=== PATIENT | female | born 1945 | race Caucasian/White ===

== ENCOUNTER 2018-10-01 14:57 | Inpatient (IN) ==
[2018-10-01] MEDS ORDERED: MoRPHine SULFATE 4 MG/ML 1 ML CARP\\VIAL IV PRN (15:37)
[2018-10-01] MEDS ORDERED: SODIUM CHLORIDE 0.9% 1000ML 500 ML IV ONE (15:37)
[2018-10-01] MEDS ORDERED: ONDANSETRON INJ 2 MG/ML 2 ML VIAL IV STA (15:37)
[2018-10-01 16:11] LABS: Basophils # (auto) 0.01 K/uL (0-0.2); Basophils % (auto) 0.1 %; Eosinophils # (auto) 0.06 K/uL (0-0.5); Eosinophils % (auto) 0.6 %; Hematocrit (blood only) 38.5 % (37-47); Hemoglobin 12.8 g/dL (12.0-16.0); Immature Granulocytes # (auto) 0.05 K/uL (0.00-0.02); Immature Granulocytes % (auto) 0.5 %; Lymphocytes # (auto) 1.03 K/uL (1.2-3.4); Lymphocytes % (auto) 10.8 %; Mean Corpuscular Hgb Conc 33.2 g/dL (32-36); Mean Corpuscular Volume 86.9 fL (80-100); Mean Platelet Volume 10.9 fL (7.4-10.4); Monocytes # (auto) 0.59 K/uL (0.11-0.59); Monocytes % (auto) 6.2 %; Neutrophils # (auto) 7.81 K/uL (1.4-6.5); Neutrophils % (auto) 81.8 %; Platelet Count 172 K/uL (130-400); RDW Coefficient of Variation 13.2 % (11.5-14.5); RDW Standard Deviation 42.4 fL (36.4-46.3); Red Blood Count 4.43 M/uL (4.2-5.4); White Blood Count 9.55 K/uL (4.8-10.8)
[2018-10-01 16:25] LABS: Partial Thromboplastin Time 27.5 Seconds (21.0-31.0); Prothrombin Time 10.7 Seconds (9.0-12.0)
[2018-10-01 16:31] LABS: BUN Creatinine Ratio 42.5 (10-20); Calcium 9.5 mg/dl (8.5-10.1); Creatinine Clr Calc Pharmacy 61.4 ml/min; Est GFR (African American) 77.1; Est GFR (Non-African American) 66.6; Potassium 4.9 mmol/L (3.5-5.1)
--- NOTE | 2018-10-01 17:02 | XRay Report ---
XR femur RT 2V routine CLINICAL HISTORY: fall, pain trauma. Pain. COMPARISON: None. DISCUSSION: Comminuted oblique fracture proximal right femoral shaft. This extends to the intertrocha nteric region of the right hip. No evidence for acetabular protrusion. Slice appear migration of the right femoral shaft. There is no evidence for soft tissue swelling. IMPRESSION: Comminuted fracture proximal femoral shaft. Mild superior migration right femoral shaft. Focal extension to the lesser trochanter and intertrochanteric region. The above report was generated using voice recognition software. It may contain grammatical, syntax or spelling errors. Electronically signed by: Zain Carreno M.D. 10/01/2018 5:00 PM
--- NOTE | 2018-10-01 17:03 | XRay Report ---
XR hip RT 2-3V w pelvis CLINICAL HISTORY: fall, pain COMPARISON: None. DISCUSSION: Comminuted fracture proximal femoral shaft. This extends to the intertrochanteric region and to lesser trochanter. No evidence for dislocation. IMPRESSION: Comminuted fracture proximal right femoral shaft extending to the intertrochanteric regio n of the right hip. No evidence of dislocation. The above report was generated using voice recognition software. It may contain grammatical, syntax or spelling errors. Electronically signed by: Zain Carreno M.D. 10/01/2018 5:01 PM
--- NOTE | 2018-10-01 17:03 | XRay Report ---
XR chest 1V not portable CLINICAL HISTORY: hip fx, fall trauma. Pain. COMPARISON STUDY: No previous studies for comparison. FINDINGS: The bones soft tissues and hemidiaphragms are normal. The cardiomediastinal silhouette is n ormal. The lungs are clear. The pulmonary vasculature is normal. Minimal platelike atelectasis left b ase. IMPRESSION: No acute process. The above report was generated using voice recognition software. It may contain grammatical, syntax or spelling errors. Electronically signed by: Zain Carreno M.D. 10/01/2018 5:02 PM
--- NOTE | 2018-10-01 17:24 | Emergency Department Note ---
Entered by Nyla Duff acting as a scribe for History of Present Illness General Chief complaint: Hip Pain Stated complaint: FALL, THIGH & HIP PAIN Time Seen by Provider: 10/01/18 15:29 Source: patient History of Present Illness Provider complaint: right hip pain Onset (ago): minute(s) (shortly prior to arrival ) Location: lower extremity (hip) and right Maximum Pain Intensity: 10 Quality: + other (pain) Treatments prior to arrival: other (75 Fentanyl, 4 Zofran ) The patient is a 73 year old female who presents to the Emergency Department with complaints of right hip pain occurring shortly prior to arrival. She rates her pain at a 10/10. She states that she fell while standing in the kitchen. She stopped to turn and fell. She reports hitting her right back when she fell. She states that she was not able to stand up after she fell. The patient states that she is not on any blood thinners but does take medication for diabetes. Review of notes show that the patient was given 75 mcg of Fentanyl and 4 mg of Zofran en route. Home Medications Home Medications Medication Instructions Recorded Confirmed Type acetaminophen [Tylenol Extra 1,000 mg PO Q6H PRN 10/01/18 10/01/18 History Strength] ascorbic acid (vitamin C) [Vitamin 1,000 mg PO DAILY 10/01/18 10/01/18 History C] calcium carbonate-vitamin D3 1 cap PO DAILY 10/01/18 10/01/18 History [Calcium 600 + D(3)] omega 5-yop-wgr-fish oil [[place]-3] 1 cap PO BID 10/01/18 10/01/18 History pioglitazone-metformin [Actoplus 1 tab PO BID 10/01/18 10/01/18 History MET] Allergies Allergy/AdvReac Type Severity Reaction Status Date / Time aspirin Allergy Intermediate CHEST Unverified 10/01/18 16:02 TIGHTNESS, BLURRED VISION Past Med/Surg History Medical History Diabetes (Chronic) Social History Feels Safe at Home: Yes Smoking Status: Never smoker Review of Systems See HPI for pertinent positives & negatives. and A total of 10 systems reviewed and were otherwise negative Physical Exam Vital Signs Vital Signs - 24 hr 10/01/18 15:17 10/01/18 17:03 Temperature 37.0 C Temperature Source Oral Sepsis Recent Fever Within 48 Hours No Sepsis New/Unexplained Change in Mental Status No Sepsis Action Taken by Nursing No Action Required Pulse Rate 86 Pulse Rate [Left Finger] 87 Respiratory Rate 18 20 Respiratory Effort / Characteristics Non-Labored Non-Labored Respiratory Depth Normal Normal Respiratory Pattern Regular Regular Blood Pressure 180/89 H Blood Pressure [Left Arm] 181/89 H Blood Pressure Mean 119 Blood Pressure Mean [Left Arm] 119 Pulse Oximetry 95 94 Oxygen Delivery Method Room Air Room Air GENERAL: Patient is in no acute distress. HEENT: No acute trauma, normocephalic atraumatic, mucous membranes moist, no nasal congestion, no scleral icterus. No scalp hematoma. NECK: No stridor, no adenopathy, no meningismus, trachea is midline. Nontender posterior C spine. LUNGS: Clear to auscultation bilaterally, no wheeze, no rhonchi, breath sounds equal. HEART: Without murmurs gallops or rubs, regular rate and rhythm. ABDOMEN: Soft, nontender, bowel sounds positive, no hernias, no peritonitis. EXTREMITIES: No edema. Right leg seems slightly shortened compared to the left. There is pain with palpation over the proximal right femur. There is pain with movement in the same area. No contusion. The knee and ankle appear non-tender. NEUROLOGIC: Oriented x 3, no acute motor or sensory deficits, no focal weakness. SKIN: No rash, no jaundice, no diaphoresis. Course 1531: The patient was evaluated in room C10. A history and physical were performed. 1709: I updated the patient and her on her imaging results. 1716: I discussed the patient's case with Dr. Sunny Weiner who will evaluate the patient for further management. Consultations Consultation #1: Dr. Sunny Weiner Time: 17:16 Administered Medications Morphine Sulfate (Morphine Sulfate) 4 mg IV Q15M PRN PRN Reason: Severe Pain (Rating 7,8,9,10) Stop: 10/15/18 15:36 Last Admin: 10/01/18 16:20 Dose: 4 mg Documented by: [id number] Discontinued Medications Sodium Chloride (Nss 1000ml) 500 mls @ 999 mls/hr IV .Q31M ONE Stop: 10/01/18 16:07 Last Infusion: 10/01/18 16:52 Dose: 0 mls/hr Documented by: [id number] Admin: 10/01/18 16:20 Dose: 999 mls/hr Documented by: [id number] Ondansetron HCl (Zofran) 4 mg IV NOW STA Stop: 10/01/18 15:38 Last Admin: 10/01/18 16:20 Dose: 4 mg Documented by: [id number] Medical Decision Making Differential Diagnosis Differentials include hip fracture, pelvic fracture, femur fracture, knee fracture, contusion, head or neck injury, anemia, and UTI. Medical Records Attestation: I reviewed the patient's medical records. Home Medications Current Medication List: was personally reviewed by me Laboratory Data Attestation: I reviewed the patient's lab results. Result diagrams: 10/01/18 15:53 10/01/18 15:53 Lab Results 10/01/18 10/01/18 10/01/18 Range/Units 15:53 15:53 15:53 WBC 9.55 (4.8-10.8) K/uL RBC 4.43 (4.2-5.4) M/uL Hgb 12.8 (12.0-16.0) g/dL Hct 38.5 (37-47) % MCV 86.9 (80-100) fL MCH 28.9 (25-34) pg MCHC 33.2 (32-36) g/dL RDW Std Deviation 42.4 (36.4-46.3) fL RDW Coeff of Mary 13.2 (11.5-14.5) % Plt Count 172 (130-400) K/uL MPV 10.9 H (7.4-10.4) fL Immature Gran % (Auto) 0.5 % Neut % (Auto) 81.8 % Lymph % (Auto) 10.8 % [place] % (Auto) 6.2 % Eos % (Auto) 0.6 % Baso % (Auto) 0.1 % Immature Gran # (Auto) 0.05 H (0.00-0.02) K/uL Neut # (Auto) 7.81 H (1.4-6.5) K/uL Lymph # (Auto) 1.03 L (1.2-3.4) K/uL [place] # (Auto) 0.59 (0.11-0.59) K/uL Eos # (Auto) 0.06 (0-0.5) K/uL Baso # (Auto) 0.01 (0-0.2) K/uL PT 10.7 (9.0-12.0) Seconds INR 1.0 (0.9-1.1) APTT 27.5 (21.0-31.0) Seconds PTT Ratio 1.0 Sodium 133 L (136-145) mmol/L Potassium 4.9 (3.5-5.1) mmol/L Chloride 99 (98-107) mmol/L Carbon Dioxide 29 (21-32) mmol/L Anion Gap 5.0 (3-11) BUN 37 H (7-18) mg/dl Creatinine 0.86 (0.6-1.2) mg/dl Est Cr Clr Drug Dosing 61.4 ml/min Est GFR ( Amer) 77.1 Est GFR (Non-Af Amer) 66.6 BUN/Creatinine Ratio 42.5 H (10-20) Glucose 144 H (70-99) mg/dl Calcium 9.5 (8.5-10.1) mg/dl Urine Color Urine Appearance (Clear) Urine pH (4.5-7.5) Ur Specific [place] (1.000-1.030) Urine Protein (Negative) Urine Glucose (UA) (Negative) Urine Ketones (Negative) Urine Blood (Negative) Urine Nitrite (Negative) Urine Bilirubin (Negative) Urine Urobilinogen (Negative) Ur Leukocyte Esterase (Negative) 10/01/18 Range/Units 17:15 WBC (4.8-10.8) K/uL RBC (4.2-5.4) M/uL Hgb (12.0-16.0) g/dL Hct (37-47) % MCV (80-100) fL MCH (25-34) pg MCHC (32-36) g/dL RDW Std Deviation (36.4-46.3) fL RDW Coeff of Mary (11.5-14.5) % Plt Count (130-400) K/uL MPV (7.4-10.4) fL Immature Gran % (Auto) % Neut % (Auto) % Lymph % (Auto) % [place] % (Auto) % Eos % (Auto) % Baso % (Auto) % Immature Gran # (Auto) (0.00-0.02) K/uL Neut # (Auto) (1.4-6.5) K/uL Lymph # (Auto) (1.2-3.4) K/uL [place] # (Auto) (0.11-0.59) K/uL Eos # (Auto) (0-0.5) K/uL Baso # (Auto) (0-0.2) K/uL PT (9.0-12.0) Seconds INR (0.9-1.1) APTT (21.0-31.0) Seconds PTT Ratio Sodium (136-145) mmol/L Potassium (3.5-5.1) mmol/L Chloride (98-107) mmol/L Carbon Dioxide (21-32) mmol/L Anion Gap (3-11) BUN (7-18) mg/dl Creatinine (0.6-1.2) mg/dl Est Cr Clr Drug Dosing ml/min Est GFR ( Amer) Est GFR (Non-Af Amer) BUN/Creatinine Ratio (10-20) Glucose (70-99) mg/dl Calcium (8.5-10.1) mg/dl Urine Color Yellow Urine Appearance Clear (Clear) Urine pH 7.0 (4.5-7.5) Ur Specific [place] 1.014 (1.000-1.030) Urine Protein Negative (Negative) Urine Glucose (UA) Negative (Negative) Urine Ketones Trace H (Negative) Urine Blood Negative (Negative) Urine Nitrite Negative (Negative) Urine Bilirubin Negative (Negative) Urine Urobilinogen Negative (Negative) Ur Leukocyte Esterase Negative (Negative) Imaging Data Radiologist's Impression: Radiology results as stated below per my review and the radiologist's interpretation: XR chest 1V not portable CLINICAL HISTORY: hip fx, fall trauma. Pain. COMPARISON STUDY: No previous studies for comparison. FINDINGS: The bones soft tissues and hemidiaphragms are normal. The cardiomediastinal silhouette is normal. The lungs are clear. The pulmonary vasculature is normal. Minimal platelike atelectasis left base. IMPRESSION: No acute process. The above report was generated using voice recognition software. It may contain grammatical, syntax or spelling errors. Electronically signed by: Zain Carreno M.D. 10/01/2018 5:02 PM XR hip RT 2-3V w pelvis CLINICAL HISTORY: fall, pain COMPARISON: None. DISCUSSION: Comminuted fracture proximal femoral shaft. This extends to the intertrochanteric region and to lesser trochanter. No evidence for dislocation. IMPRESSION: Comminuted fracture proximal right femoral shaft extending to the i ntertrochanteric region of the right hip. No evidence of dislocation. The above report was generated using voice recognition software. It may contain grammatical, syntax or spelling errors. Electronically signed by: Zain Carreno M.D. 10/01/2018 5:01 PM XR femur RT 2V routine CLINICAL HISTORY: fall, pain trauma. Pain. COMPARISON: None. DISCUSSION: Comminuted oblique fracture proximal right femoral shaft. This extends to the intertrochanteric region of the right hip. No evidence for acetabular protrusion. Slice appear migration of the right femoral shaft. There is no evidence for soft tissue swelling. IMPRESSION: Comminuted fracture proximal femoral shaft. Mild superior migration right femoral shaft. Focal extension to the lesser trochanter and intertrochanteric region. The above report was generated using voice recognition software. It may contain grammatical, syntax or spelling errors. Electronically signed by: Zain Carreno M.D. 10/01/2018 5:00 PM ECG Data Attestation: I personally reviewed and interpreted this ECG as follows: Indication: other (hip fracture ) Rate (beats per minute): 78 Rhythm: normal sinus Findings: + other (LVH); no PVC and no ST elevation Blood Pressure Blood Pressure Findings: Elevated blood pressure Blood Pressure Disposition: further management by hospitalist [facility] Narrative No leukocytosis or concerning anemia. No coagulopathy. No significant electrolyte abnormality. Chest film does not show pneumonia or CHF. EKG shows a sinus rhythm, no acute ischemia. Pelvis and right femur films demonstrate a proximal femur fracture with extension into the right hip. On exam, the patient did seem neurovascularly intact distally in the right lower extremity. The patient did not strike her head with this fall, there were no scalp hematomas, there was no neck pain. Patient received IV saline, IV Zofran. She was given IV morphine for pain control. The patient is in need of a hospital stay. She is going to require orthopedic intervention. I did consult the on-call hospitalist. The disability case manager has been involved. The patient and her are aware of the findings from today. Impression & Plan Closed fracture of right hip, Fall Discharge Plan Visit Data Chief Complaint: Hip Pain Stated Complaint: FALL, THIGH & HIP PAIN ED Provider: Contreras Holly Discharge Problem: Closed fracture of right hip, Fall Patient Disposition: Being Evaluated by Hospitalist Forms Stand Alone Forms: My [facility] [address] Prescriptions Prescriptions: No Action acetaminophen [Tylenol Extra Strength] 500 mg Tablet 1,000 mg PO Q6H PRN (Reason: Pain) RF: 0 ascorbic acid (vitamin C) [Vitamin C] 500 mg Tablet,Chewable 1,000 mg PO DAILY RF: 0 Calcium 600 + D(3) 600 mg calcium- 200 unit Capsule 1 cap PO DAILY RF: 0 pioglitazone-metformin [Actoplus MET] 15-500 mg tablet 1 tab PO BID RF: 0 [place]-3 350 mg-235 mg- 90 mg-597 mg Capsule,Delayed Release(Dr/Ec) 1 cap PO BID RF: 0 Referrals Referrals: PCP,NO [Primary Care Provider] - Discharge Problem: Closed fracture of right hip Qualifiers: Encounter type: initial encounter Qualified Code(s): S72.001A - Fracture of unspecified part of neck of right femur, initial encounter for closed fracture Fall Qualifiers: Encounter type: initial encounter Qualified Code(s): W19.XXXA - Unspecified fall, initial encounter The scribe's documentation has been prepared under my direction and personally reviewed by me in its entirety. I confirm that the note above accurately re flects all work, treatment, procedures, and medical decision making performed by me.
[2018-10-01 17:34] LABS: Appearance Urine Clear (Clear); Bilirubin Urine Negative (Negative); Blood Urine Negative (Negative); Color Urine Yellow; Glucose Urine UA Negative (Negative); Ketones Urine Trace (Negative); Leukocyte Esterase Urine Negative (Negative); Nitrite Urine Negative (Negative); Protein Urine Negative (Negative); Specific Gravity Urine 1.014 (1.000-1.030); Urobilinogen Urine Negative (Negative)
--- NOTE | 2018-10-01 18:34 | History & Physical Report ---
Date of Service October 01, 2018 Assessment & Plan (1) Closed fracture of right hip: Adult hip fracture order set was used. Cefazolin was chosen for preoperative antibiotic. Dr. lOivia was consulted for surgical evaluation should be kept n.p.o. after midnight Patient will have SCDs and teds for DVT prevention and postop DVT prevention will be based on surgeon's preference Pain control with parenteral opiates, hydration with fluids given her n.p.o. status after midnight Her RCRI is very low given she is no cerebrovascular cardiovascular disease and does not use insulin to treat her diabetes. (2) Diabetes: Regarding her diabetes she typically uses a combination pill of p.o. glitazone and metformin. This will be held in lieu of insulin sliding scale. She will be given a diabetic meal this evening and kept n.p.o. after midnight History of Present Illness Primary Care Provider: NO PCP Patient is living with her family when they are building a home in the area they are new to the area. Patient fell in the kitchen landing on her right side sustaining a comminuted hip fracture. Patient has very little medical problems for her age of 73 only taking an oral medication to control her diabetes. Patient previously has had surgery having hysterectomy in the past with no problems with anesthesia Prior to today the patient had no chest pain or pressure or dyspnea she is bothered by arthritic complaints of back pain where she does usually sleep in a recliner but is not because of shortness of breath is because of focal back pa in. She has no unusual bruising or bleeding she had no melena. In the emergency department her pain is controlled after being given morphine. She has no shortening or rotation although the x-ray is quite impressive Allergies Allergy/AdvReac Type Severity Reaction Status Date / Time aspirin Allergy Intermediate CHEST Unverified 10/01/18 16:02 TIGHTNESS, BLURRED VISION Home Medications Home Medications Medication Instructions Recorded Confirmed Type acetaminophen [Tylenol Extra 1,000 mg PO Q6H PRN 10/01/18 10/01/18 History Strength] ascorbic acid (vitamin C) [Vitamin 1,000 mg PO DAILY 10/01/18 10/01/18 History C] calcium carbonate-vitamin D3 1 cap PO DAILY 10/01/18 10/01/18 History [Calcium 600 + D(3)] omega 4-sza-ifv-fish oil [[place]-3] 1 cap PO BID 10/01/18 10/01/18 History pioglitazone-metformin [Actoplus 1 tab PO BID 10/01/18 10/01/18 History MET] Past Med/Surg History Medical History Diabetes (Chronic) Social History Feels Safe at Home: Yes Smoking Status: Never smoker Review of Systems Review of Systems: ROS: well nourished well developed. No double vision blurry vision No problems with speech or swallowing No palpitations, chest pain or pressure No Wheezing or breathing issues No abdominal pain nausea vomiting diarrhea changes in appetite or weight No burning urine urine frequency or changes in color Right hip pain tenderness to movement No skin rashes or oral lesions No unusual bruising or bleeding Chronic daily low back pain without radicular symptoms No changes in memory or confusion Physical Exam Physical Exam: The patient appeared well nourished and normally developed. Vital signs as documented. Head exam is unremarkable. normocephalic, atraumatic Neck is without jugular venous distension, thyromegaly, or lymphadenopathy Lungs are clear to auscultation and percussion. Cardiac exam reveals Rhythm is regular. First and second heart sounds normal. Abdominal exam reveals normal bowel sounds, no masses, no organomegaly Extremities are nonedematous and both pedal pulses are present he has marked varicosities of lower extremities Neurologic exam is A&Ox3, no focal deficits, lower extremity strength cannot be tested due to fracture Psychologically seems neither anxious or depressed Skin is warm Dry without bruises marked varicosities are noted Results & Data Vital Signs (Past 12 Hours) Vital Signs Temp Pulse Pulse Resp BP BP Pulse Ox 10/01/18 17:03 87 20 181/89 H 94 10/01/18 15:17 37.0 C 86 18 180/89 H 95 Diagnostic Findings Right femur x-ray: Comminuted fracture proximal femoral shaft. Mild superior migration right femoral shaft. Focal extension to the lesser trochanter and intertrochanteric region. ECG Additional Comments: Normal sinus rhythm Possible Left atrial enlargement (1) Closed fracture of right hip Encounter type: initial encounter Qualified Code(s): S72.001A - Fracture of unspecified part of neck of right femur, initial encounter for closed fracture
[2018-10-01] MEDS ORDERED: BISACODYL 10 MG SUPP PR PRN (19:34)
[2018-10-01] MEDS ORDERED: CARBOHYDRATES FOR HYPOGLYCEMIA PO PRN (19:34)
[2018-10-01] MEDS ORDERED: OXYCODONE HCL IR 5 MG TAB (IMMEDIATE RELEASE) PO PRN (19:34)
[2018-10-01] MEDS ORDERED: MAGNESIUM HYDROXIDE SUSP 30 ML UDC PO PRN (19:34)
[2018-10-01] MEDS ORDERED: GLUCAGON FOR INJ 1 MG VIAL SQ PRN (19:34)
[2018-10-01] MEDS ORDERED: ONDANSETRON INJ 2 MG/ML 2 ML VIAL IV PRN (19:34)
[2018-10-01] MEDS ORDERED: DEXTROSE 50% 50 ML SYRINGE IV PRN (19:34)
[2018-10-01] MEDS ORDERED: GLUCOSE 40% GEL 15 GM TUBE PO PRN (19:34)
[2018-10-01] MEDS ORDERED: GLUCOSE 10 TABS/TUBE PO PRN (19:34)
[2018-10-01] MEDS ORDERED: NALOXONE HCL 0.4 MG/1 ML VIAL/CARP IV PRN (19:34)
[2018-10-01] MEDS ORDERED: ACETAMINOPHEN 500 MG TAB PO PRN (19:34)
[2018-10-01] MEDS: MoRPHine SULFATE 2 MG/ML CARP IV PRN ×2 (20:12→22:22)
[2018-10-01] MEDS: SODIUM CHLORIDE 0.9% 1000ML 1,000 ML IV SCH (20:12)
[2018-10-01] MEDS ORDERED: INSULIN ASPART 100 UNITS/ML 3 ML PEN SC SCH (21:00)
--- NOTE | 2018-10-01 21:05 | Anesthesiology Consultation ---
Date of Service October 01, 2018 Assessment & Plan (1) Encounter for pre-operative examination: Chart Review Chart Review: Acceptable Risk for Surgery and Patient NOT seen in Pre Admission Testing Consults Requested none History Height/Weight Height: 5 ft 2 in Weight: 94.3 kg Allergies Allergy/AdvReac Type Severity Reaction Status Date / Time aspirin Allergy Intermediate CHEST Unverified 10/01/18 16:02 TIGHTNESS, BLURRED VISION Medications Home Medications Medication Instructions Recorded Confirmed Last Taken acetaminophen [Tylenol Extra 1,000 mg PO Q6H PRN 10/01/18 10/01/18 Unknown Strength] ascorbic acid (vitamin C) [Vitamin 1,000 mg PO DAILY 10/01/18 10/01/18 Unknown C] calcium carbonate-vitamin D3 1 cap PO DAILY 10/01/18 10/01/18 Unknown [Calcium 600 + D(3)] omega 1-kkx-tke-fish oil [[place]-3] 1 cap PO BID 10/01/18 10/01/18 Unknown pioglitazone-metformin [Actoplus 1 tab PO BID 10/01/18 10/01/18 10/01/18 09:00 MET] Active Medications Generic Name Dose Route Start Last Admin Trade Name Freq PRN Reason Stop Dose Admin Sodium Chloride 1,000 mls @ 85 mls/hr 10/01/18 19:34 10/01/18 20:12 Nss 1000ml IV 10/31/18 19:33 85 mls/hr .[id number] LIANA Administration Morphine Sulfate 2 mg 10/01/18 19:34 10/01/18 20:12 Morphine Sulfate IV 10/15/18 19:33 2 mg Q2H PRN Administration MODERATE Pain (Scale 4,5,6) Past Medical History Medical History Diabetes (Chronic) Social History Smoking Status: Never smoker Hx Alcohol Use: No Hx Substance Use: No substance use type: does not use Physical Exam Vital Signs Last Vital Signs Temp 36.9 C 10/01/18 19:35 Pulse 91 H 10/01/18 19:35 Resp 20 10/01/18 19:35 BP 164/80 H 10/01/18 19:35 Pulse Ox 96 10/01/18 19:35 Testing Laboratory Results 10/01/18 15:53 10/01/18 15:53 PT 10.7 Seconds (9.0-12.0) 10/01/18 15:53 INR 1.0 (0.9-1.1) 10/01/18 15:53 APTT 27.5 Seconds (21.0-31.0) 10/01/18 15:53 Urine Color Yellow 10/01/18 17:15 Urine Appearance Clear (Clear) 10/01/18 17:15 Urine pH 7.0 (4.5-7.5) 10/01/18 17:15 Ur Specific [place] 1.014 (1.000-1.030) 10/01/18 17:15 Urine Protein Negative (Negative) 10/01/18 17:15 Urine Glucose (UA) Negative (Negative) 10/01/18 17:15 Urine Ketones Trace (Negative) H 10/01/18 17:15 Urine Nitrite Negative (Negative) 10/01/18 17:15 Ur Leukocyte Esterase Negative (Negative) 10/01/18 17:15 10/01/18 20:06 POC Glucose 155 H
[2018-10-01] MEDS: DOCUSATE SODIUM/SENNA 50/8.6MG TAB PO SCH (21:28)
[2018-10-01] MEDS: OMEGA-3 (PURIFIED FISH OIL) 1 GM CAP PO SCH (21:28)
--- NOTE | 2018-10-01 21:47 | CT Scan Report ---
CT femur RT wo con CT DOSE: 1168.02 mGy.cm HISTORY: Fracture. Trauma. trauma/fracture TECHNIQUE: Multiaxial CT images of the right hip and femur were performed and reformatted in the sagi ttal and coronal plane without the use of contrast. A dose lowering technique was utilized adhering to the principles of ALARA. COMPARISON: None. FINDINGS: Comminuted fracture of the right femoral shaft and intertrochanteric region of the right hi p. There is a 10 cm oblique fracture of the proximal femoral shaft. This extends to the intertrochanteri c region where there is a comminuted fracture combined with a impaction type component. The impaction distance is estimated at 3 cm. There is mild external rotation of the right femoral hea d. Several comminuted fracture fragments are identified at intermediately inferior to the intertrochante hyun region. No evidence for dislocation or acetabular protrusion. Moderate surrounding soft tissue edematous change. IMPRESSION: 1. Comminuted fracture of the intertrochanteric region of the right hip with additional involvement o f a 10 cm length of the proximal femoral shaft. 2. Moderate impaction component estimated at approximately 3 cm. 4. No evidence for dislocation. 5. Moderate degenerative change of the femoral head and acetabulum. The above report was generated using voice recognition software. It may contain grammatical, syntax or spelling errors. Electronically signed by: Zain Carreno M.D. 10/01/2018 9:46 PM
[2018-10-01] MEDS ORDERED: Nursing to Pharmacy Communication ONE (22:41)
[2018-10-02] MEDS: INSULIN ASPART 100 UNITS/ML 3 ML PEN SC SCH ×4 (00:07→22:42)
[2018-10-02] MEDS ORDERED: CEFAZOLIN 3000MG 65 ML IV SCH (06:00)
[2018-10-02] MEDS: SODIUM CHLORIDE 0.9% 1000ML 1,000 ML IV SCH ×2 (06:35→22:40)
[2018-10-02 06:55] LABS: Hematocrit (blood only) 34.5 % (37-47); Hemoglobin 11.7 g/dL (12.0-16.0); Mean Corpuscular Hgb Conc 33.9 g/dL (32-36); Mean Corpuscular Volume 85.4 fL (80-100); Mean Platelet Volume 10.8 fL (7.4-10.4); Platelet Count 184 K/uL (130-400); RDW Coefficient of Variation 13.2 % (11.5-14.5); RDW Standard Deviation 41.7 fL (36.4-46.3); Red Blood Count 4.04 M/uL (4.2-5.4); White Blood Count 8.61 K/uL (4.8-10.8)
[2018-10-02 07:16] LABS: Estimated Average Glucose 154 mg/dl
[2018-10-02 07:31] LABS: BUN Creatinine Ratio 32.4 (10-20); Calcium 8.8 mg/dl (8.5-10.1); Creatinine Clr Calc Pharmacy 52.3 ml/min; Est GFR (African American) 63.5; Est GFR (Non-African American) 54.8; Potassium 4.3 mmol/L (3.5-5.1)
[2018-10-02] MEDS: ASCORBIC ACID 500 MG TAB PO SCH (09:47)
[2018-10-02] MEDS: OMEGA-3 (PURIFIED FISH OIL) 1 GM CAP PO SCH ×2 (09:47→22:41)
[2018-10-02] MEDS: CALCIUM 600MG + VIT D 400 IU TAB PO SCH (09:47)
[2018-10-02] MEDS: ACETAMINOPHEN 1,000 MG/100 ML VIAL IV PRN ×2 (09:52→23:14)
--- NOTE | 2018-10-02 11:07 | Anesthesiology Consultation ---
Date of Service October 02, 2018 I spoke with Joan Ulloa from medicine. The patient is medically stable for surgery. Assessment & Plan (1) Encounter for pre-operative examination: Chart Review Chart Review: Acceptable Risk for Surgery and Patient NOT seen in Pre Admission Testing Consults Requested none History Height/Weight Height: 5 ft 2 in Weight: 94.3 kg Allergies Allergy/AdvReac Type Severity Reaction Status Date / Time aspirin Allergy Intermediate CHEST Unverified 10/01/18 16:02 TIGHTNESS, BLURRED VISION Medications Home Medications Medication Instructions Recorded Confirmed Last Taken acetaminophen [Tylenol Extra 1,000 mg PO Q6H PRN 10/01/18 10/01/18 Unknown Strength] ascorbic acid (vitamin C) [Vitamin 1,000 mg PO DAILY 10/01/18 10/01/18 Unknown C] calcium carbonate-vitamin D3 1 cap PO DAILY 10/01/18 10/01/18 Unknown [Calcium 600 + D(3)] omega 2-wvh-wry-fish oil [[place]-3] 1 cap PO BID 10/01/18 10/01/18 Unknown pioglitazone-metformin [Actoplus 1 tab PO BID 10/01/18 10/01/18 10/01/18 09:00 MET] Active Medications Generic Name Dose Route Start Last Admin Trade Name Freq PRN Reason Stop Dose Admin Acetaminophen 1,000 mg 10/01/18 19:34 10/02/18 00:08 Tylenol PO 10/31/18 19:33 1,000 mg Q6H PRN Administration Pain Ascorbic Acid 1,000 mg 10/02/18 09:00 10/02/18 09:47 Vitamin C PO 11/01/18 08:59 Not Given DAILY LIANA Fish Oil 1 gm 10/01/18 21:00 10/02/18 09:47 [place]pin-3 (Purified Fish Oil) PO 10/31/18 20:59 Not Given BID LIANA Sodium Chloride 1,000 mls @ 85 mls/hr 10/01/18 19:34 10/02/18 07:16 Nss 1000ml IV 10/31/18 19:33 85 mls/hr .[id number] LIANA Infusion Acetaminophen 1,000 mg in 100 mls @ 400 mls/hr 10/02/18 09:46 10/02/18 09:52 Ofirmev IV 11/01/18 09:45 400 mls/hr Q8H PRN Administration Pain Insulin Aspart 0 units 10/02/18 00:00 10/02/18 06:41 Novolog Flexpen SC 10/31/18 20:59 Not Given Q6 LIANA Morphine Sulfate 2 mg 10/01/18 19:34 10/01/18 22:22 Morphine Sulfate IV 10/15/18 19:33 2 mg Q2H PRN Administration MODERATE Pain (Scale 4,5,6) Multivitamins/Minerals 1 tab 10/02/18 09:00 10/02/18 09:47 Caltrate Plus PO 11/01/18 08:59 Not Given DAILY LIANA Oxycodone HCl 10 mg 10/01/18 19:34 10/01/18 21:29 Roxicodone Immediate Rel PO 10/15/18 19:33 10 mg Q4H PRN Administration SEVERE Pain (Scale 7,8,9,10) Senna/Docusate Sodium 2 tab 10/01/18 21:00 10/01/18 21:28 Senokot S PO 10/31/18 20:59 Not Given HS LIANA NPO Date Last Intake of Fluids: 10/01/18 Time Last Intake of Fluids: 23:59 Date Last Intake of Solids: 10/01/18 Time Last Intake of Solids: 23:59 Past Medical History Medical History Diabetes (Chronic) Social History Smoking Status: Never smoker Hx Alcohol Use: No Hx Substance Use: No substance use type: does not use Physical Exam Vital Signs Last Vital Signs Temp 37.0 C 10/02/18 08:00 Pulse 74 10/02/18 08:00 Resp 12 10/02/18 08:00 BP 154/77 H 10/02/18 08:00 Pulse Ox 97 10/02/18 08:00 Testing Electrocardiogram Date: 10/01/18 Findings: + NSR @ (78) and + LVH pulmonary disease pattern Chest X-Ray Date: 10/01/18 [facility], [place] [phone] XRay Report Patient: Davin RUSH Date: 10/01/18 MR#: [id number]: [address] Acct ID:[id number]: Date: 1945[facility] Zip: [place] [address] Age: 73Location: ED Sex: F Room/Bed: Att Phy: Diagnosis: FALL, THIGH & HIP PAIN Maria Isabel Phy: PCP,NO Service Date: 10/01/18 [facility] Phy: Interpreting Phy: Zain Carreno MD Admit Phy: Ordering Phy: Contreras Holly M.D. cc: ~ XR chest 1V not portable CLINICAL HISTORY: hip fx, fall trauma. Pain. COMPARISON STUDY: No previous studies for comparison. FINDINGS: The bones soft tissues and hemidiaphragms are normal. The cardiomediastinal silhouette is normal. The lungs are clear. The pulmonary vasculature is normal. Minimal platelike atelectasis left base. IMPRESSION: No acute process. The above report was generated using voice recognition software. It may contain grammatical, syntax or spelling errors. Electronically signed by: Zain Carreno M.D. 10/01/2018 5:02 PM Laboratory Results 10/02/18 06:39 10/02/18 06:39 Blood Type O Positive 10/01/18 19:52 Antibody Screen NEGATIVE 10/01/18 19:52 PT 10.7 Seconds (9.0-12.0) 10/01/18 15:53 INR 1.0 (0.9-1.1) 10/01/18 15:53 APTT 27.5 Seconds (21.0-31.0) 10/01/18 15:53 Hemoglobin A1c 7.0 % (4.5-5.6) H 10/02/18 06:39 Urine Color Yellow 10/01/18 17:15 Urine Appearance Clear (Clear) 10/01/18 17:15 Urine pH 7.0 (4.5-7.5) 10/01/18 17:15 Ur Specific [place] 1.014 (1.000-1.030) 10/01/18 17:15 Urine Protein Negative (Negative) 10/01/18 17:15 Urine Glucose (UA) Negative (Negative) 10/01/18 17:15 Urine Ketones Trace (Negative) H 10/01/18 17:15 Urine Nitrite Negative (Negative) 10/01/18 17:15 Ur Leukocyte Esterase Negative (Negative) 10/01/18 17:15 10/02/18 10/01/18 05:57 23:47 POC Glucose 150 H 181 H
--- NOTE | 2018-10-02 14:56 | Orthopedic Consultation ---
Date of Consultation October 02, 2018 Assessment & Plan (1) Closed comminuted intertrochanteric fracture of right femur: Dr Jolly has reviewed the films. Patient has a right intertrochanteric with subtrochanteric extension fracture which will require trochanteric femoral nailing along with likely cabling of the sub-troch extension. Surgery is currently planned for later this evening versus tomorrow morning. I personally saw and examined the patient. I have indicated her for open versus closed reduction internal fixation with long cephalo-medullary nail for unstable inotrope fracture and subdural extension into proximal femur. The risk benefits complications and alternatives of the procedure were explained to the patient in detail and include however not limited to infections, blood clots, acute blood loss, injury to surrounding nerves, bone, vessels, soft tissue, arthrofibrosis, chronic pain, malunion, nonunion, failure of the implants, cardiac and pulmonary events and . The patient and who was present at bedside wish to proceed with surgical obtained. History of Present Illness Reason for Consultation: Right comminuted proximal femur fracture Attending Physician: Jigar Leon DO History of Present Illness Patient is a 73-year-old female who recently has moved to the area and is living with family until her new house is built. She states that she was in the kitchen getting ready to prepare for some lunch. She ended up planting her foot and turning and she states that she has some low back discomfort at times of which upon turning did cause her some discomfort. She also at that time lost her balance and fell onto her right side. She had immediate pain in her right thigh and was unable to get up and ambulate. Her was close by and witnessed the fall. She denies loss of consciousness. She denies shortness of breath, chest pain, lightheadedness prior to or after the fall. She states that she did not hit her head in the fall. She was brought to [facility] ED where she was seen by the staff. X-rays were taken and was found that she had a right comminuted proximal femur fracture. She was admitted for further care we have been asked to see her for her fracture. Allergies Allergy/AdvReac Type Severity Reaction Status Date / Time aspirin Allergy Intermediate CHEST Unverified 10/01/18 16:02 TIGHTNESS, BLURRED VISION Home Medications Home Medications Medication Instructions Recorded Confirmed Type acetaminophen [Tylenol Extra 1,000 mg PO Q6H PRN 10/01/18 10/01/18 History Strength] ascorbic acid (vitamin C) [Vitamin 1,000 mg PO DAILY 10/01/18 10/01/18 History C] calcium carbonate-vitamin D3 1 cap PO DAILY 10/01/18 10/01/18 History [Calcium 600 + D(3)] omega 1-zkn-rfs-fish oil [[place]-3] 1 cap PO BID 10/01/18 10/01/18 History pioglitazone-metformin [Actoplus 1 tab PO BID 10/01/18 10/01/18 History MET] Patient History Medical History Diabetes (Chronic) Social History Preferred Language: Monegasque Communication Ability: Effective 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 She states that she is more comfortable now that traction has been applied to her right lower extremity. Initially focusing on the right lower extremity, she is currently in 5 pounds of Mcgarry's traction which is left on during exam. Her right proximal thigh has swelling and is tender on palpation. Palpation of the right knee proves it to be nontender. No range of motion is done at this time due to patient being in traction. She has good range of motion of her right ankle and toes and has good sensation. Left lower extremity is benign and is nontender at the left hip knee and ankle and range of motion is within normal limits. Distal pulses are 2/4 bilaterally. Upper extremities are nontender at the shoulders elbows and wrists and she has good range of motion. Distal pulses are equal bilaterally. She denies any neck pain at this time on palpation and denies thoracic and low back pain currently. All of her pain is currently coming from her right proximal femur of which she states the pain is a 5/10 at this time. There is no gross motor or sensory loss at this time. Results & Data Vital Signs (Past 12 Hours) Vital Signs Temp Pulse Resp BP Pulse Ox 10/02/18 12:00 37.2 C 71 12 132/56 L 96 10/02/18 08:00 37.0 C 74 12 154/77 H 97
--- NOTE | 2018-10-02 16:19 | Hospitalist Progress Note ---
Date of Service October 02, 2018 Assessment & Plan (1) Closed fracture of right hip: - Mechanical fall resulting in a comminuted and moderately impacted intertrochanteric fx with imvolvement of the proximal femoral shaft - Geriatric hip protocol; SCDs/TEDs and further DVT prophylaxis per surgical team - Discussed benefits of traction therapy which was ordered by orthopedics; Pain control with Tylenol/Morphine PRN and further recommendations per ortho - Revised cardiac risk assessment low - no cardiovascular/cerebrovascular history/controlled DM/no respiratory or ACS complaints - some limitations of mobility due to muscular issues and sleeps in a recliner but denies respiratory compromise - medically suitable for surgical intervention - Orthopedics following - discussed with team and anesthesiology - anticipating nailing/repair either today vs tomorrow Present on Admission?: Yes (2) Diabetes: - Well controlled given age with A1c of 7 - Hold Pioglitazone/Metformin and cover with SSI - can resume home meds on D/C Subjective Pt reports her pain was getting a little more progressive this morning. Only required Tylenol overnight but having more spasmodic pain. Discussed possibility of traction. Possible surgery today or tomorrow. Verbalizes no other complaints at this time other than dry mouth. No ACS symptoms or known cardiac issue. Diabetes well controlled on oral anti- diabetics. Discussed with orthopedics and anesthesia and is optimal for surgical intervention Review of Systems Constitutional: no fever and no chills Eyes: no worsening vision Ear, Nose, Mouth, Throat: + dry mouth; no sore throat and no dysphagia Respiratory: no cough, no dyspnea and no dyspnea on exertion Cardiovascular: no chest pain, no palpitations, no lightheadedness and no edema Gastrointestinal: no abdominal pain, no nausea, no vomiting, no constipation and no diarrhea/loose stools Genitourinary: no dysuria Musculoskeletal: + joint pain (Right Hip/Femur) Integumentary: no rash Neurologic: + falls (x 1 resulting in fx); no syncope Physical Exam Constitutional: well developed and well nourished; no acute distress and not ill appearing Eyes: + anicteric sclerae ENMT: Ears: no hearing impairment Neck: normal visual inspection and trachea midline Respiratory: normal respiratory effort, lungs clear to auscultation Cardiovascular: RRR, no murmur, no edema Gastrointestinal (Abdomen): Inspection/Auscultation: normal bowel sounds; abdomen not distended Percussion/Palpation: abdomen soft; abdomen nontender Musculoskeletal: Head/Neck/Chest: normocephalic, head atraumatic and neck supple Extremities: no cyanosis and no clubbing RLE slightly shortened and externally rotated; movement to toes intact and reported intact sensation; evidence of chronic venous changes of b/l shins/lower legs; no open areas around R hip or ecchymosis evident in her current placement Skin: no rashes, warm and dry Neurologic: moves all extremities (did not test RLE but does have toe movement) Psychiatric: A+Ox3, euthymic affect Results & Data Vital Signs (Past 12 Hours) Vital Signs Temp Pulse Pulse Resp BP Pulse Ox 10/02/18 15:49 37.3 C 79 19 152/82 H 96 10/02/18 12:00 37.2 C 71 12 132/56 L 96 10/02/18 08:00 37.0 C 74 12 154/77 H 97 (1) Closed fracture of right hip Encounter type: initial encounter Qualified Code(s): S72.001A - Fracture of unspecified part of neck of right femur, initial encounter for closed fracture
[2018-10-02] MEDS ORDERED: BUPIVACAINE/EPINEPHRINE 0.5% MPF 1:200,000 30 ML VIAL ONE (16:33)
[2018-10-02] MEDS: MoRPHine SULFATE 2 MG/ML CARP IV PRN (16:47)
[2018-10-02] MEDS ORDERED: HYDROmorphone INJ 2 MG/ML SYR/VIAL IV PRN (17:21)
[2018-10-02] MEDS ORDERED: ePHEDrine sulfate 50 MG/ML AMP IV PRN (17:21)
[2018-10-02] MEDS ORDERED: ONDANSETRON INJ 2 MG/ML 2 ML VIAL IV PRN (17:21)
[2018-10-02] MEDS ORDERED: ATROPINE SULFATE 0.1 MG/ML 10ML SYR IV PRN (17:21)
[2018-10-02] MEDS ORDERED: DEXAMETHASONE SOD INJ 4 MG/ML VIAL IV PRN (17:21)
[2018-10-02] MEDS ORDERED: fentaNYL citrate 100 MCG/2 ML VIAL ONE ×5 (17:22→21:48)
[2018-10-02] MEDS ORDERED: MIDAZOLAM HCL 1 MG/ML 2ML VIAL ONE ×2 (17:22)
[2018-10-02] MEDS ORDERED: PROPOFOL IV EMULSION 10 MG/ML 20 ML VIAL IV ONE ×2 (17:22→18:06)
--- NOTE | 2018-10-02 17:49 | History & Physical Bridge Note ---
Date of Service October 02, 2018 History & Physical Bridge Note I have examined the patient, reviewed the History & Physical and in the interval since the performance of the History & Physical I have noted the following changes of clinical significance: no changes noted
[2018-10-02] MEDS ORDERED: ROCURONIUM BROMIDE 10 MG/ML 5 ML VIAL ONE (18:06)
[2018-10-02] MEDS ORDERED: DEXAMETHASONE SOD INJ 4 MG/ML VIAL ONE (18:06)
[2018-10-02] MEDS ORDERED: ONDANSETRON INJ 2 MG/ML 2 ML VIAL ONE (18:06)
[2018-10-02] MEDS ORDERED: NEOSTIGMINE METHYLSULFATE 5 MG/5 ML SYR ONE (18:06)
[2018-10-02] MEDS ORDERED: BACITRACIN INJ 50,000 UNIT VIAL ONE (18:11)
[2018-10-02] MEDS ORDERED: PHENYLEPHRINE HCL 10 MG/ML VIAL ONE (20:53)
--- NOTE | 2018-10-02 21:02 | Fluoroscopy Report ---
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 COMPARISON: Right hip radiographs 10/01/2018 TECHNIQUE: 7 spot fluoroscopic images of the right hip were obtained utilizing 194.9 seconds fluorosc opy time FINDINGS: Status post placement of an intratrochanteric nail with elongated medullary britney fixating the previous ly described comminuted proximal right femoral fracture. There is improved alignment with persistent several millimeters lateral displacement about the greater trochanteric fracture with a few millimete rs medial displacement about the lesser trochanteric fracture. Proximal cerclage wires of the humeral shaft with 2 distal cannulated screws. Degenerative changes of the knee and hip. IMPRESSION: Fluoroscopic assistance as above. Please see operative report for further details. The above report was generated using voice recognition software. It may contain grammatical, syntax o r spelling errors. Electronically signed by: Matty Mccarthy M.D. 10/02/2018 9:01 PM
--- NOTE | 2018-10-02 21:11 | Post Operative Brief Note ---
Immediate Post Op Note v1 Date of Surgery October 02, 2018 Pre & Post Diagnosis Operation Date: 10/02/18 09:10 Pre-Op Diagnosis: RIGHT FEMUR FRACTURE Post-Op Diagnosis: RIGHT FEMUR FRACTURE Procedure Operation Date: 10/02/18 09:10 Actual Procedures p Right Long Trochanteric Nail(Right) - Christopher Jolly DO Surgeon Christopher Jolly DO Dining Room Helper none Estimated Blood Loss 475 Findings Consistent with Post-Op Diagnosis Fluids 1300 cc LR Specimens none Anesthesia Type General Complications none Disposition Disposition: Recovery Room Overlapping Procedure I was present for: the critical portions of procedure. I was immediately available: during the entire case. Back up surgeon: was not required during procedure.
[2018-10-02] MEDS: fentaNYL citrate 100 MCG/2 ML VIAL IV PRN ×2 (21:48→21:55)
--- NOTE | 2018-10-02 21:53 | Orthopedic Progress Note ---
Date of Service October 02, 2018 Assessment & Plan (1) Closed comminuted intertrochanteric fracture of right femur: s/p open reduction internal fixation, right hip, cephalomedullary nail and cables -ancef x 24 -DVT ppx - lovenox 40 q daily -TTWB RLE -PT/OT when medically stable -am labs -PO XR demonstrates a well aligned well fixed orthopedic implant, near anatomic alignment of the fracture. Subjective Post Operative Progress Note Patient seen in pacu, comfortable, c/o pain, no acute issues. Review of Systems Review of Systems: All systems reviewed & are unremarkable except as noted in HPI & below Constitutional: as per Subjective / HPI Physical Exam Physical Exam: RLE NVSI +EHL/FHL/TA/GS SILT grossly, +2 DP pulse, compartments soft NT, dressing cdi. Constitutional: WD/WN, vitals as above Results & Data Vital Signs (Past 12 Hours) Vital Signs Temp Pulse Pulse Resp BP Pulse Ox 10/02/18 21:35 67 21 174/67 H 100 10/02/18 21:25 72 18 179/75 H 100 10/02/18 21:17 37 C 69 21 183/84 H 100 10/02/18 17:20 37.4 C 79 12 187/68 H 94 10/02/18 15:49 37.3 C 79 19 152/82 H 96 10/02/18 12:00 37.2 C 71 12 132/56 L 96
--- NOTE | 2018-10-02 21:56 | Anesthesiology Progress Note ---
Date of Service October 02, 2018 Anesthesia Post Procedure Vital Signs Vital Signs: Temp Pulse Pulse Resp BP Pulse Ox Pulse Ox 10/02/18 21:35 67 21 174/67 H 100 10/02/18 21:25 72 18 179/75 H 100 10/02/18 21:17 37 C 69 21 183/84 H 100 10/02/18 17:20 37.4 C 79 12 187/68 H 94 10/02/18 15:49 37.3 C 79 19 152/82 H 96 10/02/18 12:00 37.2 C 71 12 132/56 L 96 10/02/18 08:00 37.0 C 74 12 154/77 H 97 10/02/18 00:15 95 10/01/18 23:25 36.9 C 91 H 18 165/81 H 95 Pain Intensity Right Leg: Pain Intensity: 5 Transfer of Care Handoff Completed per policy Notes Mental Status: alert / awake / arousable and participated in evaluation Patient Amnestic to Procedure: Yes Nausea / Vomiting: adequately controlled Pain: adequately controlled Airway Patency, RR, SpO2: stable & adequate BP & HR: stable & adequate Hydration State: stable & adequate Anesthetic Complications: no major complications apparent
--- NOTE | 2018-10-02 22:03 | XRay Report ---
XR femur RT 2V routine HISTORY: 73 years-old Female post op, in pacu acute right hip fracture COMPARISON: Pelvis right hip radiographs 10/01/2018 TECHNIQUE: 2 views of the right femur FINDINGS: Status post placement of intertrochanteric male with elongated medullary britney fixating the previously described acute comminuted fracture of the proximal right femur. 11 mm lateral displacement about the greater trochanter with several millimeters superior displacement about the lesser trochanter. Align ment is otherwise near-anatomic. There are 2 proximal cerclage wires with 2 distal cannulated screws. No new acute fracture identified. Lateral skin iris with expected postsurgical soft tissue swelli ng and deep tissue air. No retained foreign body identified. Changes about the knee and hip. IMPRESSION: Improved alignment status post placement of an intratrochanteric nail with medullary britney as above. The above report was generated using voice recognition software. It may contain grammatical, syntax o r spelling errors. Electronically signed by: Matty Mccarthy M.D. 10/02/2018 10:01 PM
[2018-10-02] MEDS ORDERED: COUGH DROP (SUGAR FREE) LOZ 24 LOZ/1 BOX BUCCAL PRN (22:34)
[2018-10-02] MEDS ORDERED: OXYCODONE HCL IR 5 MG TAB (IMMEDIATE RELEASE) PO PRN (22:34)
[2018-10-02] MEDS ORDERED: NALOXONE HCL 0.4 MG/1 ML VIAL/CARP IV PRN (22:34)
[2018-10-02] MEDS: DOCUSATE SODIUM/SENNA 50/8.6MG TAB PO SCH (22:36)
[2018-10-03] MEDS ORDERED: Nursing to Pharmacy Communication ONE (00:08)
[2018-10-03] MEDS: CEFAZOLIN 2000MG 2,000 MG/15 ML SYR IV SCH ×2 (00:23→05:31)
[2018-10-03] MEDS: SODIUM CHLORIDE 0.9% 1000ML 1,000 ML IV SCH (07:41)
[2018-10-03 08:30] LABS: Basophils # (auto) 0.01 K/uL (0-0.2); Basophils % (auto) 0.1 %; Hematocrit (blood only) 26.3 % (37-47); Hemoglobin 8.9 g/dL (12.0-16.0); Immature Granulocytes # (auto) 0.02 K/uL (0.00-0.02); Immature Granulocytes % (auto) 0.2 %; Lymphocytes # (auto) 0.95 K/uL (1.2-3.4); Lymphocytes % (auto) 9.9 %; Mean Corpuscular Hgb Conc 33.8 g/dL (32-36); Mean Corpuscular Volume 85.7 fL (80-100); Mean Platelet Volume 11.2 fL (7.4-10.4); Monocytes # (auto) 0.98 K/uL (0.11-0.59); Monocytes % (auto) 10.2 %; Neutrophils # (auto) 7.68 K/uL (1.4-6.5); Neutrophils % (auto) 79.6 %; Platelet Count 175 K/uL (130-400); RDW Coefficient of Variation 13.4 % (11.5-14.5); RDW Standard Deviation 41.5 fL (36.4-46.3); Red Blood Count 3.07 M/uL (4.2-5.4); White Blood Count 9.64 K/uL (4.8-10.8)
[2018-10-03 08:37] LABS: BUN Creatinine Ratio 29.5 (10-20); Calcium 8.2 mg/dl (8.5-10.1); Creatinine Clr Calc Pharmacy 50.8 ml/min; Est GFR (African American) 61.3; Est GFR (Non-African American) 52.9; Potassium 4.3 mmol/L (3.5-5.1)
[2018-10-03] MEDS: ENOXAPARIN INJ 40 MG/0.4 ML SYR SQ SCH (09:24)
[2018-10-03] MEDS: OMEGA-3 (PURIFIED FISH OIL) 1 GM CAP PO SCH ×2 (09:24→20:04)
[2018-10-03] MEDS: CALCIUM 600MG + VIT D 400 IU TAB PO SCH (09:24)
[2018-10-03] MEDS: INSULIN ASPART 100 UNITS/ML 3 ML PEN SC SCH ×4 (09:25→21:13)
[2018-10-03] MEDS: ASCORBIC ACID 500 MG TAB PO SCH (09:25)
--- NOTE | 2018-10-03 11:56 | Hospitalist Progress Note ---
Date of Service October 03, 2018 Assessment & Plan (1) Closed fracture of right hip: - Mechanical fall resulting in a comminuted and moderately impacted intertrochanteric fx with involvement of the proximal femoral shaft - Geriatric hip protocol; SCDs/TEDs; Enoxaparin 40 mg SC daily - Pain control with Tylenol/Oxycodone/Morphine PRN - Orthopedics following - appreciate surgical management - PT/OT - anticipating [facility] for rehab (2) Diabetes: - Well controlled given age with A1c of 7 - Hold Pioglitazone/Metformin and cover with SSI - can resume home meds on D/C Subjective Reports her pain is feeling much better today. Still with some mild discomfort but is tolerable per her report. Tolerating her diet without issue. States she tried to get in the chair with therapy but got lightheaded and pale. States she is feeling much better now that she is in the bed. Anticipating [facility] on discharge. Review of Systems Constitutional: no fever and no chills Ear, Nose, Mouth, Throat: no dry mouth, no sore throat and no dysphagia Respiratory: no cough and no dyspnea Cardiovascular: + lightheadedness; no chest pain, no palpitations and no edema Gastrointestinal: no abdominal pain, no nausea, no vomiting, no constipation and no diarrhea/loose stools Genitourinary: no dysuria Musculoskeletal: + joint pain (mild in R hip - controlled) Integumentary: no rash Neurologic: no syncope Physical Exam Constitutional: well developed and well nourished; no acute distress and not ill appearing Eyes: + anicteric sclerae ENMT: Ears: no hearing impairment Neck: normal visual inspection and trachea midline Respiratory: normal respiratory effort, lungs clear to auscultation Cardiovascular: RRR, no murmur, no edema Gastrointestinal (Abdomen): Inspection/Auscultation: normal bowel sounds; abdomen not distended Percussion/Palpation: abdomen soft; abdomen nontender Musculoskeletal: Head/Neck/Chest: normocephalic, head atraumatic and neck supple Extremities: no cyanosis and no clubbing Skin: no rashes, warm and dry Neurologic: moves all extremities (did not test RLE but does have toe/ankle movement) Psychiatric: A+Ox3, euthymic affect Results & Data Vital Signs (Past 12 Hours) Vital Signs Temp Pulse Resp BP Pulse Ox Pulse Ox 10/03/18 11:09 37.2 C 79 18 120/69 90 10/03/18 06:51 37.0 C 78 18 117/72 97 10/03/18 04:15 37.3 C 75 16 112/72 99 10/03/18 04:00 98 10/03/18 00:30 36.4 C L 70 18 104/64 99 (1) Closed fracture of right hip Encounter type: initial encounter Qualified Code(s): S72.001A - Fracture of unspecified part of neck of right femur, initial encounter for closed fracture
[2018-10-03] MEDS ORDERED: OXYCODONE HCL IR 5 MG TAB (IMMEDIATE RELEASE) PO PRN (11:57)
--- NOTE | 2018-10-03 15:21 | Orthopedic Progress Note ---
Date of Service October 03, 2018 Assessment & Plan (1) Closed comminuted intertrochanteric fracture of right femur: s/p open reduction internal fixation, right hip, cephalomedullary nail and cables POD#1 -ancef x 24 -DVT ppx - lovenox 40 q daily -TTWB RLE -PT/OT when medically stable -am labs - hgb 8.9 -PO XR demonstrates a well aligned well fixed orthopedic implant, near anatomic alignment of the fracture. Subjective Post Operative Progress Note Patient seen sitting up in bed, comfortable, denies complaints, pain well controlled, no acute issues. Review of Systems Review of Systems: All systems reviewed & are unremarkable except as noted in HPI & below Constitutional: as per Subjective / HPI Physical Exam Physical Exam: RLE NVSI +EHL/FHL/TA/GS SILT grossly, +2 DP pulse, compartments soft NT, dressing cdi. Constitutional: WD/WN, vitals as above Results & Data Vital Signs (Past 12 Hours) Vital Signs Temp Pulse Resp BP Pulse Ox Pulse Ox Pulse Ox 10/03/18 11:09 37.2 C 79 18 120/69 90 10/03/18 10:57 98 10/03/18 06:51 37.0 C 78 18 117/72 97 10/03/18 04:15 37.3 C 75 16 112/72 99 10/03/18 04:00 98
[2018-10-03] MEDS: SENNA 8.6 MG TAB PO SCH (20:04)
[2018-10-03] MEDS: DOCUSATE SODIUM/SENNA 50/8.6MG TAB PO SCH (20:04)
[2018-10-03] MEDS: ACETAMINOPHEN 1,000 MG/100 ML VIAL IV PRN (22:50)
[2018-10-04] MEDS: INSULIN ASPART 100 UNITS/ML 3 ML PEN SC SCH ×5 (01:09→20:57)
[2018-10-04 05:59] LABS: Basophils # (auto) 0.03 K/uL (0-0.2); Basophils % (auto) 0.3 %; Eosinophils # (auto) 0.19 K/uL (0-0.5); Eosinophils % (auto) 2.2 %; Hematocrit (blood only) 24.1 % (37-47); Hemoglobin 8.2 g/dL (12.0-16.0); Immature Granulocytes # (auto) 0.04 K/uL (0.00-0.02); Immature Granulocytes % (auto) 0.5 %; Lymphocytes # (auto) 2.02 K/uL (1.2-3.4); Lymphocytes % (auto) 23.2 %; Mean Corpuscular Volume 84.9 fL (80-100); Mean Platelet Volume 10.2 fL (7.4-10.4); Monocytes # (auto) 1.41 K/uL (0.11-0.59); Monocytes % (auto) 16.2 %; Neutrophils % (auto) 57.6 %; Platelet Count 142 K/uL (130-400); RDW Coefficient of Variation 13.3 % (11.5-14.5); RDW Standard Deviation 41.3 fL (36.4-46.3); Red Blood Count 2.84 M/uL (4.2-5.4); White Blood Count 8.69 K/uL (4.8-10.8)
[2018-10-04 06:52] LABS: BUN Creatinine Ratio 29.5 (10-20); Calcium 8.6 mg/dl (8.5-10.1); Creatinine Clr Calc Pharmacy 54.4 ml/min; Est GFR (African American) 66.7; Est GFR (Non-African American) 57.5; Potassium 4.3 mmol/L (3.5-5.1)
[2018-10-04] MEDS: ACETAMINOPHEN 1,000 MG/100 ML VIAL IV PRN ×2 (08:26→20:17)
[2018-10-04] MEDS: CALCIUM 600MG + VIT D 400 IU TAB PO SCH (08:33)
[2018-10-04] MEDS: ENOXAPARIN INJ 40 MG/0.4 ML SYR SQ SCH (08:33)
[2018-10-04] MEDS: ASCORBIC ACID 500 MG TAB PO SCH (08:33)
[2018-10-04] MEDS: OMEGA-3 (PURIFIED FISH OIL) 1 GM CAP PO SCH ×2 (08:34→20:16)
--- NOTE | 2018-10-04 09:09 | Orthopedic Progress Note ---
Date of Service October 04, 2018 Assessment & Plan (1) Closed comminuted intertrochanteric fracture of right femur: s/p open reduction internal fixation, right hip, cephalomedullary nail and cables POD#2 -ancef x 24 -DVT ppx - lovenox 40 q daily -TTWB RLE -PT/OT when medically stable -am labs - hgb 8.2 Plan for SNF/Rehab Subjective POD 2 s/p Left TFN/cabling of femur fx. Pt currently sitting up in bed awake and alert. No complaints currently. Nursing present to bathe her. States pain is controlled presently. Denies SOB, CP, LH. Physical Exam Physical Exam: Dressings C/D/I. Thigh with swelling but soft. Calves are soft, NT. NV intact. Toes mobile. Results & Data Vital Signs (Past 12 Hours) Vital Signs Temp Pulse Resp BP Pulse Ox Pulse Ox 10/04/18 07:14 37.6 C H 86 18 150/76 H 91 10/04/18 04:00 95 10/04/18 03:08 37.6 C H 95 H 14 132/75 92 10/04/18 00:00 94 10/03/18 23:27 38.0 C H 92 H 14 126/65 93
[2018-10-04 10:03] LABS: Hematocrit (blood only) 23.2 % (37-47); Hemoglobin 7.7 g/dL (12.0-16.0)
[2018-10-04 14:19] LABS: Hemoglobin 7.7 g/dL (12.0-16.0)
--- NOTE | 2018-10-04 14:41 | Hospitalist Progress Note ---
Date of Service October 04, 2018 Assessment & Plan (1) Closed fracture of right hip: - Mechanical fall resulting in a comminuted and moderately impacted intertrochanteric fx with involvement of the proximal femoral shaft - now S/P nailing - Geriatric hip protocol; SCDs/TEDs; Enoxaparin 40 mg SC daily - Pain control with Tylenol/Oxycodone/Morphine PRN - Orthopedics following - appreciate surgical management - PT/OT - anticipating [facility] for rehab - possibly over the weekend/Sunday pending Hgb trending Present on Admission?: Yes (2) Acute blood loss anemia: - Baseline likely around 11-12 with limited labs here to compare progressively reducing since admission - EBL almost 500 cc - likely surgical losses and dilutional - Hgb currently 7.7 and asymptomatic however with some lightheadedness yesterday when trying to ambulate. Discussed possibility of transfusion however patient is nervous about this and would like to trend Hgb - she does not carry a cardiac history and is asymptomatic (minus lightheadedness yesterday which could be multifactorial). Hgb still at 7.7 on redraw and will monitor - given no cardiac history and stability there is room for monitoring - will re-discuss transfusion if <7 or symptomatic Present on Admission?: Yes (3) Diabetes: - Well controlled given age with A1c of 7 - Hold Pioglitazone/Metformin and cover with SSI - can resume home meds on D/C Present on Admission?: Yes Subjective Reports feeling well today and pain largely controlled with Tylenol. She is eager to ambulate today as she had lightheadedness yesterday. Hemoglobin still reduced and repeat x 2 at 7.7. Discussed blood transfusion in setting of lightheadedness yesterday with ambulation. She is nervous about an infusion and would like to trend her counts first. She does not carry a cardiac history and is currently asymptomatic. This is likely losses due to EBL 500 cc and dilution. Her baseline appears to likely be 11-12 but does not appear acute decompensated from this change in counts. Therapy was held to prevent lightheadedness. Could ambulate if she feels well. BP controlled and no CP/SOB. Review of Systems Constitutional: no fever and no chills Respiratory: no cough and no dyspnea Cardiovascular: no chest pain, no palpitations, no lightheadedness and no syncope Gastrointestinal: no abdominal pain, no nausea, no vomiting, no constipation and no diarrhea/loose stools Genitourinary: no dysuria Musculoskeletal: + joint pain (mild in R hip) Physical Exam Constitutional: well developed and well nourished; no acute distress and not ill appearing Eyes: + anicteric sclerae ENMT: Ears: no hearing impairment Neck: normal visual inspection and trachea midline Respiratory: normal respiratory effort, lungs clear to auscultation Cardiovascular: RRR, no murmur, no edema Gastrointestinal (Abdomen): Inspection/Auscultation: normal bowel sounds; abdomen not distended Percussion/Palpation: abdomen soft; abdomen nontender Musculoskeletal: Head/Neck/Chest: normocephalic, head atraumatic and neck supple Extremities: no cyanosis and no clubbing surgical dressings in place C/D/I (did not remove) no surrounding erythema/drainage/warmth Skin: no rashes, warm and dry Neurologic: moves all extremities Psychiatric: A+Ox3, euthymic affect Results & Data Vital Signs (Past 12 Hours) Vital Signs Temp Pulse Resp BP Pulse Ox Pulse Ox 10/04/18 11:39 37.1 C 82 20 122/75 93 10/04/18 07:14 37.6 C H 86 18 150/76 H 91 10/04/18 04:00 95 10/04/18 03:08 37.6 C H 95 H 14 132/75 92 (1) Closed fracture of right hip Encounter type: initial encounter Qualified Code(s): S72.001A - Fracture of unspecified part of neck of right femur, initial encounter for closed fracture
[2018-10-04 18:27] LABS: Hematocrit (blood only) 24.7 % (37-47); Hemoglobin 8.3 g/dL (12.0-16.0)
[2018-10-04] MEDS: DOCUSATE SODIUM/SENNA 50/8.6MG TAB PO SCH (20:16)
[2018-10-04] MEDS: SENNA 8.6 MG TAB PO SCH (20:16)
--- NOTE | 2018-10-05 07:19 | Orthopedic Progress Note ---
Date of Service October 05, 2018 Assessment & Plan (1) Closed comminuted intertrochanteric fracture of right femur: POD #3 s/p open reduction internal fixation, right hip, cephalomedullary nail and cables -DVT ppx - lovenox 40 q daily -TTWB RLE -PT/OT when medically stable Plan for SNF/Rehab- awaiting for patient to do PT was on hold yesterday due to low H/H, will reattempt today, transfer to [facility] pending. orthopedically stable for transfer when stable medically. Subjective POD 3 s/p Left TFN/cabling of femur fx. Pt currently sitting up in bed awake and alert. No complaints currently. with her in the room, no major concerns. States pain is controlled presently, she states currently only using Tylenol. Denies SOB, CP, LH. Review of Systems Constitutional: no fever and no chills Respiratory: no cough and no dyspnea Cardiovascular: no chest pain and no dyspnea Physical Exam Physical Exam: Vital Signs Temp Pulse Resp BP Pulse Ox 10/05/18 00:00 37.2 C 10/04/18 23:07 37.8 C H 87 14 135/72 94 10/04/18 15:03 37.1 C 82 17 136/71 94 10/04/18 11:39 37.1 C 82 20 122/75 93 Intake and Output 10/04/18 10/05/18 10/05/18 22:59 06:59 14:59 Intake Total 340 / 1150 Output Total 1700 / 4575 1525 / 4575 Balance -1360 / -3425 -1525 / -3425 Intake: IV 100 / 200 OFIRMEV 1,000 mg In 100 ml @ 100 / 200 400 mls/hr IV Q8H PRN Rx#: [id number] Oral 240 / 950 Output: Urine Amount (Ca theter) 1700 / 4575 1525 / 4575 Bernardo/Indwelli ng 1700 / 4575 1525 / 4575 Constitutional: WD/WN, vitals as above no acute distress Musculoskeletal: Right Leg: Dressings C/D/I. thigh soft, some tenderness noted. Calves are soft, NT. NV intact. Toes mobile. Results & Data Vital Signs (Past 12 Hours) Vital Signs Temp Pulse Resp BP Pulse Ox 10/05/18 00:00 37.2 C 10/04/18 23:07 37.8 C H 87 14 135/72 94 Laboratory Results Laboratory Results WBC 8.69 K/uL (4.8-10.8) 10/04/18 05:48 RBC 2.84 M/uL (4.2-5.4) L 10/04/18 05:48 Hgb 8.3 g/dL (12.0-16.0) L 10/04/18 18:18 Hct 24.7 % (37-47) L 10/04/18 18:18 MCV 84.9 fL (80-100) 10/04/18 05:48 MCH 28.9 pg (25-34) 10/04/18 05:48 MCHC 34.0 g/dL (32-36) 10/04/18 05:48 RDW Std Deviation 41.3 fL (36.4-46.3) 10/04/18 05:48 RDW Coeff of Mary 13.3 % (11.5-14.5) 10/04/18 05:48 Plt Count 142 K/uL (130-400) 10/04/18 05:48 MPV 10.2 fL (7.4-10.4) 10/04/18 05:48 Immature Gran % (Auto) 0.5 % 10/04/18 05:48 Neut % (Auto) 57.6 % 10/04/18 05:48 Lymph % (Auto) 23.2 % 10/04/18 05:48 [place] % (Auto) 16.2 % 10/04/18 05:48 Eos % (Auto) 2.2 % 10/04/18 05:48 Baso % (Auto) 0.3 % 10/04/18 05:48 Immature Gran # (Auto) 0.04 K/uL (0.00-0.02) H 10/04/18 05:48 Neut # (Auto) 5.00 K/uL (1.4-6.5) 10/04/18 05:48 Lymph # (Auto) 2.02 K/uL (1.2-3.4) 10/04/18 05:48 [place] # (Auto) 1.41 K/uL (0.11-0.59) H 10/04/18 05:48 Eos # (Auto) 0.19 K/uL (0-0.5) 10/04/18 05:48 Baso # (Auto) 0.03 K/uL (0-0.2) 10/04/18 05:48 PT 10.7 Seconds (9.0-12.0) 10/01/18 15:53 INR 1.0 (0.9-1.1) 10/01/18 15:53 APTT 27.5 Seconds (21.0-31.0) 10/01/18 15:53 PTT Ratio 1.0 10/01/18 15:53 Sodium 134 mmol/L (136-145) L 10/04/18 05:48 Potassium 4.3 mmol/L (3.5-5.1) 10/04/18 05:48 Chloride 103 mmol/L (98-107) 10/04/18 05:48 Carbon Dioxide 27 mmol/L (21-32) 10/04/18 05:48 Anion Gap 4.0 (3-11) 10/04/18 05:48 BUN 29 mg/dl (7-18) H 10/04/18 05:48 Creatinine 0.97 mg/dl (0.6-1.2) 10/04/18 05:48 Est Cr Clr Drug Dosing 54.4 ml/min 10/04/18 05:48 Est GFR ( Amer) 66.7 10/04/18 05:48 Est GFR (Non-Af Amer) 57.5 10/04/18 05:48 BUN/Creatinine Ratio 29.5 (10-20) H 10/04/18 05:48 Glucose 156 mg/dl (70-99) H 10/04/18 05:48 POC Glucose 200 (70-99) H 10/04/18 20:52 Estimat Average Glucose 154 mg/dl 10/02/18 06:39 Hemoglobin A1c 7.0 % (4.5-5.6) H 10/02/18 06:39 Calcium 8.6 mg/dl (8.5-10.1) 10/04/18 05:48 Urine Color Yellow 10/01/18 17:15 Urine Appearance Clear (Clear) 10/01/18 17:15 Urine pH 7.0 (4.5-7.5) 10/01/18 17:15 Ur Specific Van 1.014 (1.000-1.030) 10/01/18 17:15 Urine Protein Negative (Negative) 10/01/18 17:15 Urine Glucose (UA) Negative (Negative) 10/01/18 17:15 Urine Ketones Trace (Negative) H 10/01/18 17:15 Urine Blood Negative (Negative) 10/01/18 17:15 Urine Nitrite Negative (Negative) 10/01/18 17:15 Urine Bilirubin Negative (Negative) 10/01/18 17:15 Urine Urobilinogen Negative (Negative) 10/01/18 17:15 Ur Leukocyte Esterase Negative (Negative) 10/01/18 17:15 Hepatitis C Ab Screen Neg (Neg) 10/02/18 06:39 Blood Type O Positive 10/01/18 19:52 Antibody Screen NEGATIVE 10/01/18 19:52 Diagnostic Findings XR femur RT 2V routine HISTORY: 73 years-old Female post op, in pacu acute right hip fracture COMPARISON: Pelvis right hip radiographs 10/01/2018 TECHNIQUE: 2 views of the right femur FINDINGS: Status post placement of intertrochanteric male with elongated medullary britney fixating the previously described acute comminuted fracture of the proximal right femur. 11 mm lateral displacement about the greater trochanter with several millimeters superior displacement about the lesser trochanter. Alignment is otherwise near-anatomic. There are 2 proximal cerclage wires with 2 distal cannulated screws. No new acute fracture identified. Lateral skin iris with expected postsurgical soft tissue swelling and deep tissue air. No retained foreign body identified. Changes about the knee and hip. IMPRESSION: Improved alignment status post placement of an intratrochanteric nail with medullary britney as above.
[2018-10-05] MEDS: ACETAMINOPHEN 1,000 MG/100 ML VIAL IV PRN (08:17)
[2018-10-05] MEDS: OMEGA-3 (PURIFIED FISH OIL) 1 GM CAP PO SCH ×2 (08:34→21:38)
[2018-10-05] MEDS: ASCORBIC ACID 500 MG TAB PO SCH (08:34)
[2018-10-05] MEDS: CALCIUM 600MG + VIT D 400 IU TAB PO SCH (08:34)
[2018-10-05] MEDS: ENOXAPARIN INJ 40 MG/0.4 ML SYR SQ SCH (08:34)
[2018-10-05 08:50] LABS: Basophils # (auto) 0.01 K/uL (0-0.2); Basophils % (auto) 0.1 %; Eosinophils % (auto) 2.3 %; Hematocrit (blood only) 23.6 % (37-47); Hemoglobin 7.9 g/dL (12.0-16.0); Immature Granulocytes # (auto) 0.09 K/uL (0.00-0.02); Lymphocytes # (auto) 1.43 K/uL (1.2-3.4); Lymphocytes % (auto) 16.6 %; Mean Corpuscular Hgb Conc 33.5 g/dL (32-36); Mean Corpuscular Volume 85.8 fL (80-100); Mean Platelet Volume 10.6 fL (7.4-10.4); Monocytes # (auto) 1.05 K/uL (0.11-0.59); Monocytes % (auto) 12.2 %; Neutrophils # (auto) 5.85 K/uL (1.4-6.5); Neutrophils % (auto) 67.8 %; Platelet Count 167 K/uL (130-400); RDW Coefficient of Variation 13.3 % (11.5-14.5); RDW Standard Deviation 41.8 fL (36.4-46.3); Red Blood Count 2.75 M/uL (4.2-5.4); White Blood Count 8.63 K/uL (4.8-10.8)
[2018-10-05 09:17] LABS: RBC Morphology Unremarkable
[2018-10-05 09:18] LABS: Calcium 8.8 mg/dl (8.5-10.1); Creatinine Clr Calc Pharmacy 66.8 ml/min; Est GFR (African American) 85.5; Est GFR (Non-African American) 73.7; Potassium 4.3 mmol/L (3.5-5.1)
[2018-10-05] MEDS: INSULIN ASPART 100 UNITS/ML 3 ML PEN SC SCH ×4 (09:40→21:44)
--- NOTE | 2018-10-05 10:06 | Operative Report ---
Post Operative Report Pre & Post Diagnosis Operation Date: 10/02/18 09:10 Pre-Op Diagnosis: RIGHT FEMUR FRACTURE Post-Op Diagnosis: RIGHT FEMUR FRACTURE Procedure Operation Date: 10/02/18 09:10 Actual Procedures p Right Long Trochanteric Nail(Right) - Christopher Jolly DO Surgeon Christopher Jolly DO Diagnostics Tech none Estimated Blood Loss 475 Findings Consistent with Post-Op Diagnosis Specimens none Drains none Anesthesia Type General Complications none Disposition Disposition: Recovery Room Indications The patient is a 73 yo female with displaced comminuted unstable right intertrochanteric hip fracture with extension into subtrochanteric/proximal femur region sustained after a fall from standing height. The patient was medically stabilized on 10/02/18. I indicated the patient for closed vs open re duction internal fixation right hip with cephalomedullary nail and cables. The patient and family was informed of the risks and benefits of surgery, which include but not limited to infection, bleeding, blood clots, damage to nerves, vessels, bone and soft tissue, dislocation, leg length discrepancy, malunion, nonunion, failure of the implants, need for additional surgery and . The patient and family collectively chose to proceed with surgical intervention and informed consent was obtained. Description of Procedure Following induction of adequate general anesthesia, the patient was placed on the fracture table. The left leg was placed in the well leg suarez and the right leg in the traction leg suarez. All bony prominences were protected. Utilizing c-arm fluoroscopy closed reduction of the fracture was attempted utilizing tension and internal/external rotation. There was residual displacement of the subtrochanteric component. We decided to proceed with open reduction at this time. The hip and thigh was prepped and draped in the usual sterile manner. A time out was performed, the patient identified and site ashleigh confirmed. Utilizing c-arm fluoroscopy, a lateral incision was made sharply at the level of the subtrochanteric fracture and carried down through superficial soft tissue. Electrocautery was used for hemostasis. Dissection was carried down through deep fascial and the deep muscles were mobilized anteriorly until direct visualization was obtained of the fracture site. The fracture site was cleared of blood clot and soft tissue and utilizing gentle traction, internal/external rotation of the leg suarez, anatomic reduction was achieved. The fracture was held with Lohmann clamp. Next, two synthesis cerclage wires were placed around the fracture site and Lohmann clamp released. Reduction of the fracture was once more confirmed with c-arm fluoroscopy. Next, we turned our attention to the unstable IT fracture. Utilizing a combination of traction, adduction, internal/external rotation, the fracture was closed reduced. A incision was made from the tip of the greater trochanter proximally. Subcutaneous tissue was sharply dissected to the tip of the greater trochanter, electrocautery used for hemostasis. Under fluoroscopic guidance the drill tipped guidewire was inserted at the tip of the greater trochanter and advanced into the intramedullary canal. Utilizing the intramedullary drill the guidewire was overdrilled with tissue protector attached. All instruments were removed. Next a long ball-tipped guidewire was passed through the proximal opening intramedullary beyond the fracture site to the proximal pole of the patella. Guidewire position was confirmed utilizing C-arm fluoroscopy. Guidewire was measured at this time to determine length of the nail at 360 mm. An x-ray approximately was performed to verify ruler was found to bone. Next utilizing flexible reamers sequential reaming was performed in .5mm increments, a final 12.5 mm reamer was passed the length of the canal. Care was taken to protect soft tissue proximally. A 11 by 360 mm long Synthes TFN was inserted and impacted into position and confirmed by c-arm fluoroscopy. Next the aiming arm was attached to the insertion handle. A incision was made and carried down through subcutaneous tissues to bone. The blade guide sleeve was inserted and secured down to bone. The guide wire was passed across the fracture site to the tip of the femoral head, position was confirmed in the AP and lateral planes utilizing c-arm fluoroscopy. The guide pin was measured and the 11.0mm drill bit passed over the guide pin to open lateral cortex followed by a 6.0mm/10.0mm cannulated reamer to a depth of 90 mm. Next the helical blade was inserted and locked proximally. Next position the C arm in anticipation for perfect [place] technique, care was taken to insure sterilility was maintained. Distally a stab incision was made in the skin and carried down to bone. Utilizing the radiolucent drill with a 4.0mm drill bit, both cortices were drilled through the proximal static hole. The nail was locked distally using a single 4.9mm x 48 mm locking bolt. Next utilizing perfect [place] technique a distal stab incision was made overlying the dynamic hole. Blunt dissection was carried down to bone. Utilizing the radiolucent drill with a 4.0 mm drill bit both cortices were drilled through the distal aspect of the dynamic hole. A single 4.9 mm x 52 mm locking bolt was placed through the dynamic hole. The aiming guide was removed at this time and final radiographs were obtained utilizing c-arm fluoroscopy to confirm overall position and fracture reduction. Incisions were irrigated with copious amounts of sterile saline solution. Subcutaneous tissue were injected utilizing .5% marcaine solution. Deep closure was performed using #1 Vicryl followed by 2-0 Vicryl for subcutaneous tissues and iris in the skin. Sterile dressing, Xeroform gauze, 4x4s and tegaderm were applied. The patient tolerated the procedure well and was transported to the PACU in stable condition. I attest to the content of the Intraoperative Record and any orders documented therein. Any exceptions are noted below.
--- NOTE | 2018-10-05 14:12 | Hospitalist Progress Note ---
Date of Service October 05, 2018 Assessment & Plan (1) Closed fracture of right hip: - Mechanical fall resulting in a comminuted and moderately impacted intertrochanteric fx with involvement of the proximal femoral shaft - now S/P nailing - Geriatric hip protocol; SCDs/TEDs; Enoxaparin 40 mg SC daily - Pain control with Tylenol/Oxycodone/Morphine PRN - Orthopedics followed - cleared from their perspective for rehab - PT/OT - anticipating [facility] for rehab - possibly Sunday (2) Acute blood loss anemia: - Baseline likely around 11-12 and remaining stable but reduced - EBL almost 500 cc - likely surgical losses and dilutional - Hgb currently 7.9 and asymptomatic. Discussed possibility of transfusion however patient is nervous about this and would like to trend Hgb - she does not carry a cardiac history and is asymptomatic (minus lightheadedness 5/2 which could be multifactorial and some component of fear/anxiety) - CBC in AM (3) Diabetes: - Well controlled given age with A1c of 7 - Hold Pioglitazone/Metformin and cover with SSI - can resume home meds on D/C Subjective Reports feeling well today and pain improving. Discussed trying oral pain medication so we can better see what will work for her. Will order low dose Tramadol as well as an option because she doesn't want to feel sedated. Hgb at 7.9 but reports feeling well. Can mobilize and see how she is feeling. Is hesitant with blood transfusions but agrees if still symptomatic she may need a unit. Moving her bowels and tolerating diet without issue. Anticipating discharge to [facility] Review of Systems Constitutional: no fever and no chills Respiratory: no cough and no dyspnea Cardiovascular: no chest pain, no palpitations and no lightheadedness Gastrointestinal: no abdominal pain, no nausea, no vomiting, no constipation and no diarrhea/loose stools Genitourinary: no dysuria Musculoskeletal: + joint pain (hip - adequately controlled) Integumentary: + new lesions (blister from SCDs R knee fold) Physical Exam Constitutional: well developed and well nourished; no acute distress and not ill appearing Eyes: + anicteric sclerae ENMT: Ears: no hearing impairment Neck: normal visual inspection and trachea midline Respiratory: normal respiratory effort, lungs clear to auscultation Cardiovascular: RRR, no murmur, no edema Gastrointestinal (Abdomen): Inspection/Auscultation: normal bowel sounds; abdomen not distended Percussion/Palpation: abdomen soft; abdomen nontender Musculoskeletal: Head/Neck/Chest: normocephalic, head atraumatic and neck s upple Extremities: no cyanosis and no clubbing R hip dressing C/D/I; small dressing placed to R knee fold at area of blister from SCDs Skin: no rashes, warm and dry Neurologic: moves all extremities Psychiatric: A+Ox3, euthymic affect Results & Data Vital Signs (Past 12 Hours) Vital Signs Temp Pulse Resp BP Pulse Ox 10/05/18 12:26 37.3 C 84 17 144/63 H 95 10/05/18 07:50 37.3 C 86 17 154/78 H 90 (1) Closed fracture of right hip Encounter type: initial encounter Qualified Code(s): S72.001A - Fracture of unspecified part of neck of right femur, initial encounter for closed fracture
[2018-10-05] MEDS: TRAMADOL HCL 50 MG TABLET PO PRN (16:18)
[2018-10-05] MEDS: SENNA 8.6 MG TAB PO SCH (21:38)
[2018-10-05] MEDS: DOCUSATE SODIUM/SENNA 50/8.6MG TAB PO SCH (21:38)
[2018-10-06 07:04] LABS: Hematocrit (blood only) 22.2 % (37-47); Hemoglobin 7.6 g/dL (12.0-16.0); Mean Corpuscular Hgb Conc 34.2 g/dL (32-36); Mean Corpuscular Volume 85.4 fL (80-100); Mean Platelet Volume 10.6 fL (7.4-10.4); Platelet Count 205 K/uL (130-400); RDW Coefficient of Variation 13.2 % (11.5-14.5); RDW Standard Deviation 41.1 fL (36.4-46.3); White Blood Count 8.45 K/uL (4.8-10.8)
[2018-10-06] MEDS ORDERED: SODIUM CHLORIDE 0.9% 250 ML IV PRN (08:56)
[2018-10-06] MEDS: ASCORBIC ACID 500 MG TAB PO SCH (09:03)
[2018-10-06] MEDS: CALCIUM 600MG + VIT D 400 IU TAB PO SCH (09:03)
[2018-10-06] MEDS: ENOXAPARIN INJ 40 MG/0.4 ML SYR SQ SCH (09:03)
[2018-10-06] MEDS: OMEGA-3 (PURIFIED FISH OIL) 1 GM CAP PO SCH ×2 (09:03→20:45)
--- NOTE | 2018-10-06 09:03 | Hospitalist Progress Note ---
Date of Service October 06, 2018 Assessment & Plan (1) Closed fracture of right hip: - Mechanical fall resulting in a comminuted and moderately impacted intertrochanteric fx with involvement of the proximal femoral shaft - now S/P nailing on 10/02 - Geriatric hip protocol; SCDs/TEDs; Enoxaparin 40 mg SC daily - Pain control with Tylenol/Oxycodone/Morphine PRN - Orthopedics followed - cleared from their perspective for rehab - PT/OT - anticipating [facility] for rehab - possibly Sunday (2) Acute blood loss anemia: - Baseline likely around 11-12 and remaining stable but reduced and still sitting at 7.6 -- She was a code purple on 10/06 for syncope while sitting on the bedside commode - blood pressure acceptable and patient can recall events and did not sustain a fall - Transfuse 2 units PRBC and recheck Hgb this afternoon (3) Diabetes: - Well controlled given age with A1c of 7 - Hold Pioglitazone/Metformin and cover with SSI - can resume home meds on D/C Supervising Physician Co-Signing Physician Notes PA Supervision Note: I personally saw and examined the patient. I verified all mcgowan points and agree with DORA Ulloa with the following exceptions and/or additions: I went to the bedside for the Code Purple. Pt had syncope while sitting on the toilet to urinate. She reports feeling lightheaded prior to the event, no chest pain, no abd pain, no headache. She woke up immediately after being laid flat on the bed. Needs transfusion today Vitals reviewed NAD, AAOx3 RRR no mgr CTAB nowcr Ext: right hip with dressings in place, no erythema -Transfuse for acute blood loss anemia continue care for hip Subjective Around 0845 patient was a code purple. Patient was noted to be pale and diaphoretic while on bedside commode. She had a moment of slurred speech and not following commands. She slumped over and fainted. She was assisted back to bed. Upon arrival at bedside patient is laying in bed and conversant. Mentation is good and recalls the events leading up to the code. Discussed her hgb being at 7.6 today and discussed that a blood transfusion is needed. We have had multiple discussion about this over the past couple days but she has been nervous about a transfusion. She did consent to a transfusion and given her symptoms will transfuse 2 units. EKG reveals NSR without ischemic findings and similar to initial EKG She reports she is feeling better while laying in the bed. She is pale and denies SOB, CP, lightheadedness. Only complaint is skin irritation as it appears she may be dealing with some allergy to the tape adhesive. She reports her pain in the hip is controlled at this time. Review of Systems Constitutional: no fever and no chills Eyes: no worsening vision Respiratory: no cough and no dyspnea Cardiovascular: + lightheadedness and + syncope; no chest pain and no palpitations Gastrointestinal: no abdominal pain, no nausea, no vomiting, no constipation and no diarrhea/loose stools Genitourinary: no dysuria Musculoskeletal: no joint pain Integumentary: + rash (and irritation at locations of tape) Neurologic: + syncope; no headache(s) and no confusion Physical Exam Constitutional: well developed and well nourished; no acute distress and not ill appearing Eyes: PERRL and normal accommodation; sclerae not anicteric ENMT: Ears: no hearing impairment Neck: normal visual inspection and trachea midline Respiratory: normal respiratory effort, lungs clear to auscultation Cardiovascular: RRR, no murmur, no edema Gastrointestinal (Abdomen): Inspection/Auscultation: normal bowel sounds Percussion/Palpation: abdomen soft; abdomen nontender Musculoskeletal: Head/Neck/Chest: normocephalic, head atraumatic and neck supple multiple dressings applied to skin C/D/I; blistering near incision site likely correlating to adhesive tape areas Skin: no rashes, warm and dry (other than mentioned in MS system) Neurologic: moves all extremities and awake; no focal motor deficits Speech / Cognition: normal speech Psychiatric: A+Ox3, euthymic affect Cognition: recent memory grossly intact Results & Data Vital Signs (Past 12 Hours) Vital Signs Temp Pulse Resp BP Pulse Ox 10/06/18 08:51 100 10/06/18 08:50 81 170/85 H 88 L 10/06/18 08:40 78 157/79 H 100 10/06/18 06:53 37.4 C 88 18 150/73 H 92 10/05/18 23:10 37.6 C H 99 H 14 149/72 H 96 (1) Closed fracture of right hip Encounter type: initial encounter Qualified Code(s): S72.001A - Fracture of unspecified part of neck of right femur, initial encounter for closed fracture
[2018-10-06] MEDS: INSULIN ASPART 100 UNITS/ML 3 ML PEN SC SCH ×4 (10:07→21:47)
[2018-10-06 17:13] LABS: Hemoglobin 10.3 g/dL (12.0-16.0)
[2018-10-06] MEDS: DOCUSATE SODIUM/SENNA 50/8.6MG TAB PO SCH (20:45)
[2018-10-06] MEDS: SENNA 8.6 MG TAB PO SCH (20:45)
[2018-10-06] MEDS: TRAMADOL HCL 50 MG TABLET PO PRN (21:34)
[2018-10-07 06:41] LABS: Hematocrit (blood only) 29.1 % (37-47); Hemoglobin 9.9 g/dL (12.0-16.0); Mean Corpuscular Volume 85.8 fL (80-100); Mean Platelet Volume 10.2 fL (7.4-10.4); Nucleated RBC # (auto) 0.02 K/uL (0-0); Nucleated RBC % (auto) 0.2 %; Platelet Count 226 K/uL (130-400); RDW Coefficient of Variation 13.6 % (11.5-14.5); RDW Standard Deviation 42.6 fL (36.4-46.3); Red Blood Count 3.39 M/uL (4.2-5.4); White Blood Count 8.49 K/uL (4.8-10.8)
[2018-10-07] MEDS: INSULIN ASPART 100 UNITS/ML 3 ML PEN SC SCH ×4 (09:31→21:24)
[2018-10-07] MEDS: ENOXAPARIN INJ 40 MG/0.4 ML SYR SQ SCH (09:33)
[2018-10-07] MEDS: OMEGA-3 (PURIFIED FISH OIL) 1 GM CAP PO SCH ×2 (09:33→21:21)
[2018-10-07] MEDS: ASCORBIC ACID 500 MG TAB PO SCH (09:33)
[2018-10-07] MEDS: CALCIUM 600MG + VIT D 400 IU TAB PO SCH (09:33)
[2018-10-07] MEDS: TRAMADOL HCL 50 MG TABLET PO PRN (14:23)
--- NOTE | 2018-10-07 18:44 | Hospitalist Progress Note ---
Date of Service October 07, 2018 Assessment & Plan (1) Closed fracture of right hip: - Mechanical fall resulting in a comminuted and moderately impacted intertrochanteric fx with involvement of the proximal femoral shaft - now S/P nailing on 10/02 - Geriatric hip protocol; SCDs/TEDs; Enoxaparin 40 mg SC daily x 4 weeks - Pain control with Tylenol/Oxycodone/Morphine PRN - Orthopedics followed - cleared from their perspective for rehab - PT/OT - appreciate assessment - awaiting rehab approval (2) Acute blood loss anemia: - Baseline likely around 11-12 and currently at 9.9 after transfusion -- She was a code purple on 10/06 for syncope while sitting on the bedside commode - blood pressure acceptable and patient can recall events and did not sustain a fall - Transfused 2 units PRBC on 10/06 and will continue to trend Hgb (3) Diabetes: - Well controlled given age with A1c of 7 - Hold Pioglitazone/Metformin and cover with SSI - can resume home meds on D/C (4) DVT prophylaxis: - Lovenox Disposition: Await approval for rehab; discharge instructions completed pending approval Supervising Physician Co-Signing Physician Notes PA Supervision Note: I did not personally see or examine the patient today, but I verified all mcgowan points of DORA Ulloa's assessment and plan with the following exceptions/additions: None Subjective Reports feeling well today. No further lightheadedness/syncope. Reports pain is at tolerable level. Was sitting in bedside chair during my visit today. Verbalizes no complaints and eating well. Awaiting approval for rehab. Review of Systems Constitutional: no fever and no chills Respiratory: no cough and no dyspnea Cardiovascular: no chest pain, no palpitations and no lightheadedness Gastrointestinal: no abdominal pain, no nausea, no constipation and no diarrhea/loose stools Genitourinary: no dysuria Integumentary: + rash (irritation at locations of tape) Physical Exam Constitutional: well developed and well nourished; no acute distress and not ill appearing Eyes: PERRL and normal accommodation; sclerae not anicteric ENMT: Ears: no hearing impairment Neck: normal visual inspection and trachea midline Respiratory: normal respiratory effort, lungs clear to auscultation Cardiovascular: RRR, no murmur, no edema Gastrointestinal (Abdomen): Inspection/Auscultation: normal bowel sounds; abdomen not distended Percussion/Palpation: abdomen soft; abdomen nontender Musculoskeletal: Head/Neck/Chest: normocephalic, head atraumatic and neck supple Extremities: no cyanosis and no clubbing dressings applied over incision and blistering C/D/I - did not remove Skin: no rashes, warm and dry (other than mentioned in MS system) Neurologic: moves all extremities and awake; no focal motor deficits Speech / Cognition: normal speech Psychiatric: A+Ox3, euthymic affect Cognition: recent memory grossly intact Results & Data Vital Signs (Past 12 Hours) Vital Signs Temp Pulse Pulse Resp BP Pulse Ox 10/07/18 15:11 36.8 C 79 20 156/88 H 97 10/07/18 12:09 37.0 C 75 19 142/82 H 97 10/07/18 07:45 36.9 C 80 20 156/80 H 96 (1) Closed fracture of right hip Encounter type: initial encounter Qualified Code(s): S72.001A - Fracture of unspecified part of neck of right femur, initial encounter for closed fracture
[2018-10-07] MEDS: SENNA 8.6 MG TAB PO SCH (21:33)
[2018-10-07] MEDS: DOCUSATE SODIUM/SENNA 50/8.6MG TAB PO SCH (21:33)
[2018-10-08] MEDS: TRAMADOL HCL 50 MG TABLET PO PRN ×2 (08:04→20:51)
[2018-10-08 08:06] LABS: Hematocrit (blood only) 29.8 % (37-47); Hemoglobin 10.1 g/dL (12.0-16.0); Mean Corpuscular Hgb Conc 33.9 g/dL (32-36); Mean Corpuscular Volume 87.1 fL (80-100); Platelet Count 237 K/uL (130-400); RDW Coefficient of Variation 13.8 % (11.5-14.5); RDW Standard Deviation 43.8 fL (36.4-46.3); Red Blood Count 3.42 M/uL (4.2-5.4); White Blood Count 8.13 K/uL (4.8-10.8)
[2018-10-08 08:31] LABS: BUN Creatinine Ratio 32.3 (10-20); Calcium 8.9 mg/dl (8.5-10.1); Creatinine Clr Calc Pharmacy 62.9 ml/min; Est GFR (African American) 79.4; Est GFR (Non-African American) 68.5; Potassium 3.9 mmol/L (3.5-5.1)
[2018-10-08] MEDS: INSULIN ASPART 100 UNITS/ML 3 ML PEN SC SCH ×4 (08:54→21:04)
[2018-10-08] MEDS: CALCIUM 600MG + VIT D 400 IU TAB PO SCH (08:56)
[2018-10-08] MEDS: OMEGA-3 (PURIFIED FISH OIL) 1 GM CAP PO SCH ×2 (08:56→20:57)
[2018-10-08] MEDS: ASCORBIC ACID 500 MG TAB PO SCH (08:57)
[2018-10-08] MEDS: ENOXAPARIN INJ 40 MG/0.4 ML SYR SQ SCH (08:58)
--- NOTE | 2018-10-08 17:38 | Hospitalist Progress Note ---
Date of Service October 08, 2018 Assessment & Plan (1) Closed fracture of right hip: - Mechanical fall resulting in a comminuted and moderately impacted intertrochanteric fx with involvement of the proximal femoral shaft, s/p nailing on 10/02/18. - DVT ppx: Enoxaparin 40 mg subQ daily for 4 week course. - Pain control: Tylenol/Oxycodone/Morphine PRN - Orthopedics following, appreciate input. TTWB RLE as tolerated. - PT/OT - discharge to SNF pending placement. (2) Acute blood loss anemia: - Received 2 units pRBCs for hgb 7.6 on 10/06/18; H/H is now stable. - Monitor H/H daily. (3) Diabetes: - Hemoglobin A1C of 7. - Hold Pioglitazone/Metformin; SSI while inpatient. (4) CKD (chronic kidney disease) stage 2, GFR 60-89 ml/min: - Renally dose all meds. (5) DVT prophylaxis: - Lovenox subQ daily. Dispo: Discharge pending bed placement at SNF. Supervising Physician Co-Signing Physician Notes PA Supervision Note: I did not personally see or examine the patient today, but I verified all mcgowan points of DORA Choi's assessment and plan with the following exceptions/additions: None Subjective Pt. is doing well today. Denies pain, chest pain, SOB, N/V, constipation. Review of Systems Review of Systems: All systems reviewed & are unremarkable except as noted in HPI & below Constitutional: no fever, no chills, no fatigue, no weakness and no anorexia Respiratory: no cough, no dyspnea, no dyspnea on exertion and no wheezing Cardiovascular: no chest pain, no palpitations, no lightheadedness, no syncope and no edema Gastrointestinal: no abdominal pain, no nausea, no vomiting and no constipation Genitourinary: no difficulty urinating Musculoskeletal: no back pain and no joint pain Integumentary: no non-healing lesions Allergy / Immunological: no rash Physical Exam Physical Exam: General: Resting comfortably in no apparent distress; A&OX3 HEENT: NC/AT; PERRLA with EOMI; [place] conjunctiva, MMM. No erythema of posterior pharynx Neck: Supple and nontender Cardiac: RRR w/o murmurs, gallops or rubs Lungs: CTA bilaterally; No rhonchi, wheezing, or rales Abdomen: Bowel normoactive X 4; Nontender to palpation Extremities: Warm. No edema present Neuro: No focal weakness Skin: No rash Results & Data Vital Signs (Past 12 Hours) Vital Signs Temp Pulse Resp BP Pulse Ox 10/08/18 15:39 37.1 C 85 18 131/64 97 10/08/18 07:00 36.9 C 78 18 144/69 H 92 Laboratory Results 10/08/18 10/08/18 10/08/18 Range/Units 17:22 12:10 08:24 WBC (4.8-10.8) K/uL RBC (4.2-5.4) M/uL Hgb (12.0-16.0) g/dL Hct (37-47) % MCV (80-100) fL MCH (25-34) pg MCHC (32-36) g/dL RDW Std Deviation (36.4-46.3) fL RDW Coeff of Mary (11.5-14.5) % Plt Count (130-400) K/uL MPV (7.4-10.4) fL Sodium (136-145) mmol/L Potassium (3.5-5.1) mmol/L Chloride (98-107) mmol/L Carbon Dioxide (21-32) mmol/L Anion Gap (3-11) BUN (7-18) mg/dl Creatinine (0.6-1.2) mg/dl Est Cr Clr Drug Dosing ml/min Est GFR ( Amer) Est GFR (Non-Af Amer) BUN/Creatinine Ratio (10-20) Glucose (70-99) mg/dl POC Glucose 75 175 H 165 H (70-99) Calcium (8.5-10.1) mg/dl 10/08/18 10/08/18 10/07/18 Range/Units 07:42 07:42 20:59 WBC 8.13 (4.8-10.8) K/uL RBC 3.42 L (4.2-5.4) M/uL Hgb 10.1 L (12.0-16.0) g/dL Hct 29.8 L (37-47) % MCV 87.1 (80-100) fL MCH 29.5 (25-34) pg MCHC 33.9 (32-36) g/dL RDW Std Deviation 43.8 (36.4-46.3) fL RDW Coeff of Mary 13.8 (11.5-14.5) % Plt Count 237 (130-400) K/uL MPV 10.0 (7.4-10.4) fL Sodium 135 L (136-145) mmol/L Potassium 3.9 (3.5-5.1) mmol/L Chloride 99 (98-107) mmol/L Carbon Dioxide 29 (21-32) mmol/L Anion Gap 8.0 (3-11) BUN 27 H (7-18) mg/dl Creatinine 0.84 (0.6-1.2) mg/dl Est Cr Clr Drug Dosing 62.9 ml/min Est GFR ( Amer) 79.4 Est GFR (Non-Af Amer) 68.5 BUN/Creatinine Ratio 32.3 H (10-20) Glucose 161 H (70-99) mg/dl POC Glucose 152 H (70-99) Calcium 8.9 (8.5-10.1) mg/dl 10/07/18 Range/Units 17:55 WBC (4.8-10.8) K/uL RBC (4.2-5.4) M/uL Hgb (12.0-16.0) g/dL Hct (37-47) % MCV (80-100) fL MCH (25-34) pg MCHC (32-36) g/dL RDW Std Deviation (36.4-46.3) fL RDW Coeff of Mary (11.5-14.5) % Plt Count (130-400) K/uL MPV (7.4-10.4) fL Sodium (136-145) mmol/L Potassium (3.5-5.1) mmol/L Chloride (98-107) mmol/L Carbon Dioxide (21-32) mmol/L Anion Gap (3-11) BUN (7-18) mg/dl Creatinine (0.6-1.2) mg/dl Est Cr Clr Drug Dosing ml/min Est GFR ( Amer) Est GFR (Non-Af Amer) BUN/Creatinine Ratio (10-20) Glucose (70-99) mg/dl POC Glucose 103 H (70-99) Calcium (8.5-10.1) mg/dl (1) Closed fracture of right hip Encounter type: initial encounter Qualified Code(s): S72.001A - Fracture of unspecified part of neck of right femur, initial encounter for closed fracture
[2018-10-08] MEDS: SENNA 8.6 MG TAB PO SCH (20:57)
[2018-10-08] MEDS: DOCUSATE SODIUM/SENNA 50/8.6MG TAB PO SCH (20:57)
[2018-10-09] MEDS: TRAMADOL HCL 50 MG TABLET PO PRN ×2 (02:50→13:32)
[2018-10-09 08:35] LABS: BUN Creatinine Ratio 31.6 (10-20); Calcium 9.1 mg/dl (8.5-10.1); Est GFR (Non-African American) 62.2; Magnesium 1.7 mg/dl (1.8-2.4); Potassium 4.2 mmol/L (3.5-5.1)
[2018-10-09] MEDS ORDERED: MAGNESIUM OXIDE 400 MG TAB PO ONE (08:52)
[2018-10-09] MEDS: OMEGA-3 (PURIFIED FISH OIL) 1 GM CAP PO SCH (09:13)
[2018-10-09] MEDS: CALCIUM 600MG + VIT D 400 IU TAB PO SCH (09:13)
[2018-10-09] MEDS: ENOXAPARIN INJ 40 MG/0.4 ML SYR SQ SCH (09:14)
[2018-10-09] MEDS: ASCORBIC ACID 500 MG TAB PO SCH (09:14)
[2018-10-09] MEDS: INSULIN ASPART 100 UNITS/ML 3 ML PEN SC SCH ×2 (09:16→13:18)
--- NOTE | 2018-10-09 17:42 | Discharge Summary ---
Date of Service October 09, 2018 Admission HPI Per Admitting Provider Patient is living with her family when they are building a home in the area they are new to the area. Patient fell in the kitchen landing on her right side sustaining a comminuted hip fracture. Patient has very little medical problems for her age of 73 only taking an oral medication to control her diabetes. Patient previously has had surgery having hysterectomy in the past with no problems with anesthesia Prior to today the patient had no chest pain or pressure or dyspnea she is bothered by arthritic complaints of back pain where she does usually sleep in a recliner but is not because of shortness of breath is because of focal back pain. She has no unusual bruising or bleeding she had no melena. In the emergency department her pain is controlled after being given morphine. She has no shortening or rotation although the x-ray is quite impressive Admission Exam Per Admitting Provider The patient appeared well nourished and normally developed. Vital signs as documented. Head exam is unremarkable. normocephalic, atraumatic Neck is without jugular venous distension, thyromegaly, or lymphadenopathy Lungs are clear to auscultation and percussion. Cardiac exam reveals Rhythm is regular. First and second heart sounds normal. Abdominal exam reveals normal bowel sounds, no masses, no organomegaly Extremities are nonedematous and both pedal pulses are present he has marked varicosities of lower extremities Neurologic exam is A&Ox3, no focal deficits, lower extremity strength cannot be tested due to fracture Psychologically seems neither anxious or depressed Skin is warm Dry without bruises marked varicosities are noted Principal Diagnosis Closed Right Hip Fracture Discharge Exam General: Resting comfortably in no apparent distress; A&OX3 HEENT: NC/AT; PERRLA with EOMI; [place] conjunctiva, MMM. No erythema of posterior pharynx Neck: Supple and nontender Cardiac: RRR w/o murmurs, gallops or rubs Lungs: CTA bilaterally; No rhonchi, wheezing, or rales Abdomen: Bowel normoactive X 4; Nontender to palpation Extremities: Warm. No edema present Neuro: No focal weakness Skin: No rash Discharge Data Allergies Allergy/AdvReac Type Severity Reaction Status Date / Time aspirin Allergy Intermediate CHEST Unverified 10/01/18 16:02 TIGHTNESS, BLURRED VISION adhesive tape Allergy Blister Verified 10/06/18 15:29 Latex, Natural Rubber Allergy Unknown Unverified 10/06/18 15:29 lemon Allergy Verified 10/07/18 10:54 Consultations 10/01/18 19:34 Consult Anesthesiology Routine Consult Case Management - Discharge Planning Routine Consult Case Management - Discharge Planning Routine Consult Orthopedic Surgery Routine 10/02/18 22:34 Consult Case Management - Discharge Planning Routine Procedures Performed Operation Date: 10/02/18 09:10 Actual Procedures p Right Long Trochanteric Nail(Right) - Christopher Jolly DO Ordered Studies 10/01/18 20:28 CT femur RT wo con Urgent Hip/Pelvis/Femur/CXR XR 10/02/18 17:00 FL fluoroscopy <1hr Routine FL hip RT 2-3V Routine Hospital Course (1) Closed fracture of right hip: Mechanical fall resulting in a comminuted and moderately impacted intertrochanteric fx with involvement of the proximal femoral shaft, s/p nailing on 10/02/18. Pain control: Tylenol/Oxycodone/Morphine PRN. Lovenox for DVT ppx. Will be TTWB RLE as tolerated. PT/OT -- discharged to [facility]. (2) Chest pain: Developed chest pain on 10/09/18. EKG was negative. Pain lasted for ~3 minutes then resolved. Was re-producible to palpation, likely musculoskeletal. No indication for cardiac work up. (3) Acute blood loss anemia: Received 2 units pRBCs for hgb 7.6 on 10/06/18; H/H is now stable. (4) Diabetes: Hemoglobin A1C of 7. Held Pioglitazone/Metformin; SSI while inpatient. (5) CKD (chronic kidney disease) stage 2, GFR 60-89 ml/min: Renally dosed all meds. (6) DVT prophylaxis: Lovenox subQ daily. Discharged to [facility] on 10/09/18. Total Time Total Time Spent Total Time Spent (In Minutes): >30 minutes Total Time Includes: Examination of the Patient, Discharge Planning, Medication Reconciliation, Communication With Other Providers and Other Discharge Plan Discharge Items Patient Disposition: Transfer Inpatient Rehab Fac Reason For Visit: RIGHT FEMUR FRACTURE Discharge Diagnosis: Right Femur Fracture s/p Nailing Condition: Good Discharge Goals: Decrease discomfort, Improve disease control and Increase independence Activity: As commented below Bathing: No limitations Weightbearing: Left weightbearing and Right toe touch Non-emergency contact: Primary Care Provider Call non-emergency contact if: you have any medication questions, your symptoms worsen, your pain is not controlled, your pain is worsening, your pain is unusual for you, your pain is concerning for you, you have a fever, your wound has increased redness, your wound has increased drainage and your wound pain has increased Follow-up/Referrals: PCP,NO [Primary Care Provider] - Diet: Carb Consistent or DM2 Addtl Provider Instructions: 1. Closed fracture of right hip: - Mechanical fall resulting in a comminuted and moderately impacted intertrochanteric fx with involvement of the proximal femoral shaft - s/p nailing on 10/02/18. - Toe touch weight bearing as tolerated on the right lower extremity. - Enoxaparin 40 mg SC daily x 4 week (End date: 10/30/18) - Continue Tylenol and Tramadol for pain control. - Please schedule a follow up with orthopedics in 2 weeks post operatively. 2. Acute blood loss anemia: - Did have an estimated blood loss of approx. 500 mL during surgery - Transfused 2 units pRBCS on 10/06/18 for hgb 7.6. Hemoglobin is now stable. - Recommend repeating CBC in 3-4 days to monitor H/H. 3. Diabetes: - Hemoglobin A1C was 7.7 - Continue Pioglitazone/Metformin as prescribed. [facility] DISCHARGE INSTRUCTIONS: HIP/FEMUR FRACTURE SELF CARE INSTRUCTIONS: A. You are to ambulate with a walker or crutches for approximately 6 weeks. B. You are TOE TOUCH WEIGHT BEARING on your operative lower extremity for at least 6 weeks. C. Wear low heeled shoes with non-slip soles D. Be sure that your floors are free of things that could trip you throw rugs, electrical cords, and small objects. Avoid wet and waxed floors, especially with crutches/walker/cane. E. Try to walk several times a day with rest periods between. F. You may shower 48 hours after surgery and get the incision area wet, but DO NOT soak or submerge incision area in water. (No baths, swimming pools, hot tubs) G. CHANGE DRESSING DAILY. KEEP WOUND COVERED WITH A DRESSING UNTIL SEEN BACK IN THE OFFICE BY YOUR SURGEON. H. Do NOT apply soap or any ointment/lotions directly over incision. I. You may use ice as needed to operative site. SPECIAL CARE INSTRUCTIONS: VERY IMPORTANT TO READ AND REVIEW A. You may be at risk for phlebitis or blood clots. a. Wear surgical stockings (ABBEY hose) for 2 weeks after surgery to improve circulation and reduce swelling. b. Take LOVENOX 40mg SQ daily for 4 weeks or as directed. This is your blood thinner. B. There are a few signs you need to watch for after you are home. Call [facility] at [phone] if you experience any of the following: a. If you have a temperature of 101 degrees or higher. b. Sudden increase in pain in your hip not relieved by rest or pain medication. c. Any fluid or drainage from the incision; redness of the incision. d. Shortness of breath or chest pain. C. Call your physician if: a. Temperature is greater than 101 degrees (F). b. Pain is not relieved by prescribed pain medications. c. Increase drainage or redness from incision. d. Unanswered questions or concerns. D. Pain Medication: a. You will be prescribed pain medication upon discharge that should last till your first post-operative appointment. b. If you experience nausea and/or skin rash, discontinue this medication and contact our office for an alternative medication. c. Caution- narcotic pain medication can cause constipation. FOLLOW UP VISIT: Please call [facility] at [phone] to schedule a follow up appointment 10-14 days from the date of your surgery date. Prescriptions: New enoxaparin 40 mg/0.4 mL Syringe 40 mg subcut Q24H 28 Days Qty: 11.2 RF: 0 tramadol 50 mg Tablet 25 - 50 mg PO Q4H PRN (Reason: pain) 3 Days Qty: 18 RF: 0 Continued acetaminophen [Tylenol Extra Strength] 500 mg Tablet 1,000 mg PO Q6H PRN (Reason: Pain) RF: 0 ascorbic acid (vitamin C) [Vitamin C] 500 mg Tablet,Chewable 1,000 mg PO DAILY RF: 0 Calcium 600 + D(3) 600 mg calcium- 200 unit Capsule 1 cap PO DAILY RF: 0 pioglitazone-metformin [Actoplus MET] 15-500 mg tablet 1 tab PO BID RF: 0 [place]-3 350 mg-235 mg- 90 mg-597 mg Capsule,Delayed Release(Dr/Ec) 1 cap PO BID RF: 0 Stand-Alone Forms: My [facility] Discharge Orders: Discharge Order (Routine); Ordered 10/09/18 Ordered By: Manda Choi Skilled Items Patient informed of condition?: Yes DNR: No Discharge Level of Care: Acute rehab Communicable Disease: No Discharge Prognosis: Stable Admission Data Admit Date/Time: 10/01/18 18:41 Attending Provider: Danya Hooks Admit Provider: Edward Navarrete Primary Care Provider: PCP,NO Other Providers: Tyler Stewart ; Tyler Olivia Service: Surgical Services Other Interventions: Discharge Summary Assessment (RN) Last Done: 10/09/18 17:19 Pending Studies at Discharge: No DC Date/Time DO NOT enter until pt leaves facility: 10/09/18 17:46 Supervising Physician Co-Signing Physician Notes PA Supervision Note: I personally saw and examined the patient. I verified all mcgowan points and agree with DORA Choi with the following exceptions and/or additions: Pt doing very well, no complaints, no further chest pain , no SOB, no nausea or lightheadedness Vitals reviewed obese, NAD, pleasant RRR no mgr CTAB no wcr Ext with mild edema right leg Stable for dc to rehab facility, continue Lovenox for DVT proph
== END 2018-10-09 17:46 | DRG 481 ==
LOC: ED 14:57 → 3N 18:41 → SUATTDRO 18:41 → 3N 18:56

== ENCOUNTER 2021-02-08 14:23 | Inpatient (IN) ==
--- NOTE | 2021-02-08 18:06 | Emergency Department Note ---
Impression & Plan Peptic ulcer disease, Right lateral abdominal pain, Acute duodenitis ED Provider Note INFORMANT: Patient and ED PROVIDER(S): Prosper Kinsey MD CHIEF COMPLAINT: Right-sided abdominal pain PLAN: Disposition: Admitted Condition: Good Outpatient prescription management: none Referral: None MEDICAL DECISION MAKING: Patient presented with acute right-sided abdominal pain. She was treated with Dilaudid and Zofran for symptom control and this helped. She had blood work and urinalysis performed. The patient's CBC, chemistry panel, LFTs and lipase were unremarkable. ECG was unremarkable. Urinalysis showed no clear signs of infection. CT imaging was performed and was very concerning for findings that appear to be consistent with peptic ulcer disease. Acute duodenitis noted. Radiology questioned pancreatitis although the patient's lipase is normal. Given the area of inflammation and tenderness on examination further management in the hospital was felt to be appropriate as the patient could be at risk for perforation. She was started on Pepcid and Protonix. She was given a second dose of Dilaudid and Zofran for symptom control. I discussed the findings with the patient and the and they were pleased with the treatment. They felt comfortable with the plan. Consultation was made with Dr. Martinez of the hospitalist service and patient was admitted for further management. Triage Nursing notes reviewed and agree them. Vital Signs: reviewed and remarkable for hypertension Differential diagnosis: Renal colic, UTI, appendicitis, diverticulitis, mesenteric ischemia, aortic pathology, infections, inflammatory bowel disease, PUD, biliary pathology, as well as other pathologies. Diagnostics interpreted by me: ECG: Twelve-lead ECG reveals normal sinus rhythm at 72 bpm. Left axis deviation. No ST elevation or depression. No PACs or PVCs. Cardiac Monitoring: Cardiac monitoring ordered by me: The patient was placed on continuous cardiac monitoring and observed. It revealed a normal sinus rhythm at 70 beats per minute without ectopy or evidence of dysrhythmia. Imaging studies: CT scan as noted above. Duodenitis/peptic ulcer disease. I refer you to the EMR for further details. HPI: The patient is a 75 year old female who presents to the Emergency Room with complaints of right abdominal pain. This started two weeks ago and is worsening. The patient also notes the following associated symptoms, back pain. The patient has took a tramadol relieving factors. Current pain is rated as 9/10. Pt denies LOC, headache, fevers, chills, diaphoresis, visual changes, neck pain, chest pain, breathing difficulties, nausea, vomiting, melena, hematochezia, urinary symptoms, numbness, weakness, lymphadenopathy, rash, or other complaints. ROS: See above HPI for pertinent positives & negatives. A total of 10 systems reviewed and were otherwise negative. PAST MEDICAL HISTORY:See Below , DM, lumbar fracture, kidney stones, arthritis PAST SURGICAL HISTORY:See Below, FAMILY HISTORY:See Below SOCIAL HISTORY:See Below, HOME MEDICATIONS:See Below ALLERGIES:See Below VITALS:See Below PHYSICAL EXAMINATION: GENERAL: Awake, alert, well-appearing, in no distress HENT: Normocephalic, atraumatic. Oropharynx unremarkable. EYES: Normal conjunctiva. Sclera non-icteric. NECK: Inspection normal. Non-tender. Supple. No nuchal rigidity. FROM. No masses. RESPIRATORY: Clear to auscultation. No wheezes. No rales. Normal respiratory effort. CARDIAC: Normal rate. Normal rhythm. No murmurs. No rubs. Extremities warm and well perfused. Pulses equal. No JVD. GI: Soft, non-distended. No tenderness to palpation. No rebound or guarding. No masses. RECTAL: Deferred. MUSCULOSKELETAL: Atraumatic. Chest examination reveals no tenderness. The back is symmetrical on inspection without obvious abnormality. There is right CVA tenderness to palpation. No joint edema. LOWER EXTREMITIES: Calves are equal size bilaterally and non-tender. No edema. No discoloration. NEURO: Normal sensorium. No sensory or motor deficits noted. SKIN: No rash or jaundice noted. Prosper Kinsey MD Past Med/Surg History Medical History Acute blood loss anemia Closed comminuted intertrochanteric fracture of right femur Diabetes Renal calculi Type II diabetes mellitus Surgical History Right femoral shaft fracture Family History Mother Cardiac disorder Stroke Diabetes Father Cardiac disorder Stroke Other Family history non-contributory Prostate cancer Denies family history of Ovarian cancer Myocardial infarction Breast cancer Colorectal cancer Social History (Updated 12/23/20 @ 14:37 by Zoraida Bush MA) Smoking Status: Never smoker Second Hand Exposure: No; Hx Alcohol Use: No Hx Substance Use: No Preferred Language: Tristanian Communication Ability: Effective Visual Impairment: No Limitations Hearing Ability: Normal Machine Hoop Maker Required: No Beliefs That Will Affect Care: None marital status: Current Living Situation: Spouse 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 Feels Safe at Home: Yes Childhood Exposure to Second-Hand Smoke: No Dental Care, Regularly: No Physical Activity Frequency: Daily Seatbelt Use: always Sunscreen Use: No Assistive Devices: Walker Allergies Allergies Allergy/AdvReac Type Severity Reaction Status Date / Time aspirin Allergy Intermediate CHEST Verified 02/08/21 18:39 TIGHTNESS, BLURRED VISION adhesive tape Allergy Blister Verified 02/08/21 18:39 Latex, Natural Rubber Allergy Unknown Verified 02/08/21 18:39 lemon Allergy Unknown Verified 02/08/21 18:39 cephalexin AdvReac Intermediate GI upset Verified 02/08/21 18:39 Opioids - Morphine Analogues AdvReac Unknown Gastrointestinal Verified 02/08/21 18:39 Upset ciprofloxacin AdvReac Gastrointestinal Verified 02/08/21 18:39 Upset Home Meds Home Medications Medication Instructions Recorded Confirmed ascorbic acid 125 mg-collagen, 1 cap PO DAILY 03/11/20 02/08/21 hydrolyzed 740 mg capsule (Collagen Plus Vitamin C) cholecalciferol (vitamin D3) 25 1,000 mcg PO DAILY 03/11/20 02/08/21 mcg (1,000 unit) tablet (Vitamin D3) simethicone 125 mg chewable tablet 125 mg PO TID PRN 02/08/21 02/08/21 (Gas-X Extra Strength) tramadol 50 mg tablet 50 mg PO Q8H PRN 02/08/21 02/08/21 Previous Rx's Medication Instructions Recorded wheelchair #1 ea 12/26/18 pioglitazone 15 mg-metformin 500 1 tab PO BIDM #60 tab 10/12/20 mg tablet (Actoplus MET) Results & Data (ED) Vital Signs Vital Signs - 24 hr 02/08/21 14:59 02/08/21 17:51 02/08/21 18:30 Temperature 36.9 C Temperature Source Temporal Artery Scan Pulse Rate 74 73 72 Pulse Rate from SpO2 Sensor 73 Pulse Rhythm Regular Respiratory Rate 19 13 Respiratory Effort / Characteristics Non-Labored Respiratory Depth Normal Respiratory Pattern Regular Blood Pressure 167/90 H 172/83 H Blood Pressure Mean 115 112 Pulse Oximetry 98 98 100 Oxygen Delivery Method Room Air Room Air Sepsis Recent Fever Within 48 Hours No Sepsis New/Unexplained Change in Mental Status N/A Sepsis Action Taken by Nursing No Action Required 02/08/21 19:01 02/08/21 19:30 02/08/21 20:00 Temperature Temperature Source Pulse Rate 66 66 68 Pulse Rate from SpO2 Sensor 66 66 69 Pulse Rhythm Respiratory Rate 13 14 16 Respiratory Effort / Characteristics Respiratory Depth Respiratory Pattern Blood Pressure 166/89 H 159/68 H 161/73 H Blood Pressure Mean 114 98 102 Pulse Oximetry 100 94 94 Oxygen Delivery Method Sepsis Recent Fever Within 48 Hours Sepsis New/Unexplained Change in Mental Status Sepsis Action Taken by Nursing 02/08/21 20:30 Temperature Temperature Source Pulse Rate 72 Pulse Rate from SpO2 Sensor 72 Pulse Rhythm Respiratory Rate 14 Respiratory Effort / Characteristics Respiratory Depth Respiratory Pattern Blood Pressure 199/82 H Blood Pressure Mean 121 Pulse Oximetry 99 Oxygen Delivery Method Sepsis Recent Fever Within 48 Hours Sepsis New/Unexplained Change in Mental Status Sepsis Action Taken by Nursing Laboratory Data Result diagrams: 02/08/21 17:56 02/08/21 17:56 Lab Results 02/08/21 02/08/21 02/08/21 Range/Units 17:56 17:56 17:56 WBC 7.78 (4.8-10.8) K/uL RBC 4.41 (4.2-5.4) M/uL Hgb 13.1 (12.0-16.0) g/dL Hct 38.7 (37-47) % MCV 87.8 (80-100) fL MCH 29.7 (25-34) pg MCHC 33.9 (32-36) g/dL RDW Std Deviation 42.5 (36.4-46.3) fL RDW Coeff of Mary 13.2 (11.5-14.5) % Plt Count 206 (130-400) K/uL MPV 11.7 H (7.4-10.4) fL Immature Gran % (Auto) 0.4 % Neut % (Auto) 58.5 % Lymph % (Auto) 27.4 % [place] % (Auto) 11.1 % Eos % (Auto) 2.3 % Baso % (Auto) 0.3 % Neut # (Auto) 4.56 (1.4-6.5) K/uL Lymph # (Auto) 2.13 (1.2-3.4) K/uL [place] # (Auto) 0.86 H (0.11-0.59) K/uL Eos # (Auto) 0.18 (0-0.5) K/uL Baso # (Auto) 0.02 (0-0.2) K/uL Immature Gran # (Auto) 0.03 H (0.00-0.02) K/uL Sodium 133 L (136-145) mmol/L Potassium 4.5 (3.5-5.1) mmol/L Chloride 100 (98-107) mmol/L Carbon Dioxide 30 (21-32) mmol/L Anion Gap 3.0 (3-11) BUN 24 H (7-18) mg/dl Creatinine 0.98 (0.6-1.2) mg/dl Est Cr Clr Drug Dosing 49.3 ml/min Est GFR ( Amer) 64.9 ml/min Est GFR (Non-Af Amer) 56.0 ml/min BUN/Creatinine Ratio 24.3 H (10-20) Glucose 125 H (70-99) mg/dl Lactate 0.7 (0.4-2.0) mmol/L Calcium 9.5 (8.5-10.1) mg/dl Total Bilirubin 0.5 (0.2-1) mg/dl AST 19 (15-37) U/L ALT 18 (12-78) U/L Alkaline Phosphatase 87 (45-117) U/L Total Protein 8.0 (6.4-8.2) gm/dl Albumin 3.5 (3.4-5.0) gm/dl Globulin 4.5 H (2.5-4.0) gm/dl Albumin/Globulin Ratio 0.8 L (0.9-2) Lipase 219 (73-393) U/L Specimen Hemolysis Urine Color Urine Appearance (Clear) Urine pH (4.5-7.5) Ur Specific [place] (1.000-1.030) Urine Protein (Negative) Urine Glucose (UA) (Negative) Urine Ketones (Negative) Urine Blood (Negative) Urine Nitrite (Negative) Urine Bilirubin (Negative) Urine Urobilinogen (Negative) Ur Leukocyte Esterase (Negative) Urine WBC (Auto) (0-5) /hpf Urine RBC (Auto) (0-4) /hpf U Hyaline Cast (Auto) (0-5) /lpf U Epithel Cells (Auto) (0-5) /lpf Urine Bacteria (Auto) (Negative) COVID-19 Eval Order 02/08/21 02/08/21 Range/Units 18:30 20:54 WBC (4.8-10.8) K/uL RBC (4.2-5.4) M/uL Hgb (12.0-16.0) g/dL Hct (37-47) % MCV (80-100) fL MCH (25-34) pg MCHC (32-36) g/dL RDW Std Deviation (36.4-46.3) fL RDW Coeff of Mary (11.5-14.5) % Plt Count (130-400) K/uL MPV (7.4-10.4) fL Immature Gran % (Auto) % Neut % (Auto) % Lymph % (Auto) % [place] % (Auto) % Eos % (Auto) % Baso % (Auto) % Neut # (Auto) (1.4-6.5) K/uL Lymph # (Auto) (1.2-3.4) K/uL [place] # (Auto) (0.11-0.59) K/uL Eos # (Auto) (0-0.5) K/uL Baso # (Auto) (0-0.2) K/uL Immature Gran # (Auto) (0.00-0.02) K/uL Sodium (136-145) mmol/L Potassium (3.5-5.1) mmol/L Chloride (98-107) mmol/L Carbon Dioxide (21-32) mmol/L Anion Gap (3-11) BUN (7-18) mg/dl Creatinine (0.6-1.2) mg/dl Est Cr Clr Drug Dosing ml/min Est GFR ( Amer) ml/min Est GFR (Non-Af Amer) ml/min BUN/Creatinine Ratio (10-20) Glucose (70-99) mg/dl Lactate (0.4-2.0) mmol/L Calcium (8.5-10.1) mg/dl Total Bilirubin (0.2-1) mg/dl AST (15-37) U/L ALT (12-78) U/L Alkaline Phosphatase (45-117) U/L Total Protein (6.4-8.2) gm/dl Albumin (3.4-5.0) gm/dl Globulin (2.5-4.0) gm/dl Albumin/Globulin Ratio (0.9-2) Lipase (73-393) U/L Specimen Hemolysis Urine Color Yellow Urine Appearance Clear (Clear) Urine pH 7.0 (4.5-7.5) Ur Specific [place] 1.004 (1.000-1.030) Urine Protein Negative (Negative) Urine Glucose (UA) Negative (Negative) Urine Ketones Negative (Negative) Urine Blood Trace H (Negative) Urine Nitrite Negative (Negative) Urine Bilirubin Negative (Negative) Urine Urobilinogen Negative (Negative) Ur Leukocyte Esterase 1+ H (Negative) Urine WBC (Auto) 10-30 H (0-5) /hpf Urine RBC (Auto) 0-4 (0-4) /hpf U Hyaline Cast (Auto) 0 (0-5) /lpf U Epithel Cells (Auto) 5-10 H (0-5) /lpf Urine Bacteria (Auto) Negative (Negative) COVID-19 Eval Order Covid19 at [facility] Administered Medications Hydromorphone HCl (Hydromorphone Inj 0.5 Mg/0.5 Ml Syr) 0.5 mg IV Q15M PRN PRN Reason: Pain Stop: 02/22/21 20:19 Last Admin: 02/08/21 20:47 Dose: 0.5 mg Documented by: [id number] Pantoprazole Sodium 40 mg/ (Dextrose) 100 mls @ 20 mls/hr IV Q5H LIANA Stop: 03/10/21 20:44 Last Admin: 02/08/21 21:13 Dose: 8 mg/hr, 20 mls/hr Documented by: [id number] Discontinued Medications Famotidine (Famotidine 20mg/5ml Iv Push) 20 mg IV ONE STA Stop: 02/08/21 20:20 Last Admin: 02/08/21 20:32 Dose: 20 mg Documented by: [id number] Hydromorphone HCl (Hydromorphone Inj 0.5 Mg/0.5 Ml Syr) 0.25 mg IV NOW STA Stop: 02/08/21 18:10 Last Admin: 02/08/21 18:49 Dose: 0.25 mg Documented by: [id number] Pantoprazole Sodium 80 mg/ (Dextrose) 120 mls @ 400 mls/hr IV NOW ONE Stop: 02/08/21 20:36 Last Infusion: 02/08/21 20:56 Dose: 400 mls/hr Documented by: [id number] Admin: 02/08/21 20:36 Dose: 400 mls/hr Documented by: [id number] Ondansetron HCl (Ondansetron Inj 2 Mg/Ml 2 Ml Vial) 4 mg IV NOW STA Stop: 02/08/21 18:10 Last Admin: 02/08/21 18:49 Dose: 4 mg Documented by: [id number] Ondansetron HCl (Ondansetron Inj 2 Mg/Ml 2 Ml Vial) 4 mg IV NOW STA Stop: 02/08/21 20:44 Last Admin: 02/08/21 20:48 Dose: 4 mg Documented by: [id number] Imaging Data Radiologist's Impression: Abdomen/Pelvis CT 02/08/21 17:36 CT OF THE ABDOMEN AND PELVIS WITHOUT CONTRAST CLINICAL HISTORY: Right-sided abdominal pain. COMPARISON STUDY: CT of the abdomen and pelvis March 11, 2020. TECHNIQUE: Axial images of the abdomen and pelvis were obtained without IV contrast. Images were reviewed in the axial, sagittal, and coronal planes. Automated exposure control was utilized for the study. A dose lowering technique was utilized adhering to the principles of ALARA. FINDINGS: Lung bases are unremarkable. No pneumatosis, free air or portal venous gas is present. Multiple bilateral renal calculi measure up to 7 mm. There is no hydronephrosis. There are no ureteral calculi. A gallstone within the gallbladder without evidence for cholecystitis. Note is made of wall thickening of the first portion of the duodenum with a probable 9 mm outpouching along the medial wall of the proximal duodenum. There is moderate adjacent infiltration. N o biliary or pancreatic ductal dilatation is present. There is no fluid collection. There is no evidence for a bowel obstruction. The appendix is normal. Right femoral internal fixation is incidentally noted. IMPRESSION: 1. Wall thickening of the proximal duodenum with adjacent infiltration. Apparent 9 mm outpouching along the medial wall of the first portion of the duodenum which may reflect an ulcer. The findings suggest peptic ulcer diseas e/duodenitis. Acute pancreatitis could appear similar although is considered less likely. No free air. 2. Cholelithiasis. No evidence for acute cholecystitis. 3. Bilateral nephrolithiasis. ACT 112: Negative or not required by law. Electronically signed by: Miky Go M.D. 02/08/2021 7:22 PM Discharge Plan Visit Data Chief Complaint: Pain (Generalized) Stated Complaint: ABDOMINAL PAIN, BACK PAIN, SIDE PAIN ED Provider: Prosper Kinsey Discharge Problem: Peptic ulcer disease, Right lateral abdominal pain, Acute duodenitis Forms Stand Alone Forms: [facility] Prescriptions Prescriptions: No Action (DME) wheelchair device See Dose Instructions .ROUTE .MEDSUPPLY Qty: 1 RF: 0 pioglitazone-metformin [Actoplus MET] 15-500 mg tablet 1 tab PO BIDM Qty: 60 RF: 5 Collagen Plus Vitamin C 125-740 mg Capsule 1 cap PO DAILY RF: 0 cholecalciferol (vitamin D3) [Vitamin D3] 25 mcg (1,000 unit) Tablet 1,000 mcg PO DAILY RF: 0 tramadol 50 mg Tablet 50 mg PO Q8H PRN (Reason: Pain) RF: 0 simethicone [Gas-X Extra Strength] 125 mg Tablet,Chewable 125 mg PO TID PRN (Reason: gas) RF: 0 Referrals Referrals: Jovanna Gonzalez CRNP [Primary Care Provider] -
[2021-02-08 18:08] LABS: Basophils # (auto) 0.02 K/uL (0-0.2); Basophils % (auto) 0.3 %; Eosinophils # (auto) 0.18 K/uL (0-0.5); Eosinophils % (auto) 2.3 %; Hematocrit (blood only) 38.7 % (37-47); Hemoglobin 13.1 g/dL (12.0-16.0); Immature Granulocytes # (auto) 0.03 K/uL (0.00-0.02); Immature Granulocytes % (auto) 0.4 %; Lymphocytes # (auto) 2.13 K/uL (1.2-3.4); Lymphocytes % (auto) 27.4 %; Mean Corpuscular Hemoglobin 29.7 pg (25-34); Mean Corpuscular Hgb Conc 33.9 g/dL (32-36); Mean Corpuscular Volume 87.8 fL (80-100); Mean Platelet Volume 11.7 fL (7.4-10.4); Monocytes # (auto) 0.86 K/uL (0.11-0.59); Monocytes % (auto) 11.1 %; Neutrophils # (auto) 4.56 K/uL (1.4-6.5); Neutrophils % (auto) 58.5 %; Platelet Count 206 K/uL (130-400); RDW Coefficient of Variation 13.2 % (11.5-14.5); RDW Standard Deviation 42.5 fL (36.4-46.3); Red Blood Count 4.41 M/uL (4.2-5.4); White Blood Count 7.78 K/uL (4.8-10.8)
[2021-02-08] MEDS ORDERED: HYDROmorphone INJ 0.5 MG/0.5 ML SYR IV STA (18:09)
[2021-02-08] MEDS ORDERED: ONDANSETRON INJ 2 MG/ML 2 ML VIAL IV STA ×2 (18:09→20:43)
[2021-02-08 18:35] LABS: Albumin Globulin Ratio 0.8 (0.9-2); Albumin Level 3.5 gm/dl (3.4-5.0); BUN Creatinine Ratio 24.3 (10-20); Bilirubin,Total 0.5 mg/dl (0.2-1); Calcium 9.5 mg/dl (8.5-10.1); Creatinine Clr Calc Pharmacy 49.3 ml/min; Est GFR (African American) 64.9 ml/min; Globulin 4.5 gm/dl (2.5-4.0); Potassium 4.5 mmol/L (3.5-5.1)
[2021-02-08 18:59] LABS: Appearance Urine Clear (Clear); Bacteria Urine Automated Negative (Negative); Bilirubin Urine Negative (Negative); Blood Urine Trace (Negative); Cast Urine Automated 0 /lpf (0-5); Color Urine Yellow; Glucose Urine UA Negative (Negative); Ketones Urine Negative (Negative); Leukocyte Esterase Urine 1+ (Negative); Nitrite Urine Negative (Negative); Protein Urine Negative (Negative); RBC Urine Automated 0-4 /hpf (0-4); Specific Gravity Urine 1.004 (1.000-1.030); Urobilinogen Urine Negative (Negative)
--- NOTE | 2021-02-08 19:23 | CT Scan Report ---
CT OF THE ABDOMEN AND PELVIS WITHOUT CONTRAST CLINICAL HISTORY: Right-sided abdominal pain. COMPARISON STUDY: CT of the abdomen and pelvis March 11, 2020. TECHNIQUE: Axial images of the abdomen and pelvis were obtained without IV contrast. Images were revi ewed in the axial, sagittal, and coronal planes. Automated exposure control was utilized for the paola dy. A dose lowering technique was utilized adhering to the principles of ALARA. FINDINGS: Lung bases are unremarkable. No pneumatosis, free air or portal venous gas is present. Mult iple bilateral renal calculi measure up to 7 mm. There is no hydronephrosis. There are no ureteral ca lculi. A gallstone within the gallbladder without evidence for cholecystitis. Note is made of wall th ickening of the first portion of the duodenum with a probable 9 mm outpouching along the medial wall of the proximal duodenum. There is moderate adjacent infiltration. No biliary or pancreatic ductal di latation is present. There is no fluid collection. There is no evidence for a bowel obstruction. The appendix is normal. Right femoral internal fixation is incidentally noted. IMPRESSION: 1. Wall thickening of the proximal duodenum with adjacent infiltration. Apparent 9 mm outpouching elliot ng the medial wall of the first portion of the duodenum which may reflect an ulcer. The findings sugg est peptic ulcer disease/duodenitis. Acute pancreatitis could appear similar although is considered l ess likely. No free air. 2. Cholelithiasis. No evidence for acute cholecystitis. 3. Bilateral nephrolithiasis. ACT 112: Negative or not required by law. Electronically signed by: Miky Go M.D. 02/08/2021 7:22 PM
[2021-02-08] MEDS ORDERED: PANTOprazole 80 MG in DEXTROSE 5% 100 ML IV ONE (20:19)
[2021-02-08] MEDS ORDERED: FAMOTIDINE 20MG/5ML IV PUSH IV STA (20:19)
[2021-02-08] MEDS ORDERED: PANTOPRAZOLE BOLUS/DRIP 1 EA IV STA (20:19)
[2021-02-08] MEDS ORDERED: HYDROmorphone INJ 0.5 MG/0.5 ML SYR IV PRN ×2 (20:20→23:48)
--- NOTE | 2021-02-08 20:42 | History & Physical Report ---
Date of Service February 08, 2021 Assessment & Plan (1) Right lateral abdominal pain: Plan: 75yo female with PMH of DM2, CKD2, renal calculi, chronic low back pain, and right femur fracture repair presents with a two-week history of right-sided abdominal pain. Patient is stable at this time and is comfortable. Abdominal pain Patient with two-week history of epigastric/RUQ pain that radiates around right side and back with a 1-2 day acute worsening, exacerbated by certain movements as well as acidic foods Afebrile, no leukocytosis, no anemia, EKG with 1st degree AV block but otherwise unremarkable Lipase, transaminases, total bilirubin wnl CT abdomen/pelvis shows: * Wall thickening of proximal duodenum with adjacent infiltration, 9mm outpouching along medial wall of duodenum, no free air; findings suggestive of PUD vs duodenitis vs pancreatitis (though lipase wnl) * Cholelithiasis without evidence of acute cholecystitis * Multiple bilateral renal calculi measuring up to 7mm without evidence of hydronephrosis, no ureteral calculi * No biliary or pancreatic ductal dilatation In ED, patient placed on protonix drip and famotidine d/t concern for perforation; pain controlled with hydromorphone Gastroenterology consulted, patient made NPO for possible endoscopy Protonix gtt changed to 40mg IV bid, continue famotidine 20mg IV bid Pain control with APAP, dilauded, nausea control with zofran prn DM2 HbA1c 6.9% (10/07/2020), repeat A1c ordered Patient's home regimen held on admission Continue BSG checks q6h while patient is NPO, continue sliding-scale insulin, hypoglycemic protocol D5NSS @ 75mL/hr while NPO Elevated blood pressure BP elevated to 170s in ED, likely secondary to pain BP of 199/82 recorded while patient was moving, repeat check 145/80 Continue to monitor, no antihypertensives started at this time CKD2 Creatinine at baseline (1.0) on admission Avoid nephrotoxins, trend daily BMP Bilateral renal calculi Multiple bilateral renal calculi up to 7mm noted on CT without evidence of hydronephrosis Unlikely related to current clinical picture Chronic back pain Holding home tramadol, pain control as above FEN: NPO, D5NSS at 75mL/hr while NPO Code status: full code DVT ppx: SCDs Held home meds: tramadol, pioglitazone-metformin Consults: GI Dispo: med/surg (2) Type II diabetes mellitus: (3) CKD (chronic kidney disease) stage 2, GFR 60-89 ml/min: (4) Arthritis: (5) Varicose veins of both lower extremities: History of Present Illness Chief Complaint: Abdominal pain Primary Care Provider: BONNIE Gant 75yo female with PMH of DM2, CKD2, renal calculi, chronic low back pain, and right femur fracture repair presents with a two-week history of right-sided abdominal pain. The pain has been gradually worsening over the course of the past two weeks but acutely worsened over the past 1-2 days. It is a sharp, stabbing RUQ pain that radiates around her right side to her back. The pain is exacerbated by movement and patient was unable to find a comfortable position before receiving pain control in the ED. Pain is also exacerbated by coffee or acidic foods. Eating or drinking anything cold improves the pain. Over the past few days, patient's pain was alleviated by tramadol (which she uses for chronic back pain), but today tramadol didn't help the pain at all. Patient endorses two days of associated intermittent nausea without vomiting. Patient denies CP, SOB, fever, chills, constipation, diarrhea, bloody stools, dark tarry stools, pain with bowel movements, dysuria, or other symptoms. Patient endorses a long history of acid reflux, which has been acting up recently. Patient reports she has been told in the past that her gallbladder is "slow" but has not had a cholecystectomy. Patient has a history of renal calculi but has not had one in a while, and this pain feels distinctly different. Allergies Allergy/AdvReac Type Severity Reaction Status Date / Time aspirin Allergy Intermediate CHEST Verified 02/08/21 18:39 TIGHTNESS, BLURRED VISION adhesive tape Allergy Blister Verified 02/08/21 18:39 Latex, Natural Rubber Allergy Unknown Verified 02/08/21 18:39 lemon Allergy Unknown Verified 02/08/21 18:39 cephalexin AdvReac Intermediate GI upset Verified 02/08/21 18:39 Opioids - Morphine Analogues AdvReac Unknown Gastrointestinal Verified 02/08/21 18:39 Upset ciprofloxacin AdvReac Gastrointestinal Verified 02/08/21 18:39 Upset Home Medications Medication Instructions Recorded Confirmed Type wheelchair #1 ea 07/25/19 09/07/21 Rx ascorbic acid 125 mg-collagen, 1 cap PO DAILY 03/11/20 02/08/21 History hydrolyzed 740 mg capsule (Collagen Plus Vitamin C) cholecalciferol (vitamin D3) 25 1,000 mcg PO DAILY 03/11/20 02/08/21 History mcg (1,000 unit) tablet (Vitamin D3) pioglitazone 15 mg-metformin 500 1 tab PO BIDM #60 tab 10/12/20 02/08/21 Rx mg tablet (Actoplus MET) simethicone 125 mg chewable tablet 125 mg PO TID PRN 02/08/21 02/08/21 History (Gas-X Extra Strength) tramadol 50 mg tablet 50 mg PO Q8H PRN 02/08/21 02/08/21 History Past Med/Surg History Medical History Acute blood loss anemia Closed comminuted intertrochanteric fracture of right femur Diabetes Renal calculi Type II diabetes mellitus Surgical History Right femoral shaft fracture Family History Mother Cardiac disorder Stroke Diabetes Father Cardiac disorder Stroke Other Family history non-contributory Prostate cancer Denies family history of Ovarian cancer Myocardial infarction Breast cancer Colorectal cancer Social History (Updated 12/23/20 @ 14:37 by Zoraida Bush MA) Smoking Status: Never smoker Second Hand Exposure: No; Do You Dip or Chew Tobacco: No; Hx Alcohol Use: No Hx Substance Use: No Preferred Language: [place] Communication Ability: Effective Visual Impairment: No Limitations Hearing Ability: Normal Manager Performance Improvement Required: No Beliefs That Will Affect Care: None marital status: Current Living Situation: Spouse 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 Feels Safe at Home: Yes Safety Concerns: Feels Safe At This Time Childhood Exposure to Second-Hand Smoke: No Dental Care, Regularly: No Physical Activity Frequency: Daily Seatbelt Use: always Sunscreen Use: No Assistive Devices: Walker Review of Systems Review of Systems: See HPI Physical Exam Physical Exam: Constitutional: well-appearing, no acute distress HEENT: NCAT, no conjunctival injection, MMM CV: regular rhythm, no murmur appreciated, extremities well-perfused, no LE edema, lower extremities with compression stockings in place Resp: CTABL, no wheezes/rales/rhonchi appreciated, no increased work of breathing GI: soft, nondistended, mild epigastric tenderness, no tenderness of RUQ, no tenderness elsewhere, BS normoactive MSK: no gross deformities appreciated, no flank tenderness Skin: left arm with subcentimeter red papular lesion Neuro: AOx4, no focal neurological deficits appreciated Psych: cooperative, pleasant, appropriate rate/volume/quantity of speech Results & Data Results & Data ([facility]) Vital Signs (Past 12 Hours) Vital Signs Temp Pulse Resp BP Pulse Ox 02/08/21 17:51 73 98 02/08/21 14:59 36.9 C 74 19 167/90 H 98 Supervising Physician Co-Signing Physician Notes Patient seen and examined, chart reviewed, case discussed with Dr. Stout and I agree with his assessment and plan as above. In brief, patient is a 75yo female with history of DM, CKD presenting with right sided abdominal discomfort x [address] of the abdomen revealed wall thickening of the proximal duodenum with adjacent infiltration, 9mm outpouching along the medial wall of duodenum - ?PUD vs duodenitis vs pancreatitis On exam patient is afebrile, HD stable, non-toxic in appearance. \\ Skin - intact, no rashes/lesions HEENT - NC/AT, PERRL, MMM Heart - +S1/S2, regular Lungs - CTA Abd - +BS, soft, tenderness in epigastric region without rebound/guarding/peritoneal signs Ext - warm, well perfused Assessment/Plan -Concern for PUD, large ulceration noted on imaging. Lipase is WNL -Admit to medical. Continue Protonix 40mg IV BID -NPO -Pain control and anti-emetics as needed -GI consultation appreciated - ?EGD in AM -Remainder of plan as above Resident Activity Tracking Resident Involvement: Resident Care Provided Care Provided: Adult Hospital Medicine
[2021-02-08] MEDS ORDERED: PANTOprazole 40 MG in DEXTROSE 5% 100 ML IV SCH (20:45)
[2021-02-08] MEDS ORDERED: GLUCOSE 40% GEL 15 GM TUBE PO PRN (23:30)
[2021-02-08] MEDS ORDERED: ALUMINUM/MAGNESIUM SUSP 30 ML UDC PO PRN (23:30)
[2021-02-08] MEDS ORDERED: CARBOHYDRATES FOR HYPOGLYCEMIA PO PRN (23:30)
[2021-02-08] MEDS ORDERED: ONDANSETRON INJ 2 MG/ML 2 ML VIAL IV PRN (23:30)
[2021-02-08] MEDS ORDERED: MAGNESIUM HYDROXIDE SUSP 30 ML UDC PO PRN (23:30)
[2021-02-08] MEDS ORDERED: GLUCAGON FOR INJ 1 MG VIAL SQ PRN (23:30)
[2021-02-08] MEDS ORDERED: ACETAMINOPHEN 325 MG TAB PO PRN (23:30)
[2021-02-08] MEDS ORDERED: POLYETHYLENE (MIRALAX) 17 GM PACK PO PRN (23:30)
[2021-02-08] MEDS ORDERED: GLUCOSE 10 TABS/TUBE PO PRN (23:30)
[2021-02-08] MEDS ORDERED: DEXTROSE 50% 50 ML SYRINGE IV PRN (23:30)
[2021-02-08] MEDS ORDERED: SIMETHICONE 80 MG CHEW PO PRN (23:30)
[2021-02-08] MEDS: D5W AND NSS 1,000 ML IV SCH (23:59)
[2021-02-09] MEDS: INSULIN ASPART 100 UNITS/ML 3 ML PEN SC SCH ×5 (00:57→21:34)
[2021-02-09 06:39] LABS: Basophils # (auto) 0.01 K/uL (0-0.2); Basophils % (auto) 0.2 %; Eosinophils # (auto) 0.13 K/uL (0-0.5); Eosinophils % (auto) 2.3 %; Hematocrit (blood only) 38.7 % (37-47); Hemoglobin 12.4 g/dL (12.0-16.0); Immature Granulocytes # (auto) 0.02 K/uL (0.00-0.02); Immature Granulocytes % (auto) 0.4 %; Lymphocytes # (auto) 1.61 K/uL (1.2-3.4); Lymphocytes % (auto) 28.9 %; Mean Corpuscular Volume 90.4 fL (80-100); Monocytes # (auto) 0.74 K/uL (0.11-0.59); Monocytes % (auto) 13.3 %; Neutrophils # (auto) 3.06 K/uL (1.4-6.5); Neutrophils % (auto) 54.9 %; Platelet Count 205 K/uL (130-400); RDW Coefficient of Variation 13.3 % (11.5-14.5); RDW Standard Deviation 43.7 fL (36.4-46.3); Red Blood Count 4.28 M/uL (4.2-5.4); White Blood Count 5.57 K/uL (4.8-10.8)
[2021-02-09 07:06] LABS: BUN Creatinine Ratio 20.7 (10-20); Calcium 9.4 mg/dl (8.5-10.1); Creatinine Clr Calc Pharmacy 50.8 ml/min; Est GFR (African American) 67.4 ml/min; Est GFR (Non-African American) 58.2 ml/min; Potassium 4.4 mmol/L (3.5-5.1)
[2021-02-09 07:31] LABS: Estimated Average Glucose 157 mg/dl; Hemoglobin A1C 7.1 % (4.5-5.6)
[2021-02-09] MEDS: PANTOprazole 40 MG in SYRINGE 0 ML IV SCH ×2 (07:45→21:33)
[2021-02-09] MEDS: FAMOTIDINE 20 MG in SYRINGE 3 ML IV SCH ×2 (07:46→21:33)
[2021-02-09] MEDS: CHOLECALCIFEROL 1,000 UNITS 25 MCG TAB PO SCH (07:46)
--- NOTE | 2021-02-09 11:13 | Gastrointestinal Consultation ---
Date of Consultation February 09, 2021 Assessment & Plan (1) Abnormal CT of the abdomen: -Continue IV Protonix as ordered at present, then we can re-evaluate dosing post EGD -Keep NPO for EGD today -Continue to monitor H/H and for s/s of bleeding Supervising Physician Co-Signing Physician Notes Agree with GEOFF Amador as above Abd: Soft, NT, ND, +BS Continue current therapy and supportive care Proceed with EGD now. History of Present Illness Reason for Consultation: Concern for PUD Attending Physician: Tawanda Lewis History of Present Illness Patient is a 75 yo female with PMH of CKD, DM2, arthritis, & chronic back pain who is hospitalized with 2 weeks of significant abdominal pain. She notes that she initially thought it was related to her back issues. She denies NSAID use. She denies a history of heartburn or acid reflux. H/H is normal. CT scan in the ED indicated wall thickening of the proximal duodenum with adjacent infiltration and outpouching along the medial wall of the first portion of the duodenum which may reflect an ulcer. The patient is currently on IV PPI therapy and symptoms of abdominal pain have resolved. No pertinent family history of GI issues. She notes that she has no known history of H Pylori. She had a colonoscopy many years ago in [place] but has not had an EGD previously. Allergies Allergy/AdvReac Type Severity Reaction Status Date / Time aspirin Allergy Intermediate CHEST Verified 02/08/21 18:39 TIGHTNESS, BLURRED VISION adhesive tape Allergy Blister Verified 02/08/21 18:39 Latex, Natural Rubber Allergy Unknown Verified 02/08/21 18:39 lemon Allergy Unknown Verified 02/08/21 18:39 cephalexin AdvReac Intermediate GI upset Verified 02/08/21 18:39 Opioids - Morphine Analogues AdvReac Unknown Gastrointestinal Verified 02/08/21 18:39 Upset ciprofloxacin AdvReac Gastrointestinal Verified 02/08/21 18:39 Upset Home Medications Medication Instructions Recorded Confirmed Type wheelchair #1 ea 12/26/18 02/08/21 Rx ascorbic acid 125 mg-collagen, 1 cap PO DAILY 03/11/20 02/08/21 History hydrolyzed 740 mg capsule (Collagen Plus Vitamin C) cholecalciferol (vitamin D3) 25 1,000 mcg PO DAILY 03/11/20 02/08/21 History mcg (1,000 unit) tablet (Vitamin D3) pioglitazone 15 mg-metformin 500 1 tab PO BIDM #60 tab 10/12/20 02/08/21 Rx mg tablet (Actoplus MET) simethicone 125 mg chewable tablet 125 mg PO TID PRN 02/08/21 02/08/21 History (Gas-X Extra Strength) tramadol 50 mg tablet 50 mg PO Q8H PRN 02/08/21 02/08/21 History Patient History Medical History Acute blood loss anemia Closed comminuted intertrochanteric fracture of right femur Diabetes Renal calculi Type II diabetes mellitus Surgical History Right femoral shaft fracture Family History Mother Cardiac disorder Stroke Diabetes Father Cardiac disorder Stroke Other Family history non-contributory Prostate cancer Denies family history of Ovarian cancer Myocardial infarction Breast cancer Colorectal cancer Social History (Updated 12/23/20 @ 14:37 by Zoraida Bush MA) Smoking Status: Never smoker Second Hand Exposure: No; Do You Dip or Chew Tobacco: No; Hx Alcohol Use: No Hx Substance Use: No Preferred Language: German Communication Ability: Effective Visual Impairment: No Limitations Hearing Ability: Normal Railroad Inspector Required: No Beliefs That Will Affect Care: None marital status: Current Living Situation: Spouse 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 Feels Safe at Home: Yes Safety Concerns: Feels Safe At This Time Childhood Exposure to Second-Hand Smoke: No Dental Care, Regularly: No Physical Activity Frequency: Daily Seatbelt Use: always Sunscreen Use: No Assistive Devices: Walker Review of Systems Constitutional: no fever and no chills Respiratory: no cough and no dyspnea Cardiovascular: no chest pain Gastrointestinal: Abdominal pain resolved, denies melena, heartburn acid reflux or hematemesis Musculoskeletal: + back pain Psychiatric: no problem reported Hematologic / Lymphatic: no unexplained weight loss Physical Exam Constitutional: well developed Respiratory: normal respiratory effort, lungs clear to auscultation Cardiovascular: Rate/Rhythm: regular rate and regular rhythm Extremities: no edema Gastrointestinal (Abdomen): normal bowel sounds, soft, nontender, no hepatosplenomegaly Psychiatric: Orientation: alert and oriented x 3 Results & Data ([facility]) Vital Signs (Past 12 Hours) Vital Signs Temp Pulse Resp BP Pulse Ox 02/09/21 07:11 36.4 C L 59 L 16 149/76 H 100 02/09/21 00:15 167/82 H 02/08/21 23:20 37.3 C 78 16 188/[address] H [address] Abdomen/pelvis Wall thickening of the proximal duodenum with adjacent infiltration. Apparent 9 mm outpouching along the medial wall of the first portion of the duodenum which may reflect an ulcer. The findings suggest peptic ulcer disease/duodenitis. Acute pancreatitis could appear similar although is considered less likely. No free air. PG Care Time/CCT Total # of Minutes Spent Total Time Spent with Patient: Total time spent is greater than 50% in coordination of care (as documented) at patient's floor/unit and/or counseling patient: Coding Level of Care Code 96998 Initial Inpt Care Lvl [address] of the abdomen R93.5
[2021-02-09] MEDS: D5W AND NSS 1,000 ML IV SCH (11:40)
--- NOTE | 2021-02-09 15:48 | Anesthesiology Consultation ---
Date of Service February 09, 2021 Assessment & Plan (1) Encounter for pre-operative examination: Chart Review Chart Review: Acceptable Risk for Surgery and Patient NOT seen in Pre Admission Testing Consults Requested none History Surgery Operation Date: 02/09/21 17:00 Proposed Procedures p Esophagogastroduodenoscopy Dr Petersen - Jay Hung Case, DO Height/Weight Height: 5 ft 2 in Weight: 84.6 kg Allergies Allergy/AdvReac Type Severity Reaction Status Date / Time aspirin Allergy Intermediate CHEST Verified 02/08/21 18:39 TIGHTNESS, BLURRED VISION adhesive tape Allergy Blister Verified 02/08/21 18:39 Latex, Natural Rubber Allergy Unknown Verified 02/08/21 18:39 lemon Allergy Unknown Verified 02/08/21 18:39 cephalexin AdvReac Intermediate GI upset Verified 02/08/21 18:39 Opioids - Morphine Analogues AdvReac Unknown Gastrointestinal Verified 02/08/21 18:39 Upset ciprofloxacin AdvReac Gastrointestinal Verified 02/08/21 18:39 Upset Medications Home Medications Medication Instructions Recorded Confirmed Last Taken wheelchair #1 ea 12/26/18 02/08/21 Unknown ascorbic acid 125 mg-collagen, 1 cap PO DAILY 03/11/20 02/08/21 Unknown hydrolyzed 740 mg capsule (Collagen Plus Vitamin C) cholecalciferol (vitamin D3) 25 1,000 mcg PO DAILY 03/11/20 02/08/21 Unknown mcg (1,000 unit) tablet (Vitamin D3) pioglitazone 15 mg-metformin 500 1 tab PO BIDM #60 tab 10/12/20 02/08/21 Unknown mg tablet (Actoplus MET) simethicone 125 mg chewable tablet 125 mg PO TID PRN 02/08/21 02/08/21 Unknown (Gas-X Extra Strength) tramadol 50 mg tablet 50 mg PO Q8H PRN 02/08/21 02/08/21 02/08/21 Active Medications Generic Name Dose Route Start Last Admin Trade Name Freq PRN Reason Stop Dose Admin Pantoprazole Sodium 40 mg/ 10 mls @ 5 mls/min 02/09/21 09:00 02/09/21 07:45 Syringe IV 03/11/21 08:59 5 mls/min BID LIANA Administration Famotidine 20 mg/ Syringe 5 mls @ 2.5 mls/min 02/09/21 09:00 02/09/21 07:46 IV 03/11/21 08:59 2.5 mls/min BID LIANA Administration Dextrose/Sodium Chloride 1,000 mls @ 75 mls/hr 02/08/21 23:30 02/09/21 11:40 D5w And Nss IV 03/10/21 23:29 75 mls/hr .[id number] LIANA Administration Insulin Aspart 0 units 02/09/21 00:00 02/09/21 11:57 Insulin Aspart 100 Units/Ml 3 Ml Pen SC 03/11/21 00:00 Not Given Q6 LIANA Vitamin D 1,000 units 02/09/21 09:00 02/09/21 07:46 Cholecalciferol 1,000 Units 25 Mcg Tab PO 03/11/21 08:59 1,000 units DAILY LIANA Administration Past Medical History Medical History Acute blood loss anemia Closed comminuted intertrochanteric fracture of right femur Diabetes Renal calculi Type II diabetes mellitus Past Family History Family History Mother Cardiac disorder Stroke Diabetes Father Cardiac disorder Stroke Other Family history non-contributory Prostate cancer Denies family history of Ovarian cancer Myocardial infarction Breast cancer Colorectal cancer Past Surgical History Surgical History Right femoral shaft fracture Social History Smoking Status: Never smoker Do You Dip or Chew Tobacco: No Hx Alcohol Use: No Hx Substance Use: No substance use type: does not use Physical Exam Vital Signs Last Vital Signs Temp 36.4 C L 02/09/21 15:47 Pulse 84 02/09/21 15:47 Resp 14 02/09/21 15:47 BP 195/85 H 02/09/21 15:47 Pulse Ox 98 02/09/21 15:47 Testing Laboratory Results 02/09/21 05:57 02/09/21 05:57 Hemoglobin A1c 7.1 % (4.5-5.6) H 02/09/21 05:57 Urine Color Yellow 02/08/21 18:30 Urine Appearance Clear (Clear) 02/08/21 18:30 Urine pH 7.0 (4.5-7.5) 02/08/21 18:30 Ur Specific Kennedy 1.004 (1.000-1.030) 02/08/21 18:30 Urine Protein Negative (Negative) 02/08/21 18:30 Urine Glucose (UA) Negative (Negative) 02/08/21 18:30 Urine Ketones Negative (Negative) 02/08/21 18:30 Urine Nitrite Negative (Negative) 02/08/21 18:30 Ur Leukocyte Esterase 1+ (Negative) H 02/08/21 18:30 Urine WBC (Auto) 10-30 /hpf (0-5) H 02/08/21 18:30 Urine RBC (Auto) 0-4 /hpf (0-4) 02/08/21 18:30 U Hyaline Cast (Auto) 0 /lpf (0-5) 02/08/21 18:30 U Epithel Cells (Auto) 5-10 /lpf (0-5) H 02/08/21 18:30 Urine Bacteria (Auto) Negative (Negative) 02/08/21 18:30 02/08/21 18:30 Urine Culture - Preliminary Urine,Clean Catch Pin-point growth present, reincubating. 02/09/21 02/09/21 11:52 05:48 POC Glucose 116 H 153 H Electrocardiogram Date: 02/08/21 Normal sinus rhythm Left axis deviation Abnormal ECG When compared with ECG of 30-NOV-2018 05:40, No significant change was found
[2021-02-09] MEDS ORDERED: PROPOFOL IV EMULSION 10 MG/ML 20 ML VIAL IV ONE (16:00)
[2021-02-09] MEDS ORDERED: LIDOCAINE 2% 2 ML VIAL/AMP(20MG/ML) INFIL ONE (16:00)
[2021-02-09] MEDS ORDERED: ONDANSETRON INJ 2 MG/ML 2 ML VIAL ONE (16:00)
--- NOTE | 2021-02-09 16:34 | Anesthesiology Progress Note ---
Date of Service February 09, 2021 Anesthesia Post Procedure Vital Signs Vital Signs: Temp Pulse Pulse Resp BP BP Pulse Ox 02/09/21 15:47 36.4 C L 84 14 195/85 H 98 02/09/21 15:00 36.6 C 66 16 162/74 H 98 02/09/21 07:11 36.4 C L 59 L 16 149/76 H 100 02/09/21 00:15 167/82 H 02/08/21 23:20 37.3 C 78 16 188/84 H 98 02/08/21 22:00 74 22 96 02/08/21 21:32 72 16 96 02/08/21 21:00 69 15 94 02/08/21 20:30 72 14 199/82 H 99 02/08/21 20:00 68 16 161/73 H 94 02/08/21 19:30 66 14 159/68 H 94 02/08/21 19:01 66 13 166/89 H 100 02/08/21 18:30 72 13 172/83 H 100 02/08/21 17:51 73 98 Transfer of Care Handoff Completed per policy Notes Mental Status: alert / awake / arousable and participated in evaluation Patient Amnestic to Procedure: Yes Nausea / Vomiting: adequately controlled Pain: adequately controlled Airway Patency, RR, SpO2: stable & adequate BP & HR: stable & adequate Hydration State: stable & adequate Anesthetic Complications: no major complications apparent and Pt Satisfied with anesthetic care
--- NOTE | 2021-02-09 16:37 | GI REPORT ---
Patient Name: Vianney Richardson Procedure Date: 02/09/2021 3:56 PM Date of : 1945 Admit Type: Inpatient Age: 75 Gender: Female Attending MD: Jay Petersen DO Procedure: Upper GI endoscopy Providers: Jay Petersen DO Referring MD: Referred Self Indications: Generalized abdominal pain, Abnormal CT of the GI tract Medicines: Monitored Anesthesia Care Complications: No immediate complications. Estimated Blood Loss: Estimated blood loss: none. Procedure: Pre-Anesthesia Assessment: - Prior to the procedure, a History and Physical was performed, and patient medications and allergies were reviewed. The patient's tolerance of previous anesthesia was also reviewed. The risks and benefits of the procedure and the sedation options and risks were discussed with the patient. All questions were answered, and informed consent was obtained. Prior Anticoagulants: The patient has taken no previous anticoagulant or antiplatelet agents. ASA Grade Assessment: II - A patient with mild systemic disease. After reviewing the risks and benefits, the patient was deemed in satisfactory condition to undergo the procedure. After obtaining informed consent, the endoscope was passed under direct vision. Throughout the procedure, the patient's blood pressure, pulse, and oxygen saturations were monitored continuously. The Endoscope was introduced through the mouth, and advanced to the second part of duodenum. The upper GI endoscopy was accomplished without difficulty. The patient tolerated the procedure well. Findings: The esophagus was normal. A small hiatal hernia was present. Localized moderate inflammation characterized by erythema was found in the gastric antrum. Biopsies were taken with a cold forceps for histology. One non-bleeding cratered duodenal ulcer with no stigmata of bleeding was found in the duodenal bulb. The lesion was 10 mm in largest dimension. Impression: - Normal esophagus. - Small hiatal hernia. - Gastritis. Biopsied. - Non-bleeding duodenal ulcer with no stigmata of bleeding. Recommendation: - Return patient to hospital [facility] for ongoing care. - Use Protonix (pantoprazole) 40 mg PO BID. - Await pathology results. - Advance diet as tolerated. Jay Petersen DO 02/09/2021 4:36:41 PM This report has been signed electronically. Note Initiated On: 02/09/2021 3:56 PM Number of Addenda: 0 I attest to the content of the Intraoperative Record and orders documented therein, exceptions below {[id number]}
[2021-02-09] MEDS ORDERED: Nursing to Pharmacy Communication SCH (17:30)
--- NOTE | 2021-02-09 18:50 | Electrocardiogram Report ---
Test Reason : Blood Pressure : / mmHG Vent. Rate : 072 BPM Atrial Rate : 072 BPM P-R Int : 206 ms QRS Dur : 072 ms QT Int : 384 ms P-R-T Axes : 052 -33 038 degrees QTc Int : 420 ms Normal sinus rhythm Left axis deviation Poor R wave progression, consider anterior MN vs. lead placement vs. LVH Abnormal ECG When compared with ECG of 30-NOV-2018 05:40, No significant change was found Confirmed by Richard Gant ([id number]) on 02/09/2021 6:50:17 PM Referred By: REFERRED SELF Confirmed By:Reza Gant
--- NOTE | 2021-02-09 23:04 | Hospitalist Progress Note ---
Date of Service February 09, 2021 Assessment & Plan (1) Duodenal ulcer: Plan: likely cause of her presenting abdominal pain/other symptoms. abd pain now resolved. fortunately no bleeding or perforation from this ulcer. etiology?? no NSAIDs, etoh, etc. await bx from stomach for H.pylori. advance diet. PPI twice daily. will need GI f/u post-d/c. (2) Gastritis: Plan: as seen on EGD today. PPI. bx pending. (3) Abdominal pain: Plan: 2nd to #1, #2. resolved w/ PPI. (4) Type II diabetes mellitus: Plan: a1c 7.1%. resume actos at d/c. BSGs wnl here. (5) Renal calculi: Plan: will certified travel counselor patient about this incidental finding Plan: observe overnight if well tomorrow can d/c home Admission and Anticipated Discharge Date Admission Date: February 08, 2021 Subjective saw patient post-EGD she was walking around her room without difficulty independently denied any back or abdominal pain tolerated liquids at dinner - no pain, did fine she denies excessive coffee intake at home, etoh, or tobacco denies chronic use of aspirin, motrin, other NSAIDs sister had PUD many years ago back in [place] Review of Systems Review of Systems: gen - feels good, no weakness or anorexia CV - no chest pain pulm - no dyspnea gi - no nausea/emesis/pain Physical Exam Physical Exam: gen - NAD, pleasant skin - no pallor mouth - MMM heart - RRR, s1 s2, no murmur lungs - CTA b/l abd - soft NT ND BS+ ext - no edema musculo - severe kyphosis Results & Data Results & Data ([facility]) Vital Signs (Past 12 Hours) Vital Signs Temp Pulse Resp BP Pulse Ox 02/09/21 21:30 36.8 C 71 18 135/72 97 02/09/21 17:53 36.7 C 68 18 144/64 H 98 02/09/21 17:01 66 16 166/70 H 97 02/09/21 16:50 68 16 150/74 H 98 02/09/21 16:35 75 16 132/66 96 02/09/21 15:47 36.4 C L 84 14 195/85 H 98 02/09/21 15:00 36.6 C 66 16 162/74 H 98 Laboratory Results Laboratory Results - last 24 hr 02/08/21 02/09/21 02/09/21 23:51 05:48 05:57 WBC 5.57 RBC 4.28 Hgb 12.4 Hct 38.7 MCV 90.4 MCH 29.0 MCHC 32.0 RDW Std Deviation 43.7 RDW Coeff of Mary 13.3 Plt Count 205 MPV 12.0 H Immature Gran % (Auto) 0.4 Neut % (Auto) 54.9 Lymph % (Auto) 28.9 [place] % (Auto) 13.3 Eos % (Auto) 2.3 Baso % (Auto) 0.2 Neut # (Auto) 3.06 Lymph # (Auto) 1.61 [place] # (Auto) 0.74 H Eos # (Auto) 0.13 Baso # (Auto) 0.01 Immature Gran # (Auto) 0.02 Sodium Potassium Chloride Carbon Dioxide Anion Gap BUN Creatinine Est Cr Clr Drug Dosing Est GFR ( Amer) Est GFR (Non-Af Amer) BUN/Creatinine Ratio Glucose POC Glucose 127 H 153 H Estimat Average Glucose Hemoglobin A1c Calcium 02/09/21 02/09/21 02/09/21 05:57 05:57 11:52 WBC RBC Hgb Hct MCV MCH MCHC RDW Std Deviation RDW Coeff of Mary Plt Count MPV Immature Gran % (Auto) Neut % (Auto) Lymph % (Auto) [place] % (Auto) Eos % (Auto) Baso % (Auto) Neut # (Auto) Lymph # (Auto) [place] # (Auto) Eos # (Auto) Baso # (Auto) Immature Gran # (Auto) Sodium 138 Potassium 4.4 Chloride 103 Carbon Dioxide 32 Anion Gap 3.0 BUN 20 H Creatinine 0.95 Est Cr Clr Drug Dosing 50.8 Est GFR ( Amer) 67.4 Est GFR (Non-Af Amer) 58.2 BUN/Creatinine Ratio 20.7 H Glucose 158 H POC Glucose 116 H Estimat Average Glucose 157 Hemoglobin A1c 7.1 H Calcium 9.4 02/09/21 02/09/21 17:33 20:25 WBC RBC Hgb Hct MCV MCH MCHC RDW Std Deviation RDW Coeff of Mary Plt Count MPV Immature Gran % (Auto) Neut % (Auto) Lymph % (Auto) [place] % (Auto) Eos % (Auto) Baso % (Auto) Neut # (Auto) Lymph # (Auto) [place] # (Auto) Eos # (Auto) Baso # (Auto) Immature Gran # (Auto) Sodium Potassium Chloride Carbon Dioxide Anion Gap BUN Creatinine Est Cr Clr Drug Dosing Est GFR ( Amer) Est GFR (Non-Af Amer) BUN/Creatinine Ratio Glucose POC Glucose 127 H 140 H Estimat Average Glucose Hemoglobin A1c Calcium PG Care Time/CCT Total # of Minutes Spent Total Time Spent with Patient: Total time spent is greater than 50% in coordination of care (as documented) at patient's floor/unit and/or counseling patient: Coding Level of Care Code 33951 Subseq Hosp Care Lvl 2 Diagnoses Duodenal ulcer K26.9 Gastritis K29.70 Abdominal pain R10.9 Type II diabetes mellitus E11.9 Renal calculi N20.0
--- NOTE | 2021-02-10 00:14 | Billing Data ---
Date of Service February 08, 2021 Coding Level of Care Code 24202 Initial Inpt Care Lvl 3
[2021-02-10 06:13] LABS: Hematocrit (blood only) 36.4 % (37-47); Hemoglobin 11.9 g/dL (12.0-16.0); Mean Corpuscular Hemoglobin 28.9 pg (25-34); Mean Corpuscular Hgb Conc 32.7 g/dL (32-36); Mean Corpuscular Volume 88.3 fL (80-100); Mean Platelet Volume 11.8 fL (7.4-10.4); Platelet Count 189 K/uL (130-400); RDW Coefficient of Variation 13.3 % (11.5-14.5); Red Blood Count 4.12 M/uL (4.2-5.4); White Blood Count 6.11 K/uL (4.8-10.8)
[2021-02-10 06:37] LABS: BUN Creatinine Ratio 20.7 (10-20); Calcium 8.9 mg/dl (8.5-10.1); Creatinine Clr Calc Pharmacy 58.2 ml/min; Est GFR (African American) 79.4 ml/min; Est GFR (Non-African American) 68.5 ml/min; Potassium 3.9 mmol/L (3.5-5.1)
[2021-02-10] MEDS: CHOLECALCIFEROL 1,000 UNITS 25 MCG TAB PO SCH (07:43)
[2021-02-10] MEDS: INSULIN ASPART 100 UNITS/ML 3 ML PEN SC SCH ×2 (08:43→11:54)
[2021-02-10] MEDS ORDERED: PANTOprazole 40 MG TAB PO SCH (09:00)
--- NOTE | 2021-02-10 09:55 | Gastroenterology Progress Note ---
Date of Service February 10, 2021 Assessment & Plan (1) Duodenal ulcer: Plan: -Continue Protonix 40 mg BID x 8 weeks, then decrease to once daily -Avoid foods that worsen symptoms -Await pathology results to exclude H Pylori -Supportive care and discharge planning per primary team Admission and Anticipated Discharge Date Admission Date: February 08, 2021 Supervising Physician Co-Signing Physician Notes Agree with GEOFF Amador as above Patient was discharged prior to my evaluation. Subjective Patient is a 75 yo female with a duodenal ulcer found on EGD on 02/09/21. She notes she drank coffee this morning and felt that it upset her stomach so she plans to avoid that. Pathology pending from EGD. She denies further complaints at present. H/H 11.9/36.4. Review of Systems Constitutional: no fever and no chills Gastrointestinal: + abdominal pain; no nausea, no vomiting, no coffee ground emesis, no blood in stools and no melena Physical Exam Constitutional: well developed Respiratory: normal respiratory effort Cardiovascular: Extremities: no edema Gastrointestinal (Abdomen): Inspection/Auscultation: abdomen normal to inspection Musculoskeletal: Head/Neck/Chest: normocephalic Psychiatric: Orientation: alert and oriented x 3 Results & Data Results & Data ([facility]) Vital Signs (Past 12 Hours) Vital Signs Temp Pulse Resp BP Pulse Ox 02/10/21 07:19 36.7 C 69 16 138/71 95 02/10/21 01:04 95 PG Care Time/CCT Total # of Minutes Spent Total Time Spent with Patient: Total time spent is greater than 50% in coordination of care (as documented) at patient's floor/unit and/or counseling patient: Coding Level of Care Code 43779 Subseq Hosp Care Lvl 3 Diagnoses Duodenal ulcer K26.9
--- NOTE | 2021-02-10 11:40 | Discharge Summary ---
Date of Service date of admission - February 08, 2021 date of discharge - February 10, 2021 Admission HPI Per Admitting Provider 75yo female with PMH of DM2, CKD2, renal calculi, chronic low back pain, and right femur fracture repair presents with a two-week history of right-sided abdominal pain. The pain has been gradually worsening over the course of the past two weeks but acutely worsened over the past 1-2 days. It is a sharp, stabbing RUQ pain that radiates around her right side to her back. The pain is exacerbated by movement and patient was unable to find a comfortable position before receiving pain control in the ED. Pain is also exacerbated by coffee or acidic foods. Eating or drinking anything cold improves the pain. Over the past few days, patient's pain was alleviated by tramadol (which she uses for chronic back pain), but today tramadol didn't help the pain at all. Patient endorses two days of associated intermittent nausea without vomiting. Patient denies CP, SOB, fever, chills, constipation, diarrhea, bloody stools, dark tarry stools, pain with bowel movements, dysuria, or other symptoms. Patient endorses a long history of acid reflux, which has been acting up recently. Patient reports she has been told in the past that her gallbladder is "slow" but has not had a cholecystectomy. Patient has a history of renal calculi but has not had one in a while, and this pain feels distinctly different. Principal Diagnosis Duodenal Ulcer Discharge Exam Gen: NAD, a/o x 3 Neck: no JVD HEENT: MMM, no lesions Heart: RRR, s1 s2, no murmur Lungs: CTA b/l Abd: soft NT ND BS+; no HSM Ext: no edema, pulses 2+ b/l Discharge Data Allergies Allergy/AdvReac Type Severity Reaction Status Date / Time aspirin Allergy Intermediate CHEST Verified 02/08/21 18:39 TIGHTNESS, BLURRED VISION adhesive tape Allergy Blister Verified 02/08/21 18:39 Latex, Natural Rubber Allergy Unknown Verified 02/08/21 18:39 lemon Allergy Unknown Verified 02/08/21 18:39 cephalexin AdvReac Intermediate GI upset Verified 02/08/21 18:39 Opioids - Morphine Analogues AdvReac Unknown Gastrointestinal Verified 02/08/21 18:39 Upset ciprofloxacin AdvReac Gastrointestinal Verified 02/08/21 18:39 Upset Consultations [facility] Gastroenterology - Jay Case DO Procedures Performed Operation Date: 02/09/21 17:00 Actual Procedures p EGD Biopsy Cytology - Jay Hung Case, DO Findings: * The esophagus was normal. * A small hiatal hernia was present. * Localized moderate inflammation characterized by erythema was found in the gastric antrum. Biopsies were taken with a cold forceps for histology. * One non-bleeding cratered duodenal ulcer with no stigmata of bleeding was found in the duodenal bulb. The lesion was 10 mm in largest dimension. Ordered Studies Abdomen/Pelvis CT 02/08/21 17:36 CT OF THE ABDOMEN AND PELVIS WITHOUT CONTRAST CLINICAL HISTORY: Right-sided abdominal pain. COMPARISON STUDY: CT of the abdomen and pelvis March 11, 2020. TECHNIQUE: Axial images of the abdomen and pelvis were obtained without IV contrast. Images were reviewed in the axial, sagittal, and coronal planes. Automated exposure control was utilized for the study. A dose lowering technique was utilized adhering to the principles of ALARA. FINDINGS: Lung bases are unremarkable. No pneumatosis, free air or portal venous gas is present. Multiple bilateral renal calculi measure up to 7 mm. There is no hydronephrosis. There are no ureteral calculi. A gallstone within the gallbladder without evidence for cholecystitis. Note is made of wall thickening of the first portion of the duodenum with a probable 9 mm outpouching along the medial wall of the proximal duodenum. There is moderate adjacent infiltration. No biliary or pancreatic ductal dilatation is present. There is no fluid collection. There is no evidence for a bowel obstruction. The appendix is normal. Right femoral internal fixation is incidentally noted. IMPRESSION: 1. Wall thickening of the proximal duodenum with adjacent infiltration. Apparent 9 mm outpouching along the medial wall of the first portion of the duodenum which may reflect an ulcer. The findings suggest peptic ulcer disease/duodenitis. Acute pancreatitis could appear similar although is considered less likely. No free air. 2. Cholelithiasis. No evidence for acute cholecystitis. 3. Bilateral nephrolithiasis. ACT 112: Negative or not required by law. Electronically signed by: Miky Go M.D. 02/08/2021 7:22 PM Hospital Course (1) Duodenal ulcer: This was the cause of her presenting abdominal pain/other symptoms and her CT abd/pelvis findings. Following admission she was started on IV PPI and her abdominal pain improved/resolved with such. [facility] Gastroenterology was consulted, and Dr Jay Petersen performed EGD which confirmed a 10mm duodenal ulcer. She also had mild gastritis. Fortunately she had no bleeding or perforation from this ulcer. Etiology?? No NSAIDs, etoh, etc by history. Gastric biopsy pending to rule out H.pylori. Diet was resumed post-EGD and advanced without difficulty. Labs including H/H along with vitals remained stable while here. She was discharged home on protonix 40mg BID x 8 weeks, then once daily thereafter. She was advised to f/u with [facility] in 2-3 weeks post-discharge to ensure stability. She was also counseled to avoid alcohol, NSAIDs, spicy foods, excessive caffeine intake, etc following discharge. (2) Gastritis: as seen on EGD. PPI. biopsy pending at discharge. (3) Abdominal pain: 2nd to #1, #2. resolved w/ PPI. (4) Type II diabetes mellitus: Hba1c 7.1%. resume actos at discharge. BSGs wnl while here. (5) Renal calculi: Counseled patient about this incidental finding on CT abd/pelvis. Handout on stones given. (6) Gallstones: Seen incidentally on CT abd/pelvis. No evidence of cholecystitis while here. Abdominal symptoms not felt to be due to biliary cause/gallstones. Patient made aware of her gallstones. Handout given. Total Time Total Time Spent Total Time Spent (In Minutes): 40 Discharge Plan Discharge Items Patient Disposition: Home - Self-Care Reason For Visit: ABDOMINAL PAIN Discharge Diagnosis: Abdominal pain due to gastritis (irritation of the stomach lining) and a duodenal ulcer. Activity: Resume your previous activity Non-emergency contact: Primary Care Provider and [employer] Call non-emergency contact if: you have any medication questions, your symptoms worsen, your pain is not controlled, your pain is worsening and you have a fever Follow-up/Referrals: Jay Petersen, [Physician] - (see Dr Petersen or one of his PAs in 2 weeks dx - duodenal ulcer) Jovanna Gonzalez CRNP [Primary Care Provider] - 02/21/21 3:00 pm (see your family doctor within 1 week ) Diet: Carb Consistent or DM2 Diet Comment: "BLAND" diet please x 2 weeks (avoid spicy foods, fried foods, etc) Addtl Attending Provider Instructions: Mrs Richardson, You were admitted to [facility] for abdominal pain. A CT scan of your abdomen in the ER showed inflammation/abnormality of the duode num (the first portion of your small intestine which attaches to your stomach). You also had gallstones and kidney stones - both seen incidentally. Dr Petersen from [facility] performed upper endoscopy (EGD) on 02/09/21. This showed mild gastritis (irritation of the stomach lining) and a 1cm duodenal ulcer. The ulcer was the cause of the duodenal inflammation seen on CT scan. Fortunately the stomach and the duodenum had no evidence of bleeding. Your symptoms improved with IV acid reducers. Recommendations - 1. bland diet for 2 weeks - avoid spicy foods, fried foods, red sauces, chocolate, garlic, alcohol, coffee, and caffeinated tea. Would even avoid decaffeinated coffee during this 2 week period as well. 2. avoid any other foods not listed above that irritate your stomach. 3. take pantoprazole acid plane tableman -- 40mg twice daily (morning and at bedtime). take your first dose tonight. After 2 months your dose of the pantoprazole will be reduced to once daily. 4. avoid aspirin, motrin, ibuprofen, naprosyn, alleve, goodie powders, BS powders. it is OK TO TAKE TYLENOL for aches/pains. 5. please stop your supplement that contains vitamin C as vitamin C is acidic. 6. drink plenty of water daily to prevent additional kidney stones to form. See handout on kidney stones. The kidney stones are not causing any problems at this time. 7. the gallstones are not causing trouble at this time and the gall bladder did not appear sick on the CT scan. I included a handout about gallstones for your information. Follow-up - see separate section Return to [facility] if - * you have severe, recurrent abdominal pain * you have vomiting or inability to keep food/beverage down * you see black, dark, or tarry stool - this can be a sign of bleeding from your ulcer * you have dizziness or lightheadedness * any other concerns Continue to feel better! -Dr Lewis Pending Studies at Discharge: Yes Studies:: biopsy from your upper endoscopy Stand-Alone Forms: My [facility], Smoking Cessation Medications and DC Order Prescriptions: New pantoprazole 40 mg Tablet,Delayed Release (Dr/Ec) 40 mg PO BID Qty: 60 RF: 1 Continued (DME) wheelchair device See Dose Instructions .ROUTE .MEDSUPPLY Qty: 1 RF: 0 pioglitazone-metformin [Actoplus MET] 15-500 mg tablet 1 tab PO BIDM Qty: 60 RF: 5 cholecalciferol (vitamin D3) [Vitamin D3] 25 mcg (1,000 unit) Tablet 1,000 mcg PO DAILY RF: 0 tramadol 50 mg Tablet 50 mg PO Q8H PRN (Reason: Pain) RF: 0 simethicone [Gas-X Extra Strength] 125 mg Tablet,Chewable 125 mg PO TID PRN (Reason: gas) RF: 0 Discontinued Collagen Plus Vitamin C 125-740 mg Capsule 1 cap PO DAILY RF: 0 Discharge Orders: Discharge Order (Routine); Ordered 02/10/21 Ordered By: Tawanda Alvares/Other Patient Handouts: A1C, Managing Type 2 Diabetes, What Are Gallstones, Understanding Kidney Stones, ED Peptic Ulcer Disease (All Causes) Admission Data Admit Date/Time: 02/08/21 21:49 Attending Provider: Tawanda Lewis Admit Provider: Trenton Stout Primary Care Provider: Jovanna Gonzalez Other Providers: Alla Martinez ; Jay Petersen ; Gertrudis Michaud ; Michelle Rasmussen ; Zion Mendze Other Interventions: Discharge Summary Assessment (RN) Last Done: 02/10/21 11:51 Coding Level of Care Code D/C DAY MANAGEMENT >30 MINS Diagnoses Duodenal ulcer K26.9 Gastritis K29.70 Abdominal pain R10.9 Type II diabetes mellitus E11.9 Renal calculi N20.0 Gallstones K80.20
== END 2021-02-10 14:19 | disposition home or self-care (01) | DRG 384 ==
LOC: ED 14:23 → SUATTDRO 21:49 → 3E 21:49

== ENCOUNTER 2022-09-03 16:13 | Inpatient (IN) ==
--- NOTE | 2022-09-03 16:27 | ED Triage Note ---
Date of Service September 03, 2022 History of Present Illness This patient was briefly evaluated while in triage. An abbreviated physical exam was performed. This patient is a 77-year-old Female who presents to the ED for evaluation of nausea, vomiting, dizzy, and weakness. Symptoms for about one day. She has not been able to take her normal medications this morning. No known exposure to illness. She arrives via Ambulance. Physical Exam VITALS: Vitals are noted on the nurse's note and reviewed by myself. Vital signs stable. GENERAL: White female holding an emesis bag in triage. She appears fatigues. HEART: Regular rate and rhythm without murmurs gallops or rubs. LUNGS: Clear to auscultation bilaterally without wheezes, rales or rhonchi. No retractions or accessory muscle use. NEURO: Patient was alert and oriented to person place and time. CN II through XII grossly intact. Initial orders for labs and / or imaging were placed and patient was placed in the waiting area until a bed is available. Please see further documentation for the full ED course.
[2022-09-03 17:00] LABS: Hematocrit (blood only) 38.3 % (37.0-47.0); Hemoglobin 12.9 g/dl (12.0-16.0); Immature Granulocytes # (auto) 0.02 K/uL (0.01-0.20); Immature Granulocytes % (auto) 0.5 %; Lymphocytes # (auto) 0.48 K/uL (1.2-3.4); Lymphocytes % (auto) 12.4 %; Mean Corpuscular Hemoglobin 28.6 pg (25.0-34.0); Mean Corpuscular Hgb Conc 33.7 g/dL (32.0-36.0); Mean Corpuscular Volume 84.9 fL (80.0-100.0); Mean Platelet Volume 11.9 fL (9.4-12.4); Monocytes # (auto) 0.07 K/uL (0.11-0.59); Monocytes % (auto) 1.8 %; Neutrophils # (auto) 3.31 K/uL (1.40-6.50); Neutrophils % (auto) 85.3 %; Platelet Count 178 K/uL (130-400); RDW Coefficient of Variation 13.3 % (11.5-14.5); RDW Standard Deviation 40.9 fL (36.4-46.3); Red Blood Count 4.51 M/uL (4.20-5.40); White Blood Count 3.88 K/ul (4.8-10.8)
[2022-09-03 17:17] LABS: Alanine Aminotransferase 11 U/L (7-52); Albumin Globulin Ratio 1.3 (0.9-2); Albumin Level 4.4 gm/dl (3.4-5.0); Alkaline Phosphatase 72 U/L (34-104); Anion Gap 9 (3-11); Aspartate Aminotransferase 18 U/L (13-39); BUN Creatinine Ratio 28.7 (10-20); Bilirubin,Total 0.8 mg/dl (0.2-1.0); Blood Urea Nitrogen 25 mg/dl (6-23); Calcium 10.1 mg/dl (8.6-10.3); Carbon Dioxide 29 mmol/L (21-32); Chloride 95 mmol/L (98-107); Est GFR (Non-African American) 63.8 ml/min; Globulin 3.4 gm/dl (2.5-4.0); Glucose 206 mg/dl (70-99(Fasting)); Lipase 23 U/L (11-82); Magnesium 1.5 mg/dl (1.7-2.4); Potassium 3.7 mmol/L (3.5-5.1); Sodium 133 mmol/L (136-145); Total Protein 7.8 gm/dl (6.0-8.3)
[2022-09-03] MEDS ORDERED: ONDANSETRON INJ 2 MG/ML 2 ML VIAL IV STA ×2 (17:18→18:48)
[2022-09-03] MEDS ORDERED: SODIUM CHLORIDE 0.9% 1000ML 500 ML IV ONE (17:18)
[2022-09-03 17:23] LABS: Troponin I High Sensitivity 8.7 pg/ml (0-14)
[2022-09-03 17:35] LABS: Influenza A virus by PCR Negative (Neg); Influenza B virus by PCR Negative (Neg); RSV by PCR Negative (Neg); SARS CoV2 RNA(COVID-19) Ceph NEGATIVE (Negative)
--- NOTE | 2022-09-03 17:49 | Emergency Department Note ---
Impression & Plan Dizziness, Nausea, Hypomagnesemia ED Provider Note Provider: Uli Dahl MD DATE OF SERVICE: 09/02/2022 CHIEF COMPLAINT: Dizziness, nausea and vomiting HISTORY OF PRESENT ILLNESS: Patient is a 77-year-old female history of CKD and diabetes presenting here via ambulance from her home. States yesterday evening began to have nausea and vomiting. Feeling dizzy with this. States particular she tries to stand up she feels very dizzy. Denies particular numbness or weakness in extremity. Denies significant abdominal pain. No sick contacts reported. Anytime she tries to eat or drink anything she gets nauseous and again has vomiting. Denies diarrhea. Denies suspect food intake. Reports maybe a little bit of double vision. PAST MEDICAL HISTORY: As noted above MEDICATIONS: Reviewed home medication list but states she has not taken them today due to her nausea. SOCIAL HISTORY: Lives at home with PHYSICAL EXAM: GENERAL: alert and oriented in no acute distress on stretcher Head: normocephalic and atraumatic EYES: No injection, discharge or icterus. PERRL, EOMI. NECK: Trachea midline. ENT: Mucous membranes pink and moist. LUNGS: Airway patent. No retractions. Breath sounds clear with good air entry bilaterally. HEART: Regular rate and rhythm. No chest wall tenderness ABDOMEN: Soft and non-tender, without guarding or rebound. SKIN: Acyanotic, warm, dry, without rashes EXTREMITIES: Without swelling, tenderness or deformity NEUROLOGICAL: No focal deficits. No aphasia. No facial droop or slurred speech. Normal strength and tone in the extremities. Sensation to gross touch normal. EK beats per minutes. Normal sinus rhythm. No PVC or PAC. No acute ST segment elevation or depression with a QTc of 453. Left axis noted CONTINUOUS CARDIAC MONITORING: was ordered and showed a heart rate of 60s-70s bpm in normal sinus rhythm Patient's laboratory studies and imaging reviewed. Differential includes Gastroenteritis, food borne illness, infections, appendicitis, diverticulitis, inflammatory bowel disease, obstruction, GI bleed, biliary pathology, possible neurological complications such as CVA as well as other pathologies. IMPRESSION/MEDICAL DECISION MAKING: Patient with GI symptoms of nausea and vomiting but no diarrhea. Denies signif icant abdominal pain. No tenderness on exam. Patient states some dizziness may be double vision prickly when she tries to stand up and move around. Seems somewhat orthostatic. Given IV fluids. Given Zofran for nausea. Denies sick contact or suspect food intake. COVID test completed and negative. EKG without significant acute ischemic abnormalities noted. Troponin within normal limits. Blood work with slight leukopenia but no anemia. Slight hyponatremia of 133. Negative COVID and influenza. No signs of hepatitis or pancreatitis magnesium slightly low. Renal function stable. Did complete a CT of the head although again it seems likely that this is more GI and she is not having other significant focal numbness or weakness. CT head report was reassuring. Discussed with the patient given her difficulty with ambulation due to her dizziness staying for further evaluation. at bedside. Given IV magnesium replacement as this is mildly low. Blood sugar somewhat elevated in light of her diabetes and not taking her diabetic medications not unexpected but not HHS or DKA. Still with some nausea and given additional Zofran and reevaluation. Discussed with the hospitalist and a KUB was obtained per the recommendation as well without significant obstructive findings noted. DIAGNOSIS: Nausea and vomiting, dizziness, hypomagnesemia DISPOSITION: Hospitalist will evaluate Patient and were agreeable with this plan. Past Med/Surg History Medical History (Updated 09/03/22 @ 23:26 by Uli Dahl M.D.) Abdominal pain Acid reflux Arthritis CKD (chronic kidney disease) stage 2, GFR 60-89 ml/min Duodenal ulcer Gastritis Multiple renal calculi NO PROBLEMS WITH CURRENTLY - UPCOMING F/U X RAY Peptic ulcer disease Renal calculi Spinal stenosis Type II diabetes mellitus Varicose veins of both lower extremities Surgical History (Updated 04/11/21 @ 14:21 by Hiral Webster MA) History of colonoscopy History of hip surgery right hip/hardware in place -hx femur fx History of hysterectomy History of surgery Broken right femur repair History of varicose vein stripping BOTH LEGS X 3 Family History (Updated 04/11/21 @ 14:22 by Hiral Webster MA) Mother Diabetes Cardiac disorder Stroke Father Cardiac disorder Stroke Grandmother (Maternal) Family history of colon cancer Other Family history non-contributory No family history of adverse response to anesthesia No family history of bleeding disorder Prostate cancer Denies family history of Ovarian cancer Myocardial infarction Breast cancer Colorectal cancer Social History Smoking Status: Never smoker Second Hand Exposure: No; Hx Alcohol Use: No Hx Substance Use: No Preferred Language: Maltese Communication Ability: Effective Communication Ability Comment: PHONE INTERVIEW WITH KAILA BUSTAMANTE APPROVED Visual Impairment: No Limitations Hearing Ability: Normal 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 [employer] 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 Architect Required: No Beliefs That Will Affect Care: None marital status: Current Living Situation: Spouse 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 Feels Safe at Home: Yes Childhood Exposure to Second-Hand Smoke: No Dental Care, Regularly: No Physical Activity Frequency: Daily Seatbelt Use: always Sunscreen Use: No Assistive Devices: Denture - Upper, Denture - Lower and Walker Allergies Allergies Allergy/AdvReac Type Severity Reaction Status Date / Time adhesive tape Allergy Unknown Blisters Verified 01/04/22 14:54 aspirin Allergy Unknown BLACKS OUT Verified 01/04/22 14:54 VISION , EVERYTHING TURNS BLACK Latex, Natural Rubber Allergy Unknown BLISTERS Verified 01/04/22 14:54 lemon Allergy Unknown STAY AWAY Verified 01/04/22 14:54 FROM ACIDIC FOODS, STOMACH ULCER cephalexin AdvReac Unknown GI upset Verified 01/04/22 14:54 ciprofloxacin AdvReac Unknown N/V Verified 01/04/22 14:54 Opioids - Morphine Analogues AdvReac Unknown N/V Verified 01/04/22 14:54 ACIDIC FOODS AdvReac Unknown TOLD TO Uncoded 01/04/22 14:54 STAY AWAY FROM ACIDIC FOODS, STOMACH ULCER Home Meds Home Medications Medication Instructions Recorded Confirmed cholecalciferol (vitamin D3) 25 1,000 mcg PO DAILY 03/11/20 09/03/22 mcg (1,000 unit) tablet (Vitamin D3) Collagen 1,000 mg PO DAILY 03/30/21 09/03/22 pantoprazole 40 mg tablet,delayed 40 mg PO DAILY 09/03/22 09/03/22 release pioglitazone 15 mg-metformin 500 1 tab PO BID 09/03/22 09/03/22 mg tablet Previous Rx's Medication Instructions Recorded wheelchair #1 ea 12/26/18 blood sugar diagnostic (OneTouch #100 ea 07/06/21 Ultra Test strips) losartan 25 mg tablet 25 mg PO DAILY #90 tabs 02/27/22 tramadol 50 mg tablet 50 mg PO BID PRN pain #40 tabs 08/19/22 Results & Data (ED) Vital Signs Vital Signs - 24 hr 09/03/22 16:20 09/03/22 17:28 09/03/22 18:07 Temperature 36.5 C Temperature Source Temporal Artery Scan Pulse Rate 75 Pulse Rate [Apical] 73 Pulse Rate from SpO2 Sensor Respiratory Rate 16 15 Respiratory Effort / Characteristics Non-Labored Spontaneous Respiratory Depth Normal Blood Pressure 159/85 H Blood Pressure [Right Arm] 154/68 H Blood Pressure Mean 109 Blood Pressure Mean [Right Arm] 96 Pulse Oximetry 99 96 97 Oxygen Delivery Method Room Air Room Air Room Air Sepsis Recent Fever Within 48 Hours No Sepsis New/Unexplained Change in Mental Status No Sepsis Action Taken by Nursing No Action Required 09/03/22 17:33 09/03/22 17:27 09/03/22 17:30 Temperature Temperature Source Pulse Rate 73 75 73 Pulse Rate [Apical] Pulse Rate from SpO2 Sensor 74 73 Respiratory Rate 17 14 Respiratory Effort / Characteristics Respiratory Depth Blood Pressure Blood Pressure [Right Arm] Blood Pressure Mean Blood Pressure Mean [Right Arm] Pulse Oximetry 97 95 Oxygen Delivery Method Room Air Room Air Sepsis Recent Fever Within 48 Hours Sepsis New/Unexplained Change in Mental Status Sepsis Action Taken by Nursing 09/03/22 18:00 09/03/22 18:30 09/03/22 21:09 Temperature Temperature Source Pulse Rate 80 70 Pulse Rate [Apical] 68 Pulse Rate from SpO2 Sensor 72 70 Respiratory Rate 14 15 15 Respiratory Effort / Characteristics Respiratory Depth Blood Pressure Blood Pressure [Right Arm] 165/68 H Blood Pressure Mean Blood Pressure Mean [Right Arm] 100 Pulse Oximetry 98 98 94 Oxygen Delivery Method Room Air Room Air Sepsis Recent Fever Within 48 Hours Sepsis New/Unexplained Change in Mental Status Sepsis Action Taken by Nursing 09/03/22 21:31 09/03/22 19:00 09/03/22 19:30 Temperature Temperature Source Pulse Rate 65 66 72 Pulse Rate [Apical] Pulse Rate from SpO2 Sensor 66 70 Respiratory Rate 19 17 Respiratory Effort / Characteristics Respiratory Depth Blood Pressure Blood Pressure [Right Arm] Blood Pressure Mean Blood Pressure Mean [Right Arm] Pulse Oximetry 99 97 Oxygen Delivery Method Sepsis Recent Fever Within 48 Hours Sepsis New/Unexplained Change in Mental Status Sepsis Action Taken by Nursing 09/03/22 20:00 09/03/22 20:00 09/03/22 20:30 Temperature Temperature Source Pulse Rate 70 69 Pulse Rate [Apical] Pulse Rate from SpO2 Sensor 70 69 Respiratory Rate 15 16 Respiratory Effort / Characteristics Respiratory Depth Blood Pressure 162/66 H Blood Pressure [Right Arm] Blood Pressure Mean 98 Blood Pressure Mean [Right Arm] Pulse Oximetry 92 91 Oxygen Delivery Method Sepsis Recent Fever Within 48 Hours Sepsis New/Unexplained Change in Mental Status Sepsis Action Taken by Nursing 09/03/22 21:00 09/03/22 21:00 09/03/22 21:28 Temperature Temperature Source Pulse Rate 68 68 Pulse Rate [Apical] Pulse Rate from SpO2 Sensor 68 69 Respiratory Rate 16 13 Respiratory Effort / Characteristics Respiratory Depth Blood Pressure 165/68 H Blood Pressure [Right Arm] Blood Pressure Mean 100 Blood Pressure Mean [Right Arm] Pulse Oximetry 93 96 Oxygen Delivery Method Sepsis Recent Fever Within 48 Hours Sepsis New/Unexplained Change in Mental Status Sepsis Action Taken by Nursing 09/03/22 21:28 09/03/22 21:30 Temperature Temperature Source Pulse Rate 69 Pulse Rate [Apical] Pulse Rate from SpO2 Sensor 69 Respiratory Rate 15 Respiratory Effort / Characteristics Respiratory Depth Blood Pressure 163/63 H Blood Pressure [Right Arm] Blood Pressure Mean 96 Blood Pressure Mean [Right Arm] Pulse Oximetry 94 Oxygen Delivery Method Sepsis Recent Fever Within 48 Hours Sepsis New/Unexplained Change in Mental Status Sepsis Action Taken by Nursing Laboratory Data 09/03/22 16:40 09/03/22 16:40 Lab Results 09/03/22 09/03/22 09/03/22 Range/Units 16:40 16:40 16:40 WBC 3.88 L (4.8-10.8) K/ul RBC 4.51 (4.20-5.40) M/uL Hgb 12.9 (12.0-16.0) g/dl Hct 38.3 (37.0-47.0) % MCV 84.9 (80.0-100.0) fL MCH 28.6 (25.0-34.0) pg MCHC 33.7 (32.0-36.0) g/dL RDW Std Deviation 40.9 (36.4-46.3) fL RDW Coeff of Mary 13.3 (11.5-14.5) % Plt Count 178 (130-400) K/uL MPV 11.9 (9.4-12.4) fL Immature Gran % (Auto) 0.5 % Neut % (Auto) 85.3 % Lymph % (Auto) 12.4 % Kerr % (Auto) 1.8 % Eos % (Auto) 0.0 % Baso % (Auto) 0.0 % Neut # (Auto) 3.31 (1.40-6.50) K/uL Lymph # (Auto) 0.48 L (1.2-3.4) K/uL Kerr # (Auto) 0.07 L (0.11-0.59) K/uL Eos # (Auto) 0.00 (0-0.50) K/uL Baso # (Auto) 0.00 (0-0.2) K/uL Immature Gran # (Auto) 0.02 (0.01-0.20) K/uL Sodium 133 L (136-145) mmol/L Potassium 3.7 (3.5-5.1) mmol/L Chloride 95 L (98-107) mmol/L Carbon Dioxide 29 (21-32) mmol/L Anion Gap 9 (3-11) BUN 25 H (6-23) mg/dl Creatinine 0.87 (0.6-1.2) mg/dl Est Cr Clr Drug Dosing Not Reportable Est GFR ( Amer) 74.0 ml/min Est GFR (Non-Af Amer) 63.8 ml/min BUN/Creatinine Ratio 28.7 H (10-20) Glucose 206 H (70-99(Fasting)) mg/dl Calcium 10.1 (8.6-10.3) mg/dl Magnesium 1.5 L (1.7-2.4) mg/dl Total Bilirubin 0.8 (0.2-1.0) mg/dl AST 18 (13-39) U/L ALT 11 (7-52) U/L Alkaline Phosphatase 72 (34-104) U/L Troponin I High Sens 8.7 (0-14) pg/ml Total Protein 7.8 (6.0-8.3) gm/dl Albumin 4.4 (3.4-5.0) gm/dl Globulin 3.4 (2.5-4.0) gm/dl Albumin/Globulin Ratio 1.3 (0.9-2) Lipase 23 (11-82) U/L SARS-CoV-2 (PCR) NEGATIVE (Negative) Influenza Type A (PCR) Negative (Neg) Influenza Type B (PCR) Negative (Neg) RSV (RT-PCR) Negative (Neg) Administered Medications Discontinued Medications Sodium Chloride (Nss 1000ml) 500 mls @ 999 mls/hr IV .Q31M ONE Stop: 09/03/22 17:48 Last Infusion: 09/03/22 17:56 Dose: 0 mls/hr Documented By: Admin: 09/03/22 17:25 Dose: 999 mls/hr Documented By: UZMA Magnesium Sulfate/Dextrose (Magnesium Sulfate / D5w) 1 gm in 100 mls @ 200 mls/hr IV Q30M LIANA Stop: 09/03/22 19:43 Last Infusion: 09/03/22 20:22 Dose: 0 mls/hr Documented By: Admin: 09/03/22 19:47 Dose: 200 mls/hr Documented By: Infusion: 09/03/22 19:43 Dose: 0 mls/hr Documented By: Admin: 09/03/22 18:56 Dose: 200 mls/hr Documented By: UZMA Meclizine HCl (Meclizine Hcl 25 Mg Tab) 25 mg PO NOW STA Stop: 09/03/22 19:55 Last Admin: 09/03/22 20:10 Dose: 25 mg Documented By: ELDER Ondansetron HCl (Ondansetron Inj 2 Mg/Ml 2 Ml Vial) 4 mg IV NOW STA Stop: 09/03/22 17:19 Last Admin: 09/03/22 17:25 Dose: 4 mg Documented By: UZMA Ondansetron HCl (Ondansetron Inj 2 Mg/Ml 2 Ml Vial) 4 mg IV NOW STA Stop: 09/03/22 18:49 Last Admin: 09/03/22 18:53 Dose: 4 mg Documented By: UZMA Imaging Data Radiologist's Impression: Head CT 09/03/22 17:18 CT head/brain wo con CLINICAL HISTORY: dizzy, vomiting Technique: Contiguous axial CT images of the head were acquired from the base of the skull to the vertex without intravenous contrast administration. Images were viewed in brain, subdural and bone windows. Automated dose lowering techniques and/or adjustment according to patient size were utilized for this exam. Comparison: None available at the time of this dictation. Findings: The ventricles, basal cisterns, and cerebral sulci are normal. There is no acute intracranial hemorrhage or evidence of acute territorial infarction. Neither mass effect, shift of the midline structures, nor abnormal extra-axial fluid collections are shown. Imaged portions of the paranasal sinuses and mastoid air cells are clear. The orbits appear normal. There are no acute fractures of the calvaria or scalp swelling. Impression: No acute intracranial hemorrhage, no evidence of acute territorial infarction or other acute intracranial disease process. ACT 112: Negative or not required by law. Electronically signed by: Jigar Soto M.D. 09/03/2022 6:[address] 09/03/22 20:48 Exam(s): CT C SPINE EXAM: CT Cervical Spine Without Intravenous Contrast CLINICAL HISTORY: Reason for exam: neck pain, dizzy and vomits when turns head left. TECHNIQUE: Axial computed tomography images of the cervical spine without intravenous contrast. CTDI is 14.34 mGy and DLP is 273.65 mGy-cm. Automated exposure control was utilized for the study. A dose lowering technique was utilized adhering to the principles of ALARA. COMPARISON: No relevant prior studies available. FINDINGS: Vertebrae: Probable osteoporosis. No acute fracture. Discs/spinal canal/neural foramina: Mild to moderate degenerative disc and facet disease, commensurate with age. Soft tissues: Unremarkable. IMPRESSION: 1. Osteoporosis and degenerative change. 2. No fracture or acute bony abnormality. Electronically signed by: Susana Arguello M.D. 09/03/22 23:04 PM Discharge Plan Visit Data Chief Complaint: Weakness Stated Complaint: NAUSEA, VOMITING, WEAKNESS ED Provider: Uli Dahl Discharge Problem: Dizziness, Nausea, Hypomagnesemia Patient Disposition: Admitted As Inpatient Discharge Instructions Interventions: ED Discharge Assessment Last Done: 09/03/22 22:53
--- NOTE | 2022-09-03 18:40 | CT Scan Report ---
CT head/brain wo con CLINICAL HISTORY: dizzy, vomiting Technique: Contiguous axial CT images of the head were acquired from the base of the skull to the kye tate without intravenous contrast administration. Images were viewed in brain, subdural and bone [facility]. Automated dose lowering techniques and/or adjustment according to patient size were utilized for this exam. Comparison: None available at the time of this dictation. Findings: The ventricles, basal cisterns, and cerebral sulci are normal. There is no acute intracranial hemorrh age or evidence of acute territorial infarction. Neither mass effect, shift of the midline structures , nor abnormal extra-axial fluid collections are shown. Imaged portions of the paranasal sinuses and mastoid air cells are clear. The orbits appear normal. There are no acute fractures of the calvaria or scalp swelling. Impression: No acute intracranial hemorrhage, no evidence of acute territorial infarction or other acute intracra nial disease process. ACT 112: Negative or not required by law. Electronically signed by: Jigar Soto M.D. 09/03/2022 6:38 PM
[2022-09-03] MEDS: MAGNESIUM SULFATE / D5W 1 GM/100 ML BAG IV SCH ×2 (18:56→19:47)
[2022-09-03] MEDS ORDERED: MECLIZINE HCL 25 MG TAB PO STA (19:54)
--- NOTE | 2022-09-03 21:56 | History & Physical Report ---
Date of Service September 03, 2022 Assessment & Plan (1) Stage III chronic kidney disease: (2) History of duodenal ulcer: (3) Sensorineural hearing loss (SNHL) of both ears: (4) Diabetes: (5) Tinnitus of both ears: (6) Acid reflux: (7) Spinal stenosis: (8) Intractable nausea and vomiting: (9) Dizziness: Plan Intractable nausea and vomiting/dizziness- Patient reports symptoms are worse when she turns her head and neck to the left, and this is upright in bed with head turning to the right and tilted CT of head negative CT of neck ordered and pending notes that there has been a history of spinal stenosis involving the neck Question whether patient may have a form of a Chiari malformation May need MRI of neck, however, unable to lay flat in the MRI and at this time Baclofen 5 mg p.o. 3 times daily, with first dose this evening Patient does have known history of SNHL bilaterally, question whether Mnire's may be a cause of her symptoms Consider neurology consult in a.m. GERD- Continue pantoprazole 40 mg daily Diabetes mellitus- Hold pioglitazone and metformin Place on Accu-Cheks before meals and at bedtime with NovoLog coverage per scale Hypertension- Continue losartan Chronic pain syndrome- Acetaminophen 650 mg by mouth every 6 hours as needed for mild pain or fever Tramadol 50 mg by mouth twice daily as needed for moderate pain History of Present Illness Chief Complaint: The patient presents to the emergency department with complaint of nausea and vomiting since last evening, and the development of dizziness this morning, with worsening of her chronic neck pain, all of which worsen when she turns her head to the left Primary Care Provider: BONNIE Gnat The patient is a 77-year-old female with a past medical history including CKD stage III, duodenal ulcer, SNHL of bilateral ears, diabetes mellitus, right femoral shaft fracture, tinnitus, hypertension, bilateral nephrolithiasis and gallstones. She presents to the emergency department as noted above. CT scan of head was negative, KUB was negative. CT scan of the cervical spine is ordered and pending Significant laboratories: Hemoglobin 12.9, hematocrit 38.3, sodium 133, glucose 206 and magnesium 1.5 COVID-19, influenza A and B and RSV testing all negative Allergies Allergy/AdvReac Type Severity Reaction Status Date / Time adhesive tape Allergy Unknown Blisters Verified 01/04/22 14:54 aspirin Allergy Unknown BLACKS OUT Verified 01/04/22 14:54 VISION , EVERYTHING TURNS BLACK Latex, Natural Rubber Allergy Unknown BLISTERS Verified 01/04/22 14:54 lemon Allergy Unknown STAY AWAY Verified 01/04/22 14:54 FROM ACIDIC FOODS, STOMACH ULCER cephalexin AdvReac Unknown GI upset Verified 01/04/22 14:54 ciprofloxacin AdvReac Unknown N/V Verified 01/04/22 14:54 Opioids - Morphine Analogues AdvReac Unknown N/V Verified 01/04/22 14:54 ACIDIC FOODS AdvReac Unknown TOLD TO Uncoded 01/04/22 14:54 STAY AWAY FROM ACIDIC FOODS, STOMACH ULCER Home Medications Medication Instructions Recorded Confirmed Type wheelchair #1 ea 12/26/18 09/03/22 Rx cholecalciferol (vitamin D3) 25 1,000 mcg PO DAILY 03/11/20 09/03/22 History mcg (1,000 unit) tablet (Vitamin D3) Collagen 1,000 mg PO DAILY 03/30/21 09/03/22 History blood sugar diagnostic (OneTouch #100 ea 07/06/21 09/03/22 Rx Ultra Test strips) losartan 25 mg tablet 25 mg PO DAILY #90 tabs 02/27/22 09/03/22 Rx tramadol 50 mg tablet 50 mg PO BID PRN pain #40 tabs 08/19/22 09/03/22 Rx pantoprazole 40 mg tablet,delayed 40 mg PO DAILY 09/03/22 09/03/22 History release pioglitazone 15 mg-metformin 500 1 tab PO BID 09/03/22 09/03/22 History mg tablet Past Med/Surg History Medical History (Updated 09/03/22 @ 22:37 by En Pak MD) Abdominal pain Acid reflux Arthritis CKD (chronic kidney disease) stage 2, GFR 60-89 ml/min Duodenal ulcer Gastritis Multiple renal calculi NO PROBLEMS WITH CURRENTLY - UPCOMING F/U X RAY Peptic ulcer disease Renal calculi Spinal stenosis Type II diabetes mellitus Varicose veins of both lower extremities Surgical History (Updated 04/11/21 @ 14:21 by Hiral Webster MA) History of colonoscopy History of hip surgery right hip/hardware in place -hx femur fx History of hysterectomy History of surgery Broken right femur repair History of varicose vein stripping BOTH LEGS X 3 Family History (Updated 04/11/21 @ 14:22 by Hiral Webster MA) Mother Diabetes Cardiac disorder Stroke Father Cardiac disorder Stroke Grandmother (Maternal) Family history of colon cancer Other Family history non-contributory No family history of adverse response to anesthesia No family history of bleeding disorder Prostate cancer Denies family history of Ovarian cancer Myocardial infarction Breast cancer Colorectal cancer Social History Smoking Status: Never smoker Second Hand Exposure: No; Hx Alcohol Use: No Hx Substance Use: No Preferred Language: Bahamian Communication Ability: Effective Communication Ability Comment: PHONE INTERVIEW WITH ROBBY, PT APPROVED Visual Impairment: No Limitations Hearing Ability: Normal [employer] Required: No Beliefs That Will Affect Care: None marital status: Current Living Situation: Spouse 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 Feels Safe at Home: Yes Childhood Exposure to Second-Hand Smoke: No Dental Care, Regularly: No Physical Activity Frequency: Daily Seatbelt Use: always Sunscreen Use: No Assistive Devices: Denture - Upper, Denture - Lower and Walker Review of Systems Review of Systems: The patient denies chest pain, palpitations, shortness of breath, dyspnea on exertion, cough, lower extremity swelling, sore throat, fevers, chills, sweats, diarrhea , constipation, abdominal pain, pelvic pain, blood in urine or stool, dysuria, urinary frequency or urgency, memory loss, loss of consciousness, rash, abnormal bruising or bleeding, focal or generalized weakness, numbness or tingling in arms or legs, generalized arthralgias or myalgias, back pain, or night sweats. The review of systems is otherwise negative other than for that already noted above, and at least 10 systems have been reviewed. Physical Exam Physical Exam: The patient is awake, alert and oriented 3, well developed and well nourished, sits upright in bed with her head tilted and turned to the right, and in no acute distress. HEENT--PERRL, EOMI, mucous membranes and oropharynx dry. Neck--muscles mildly tensed. With head rotated and tilted to the right. Becomes mildly nauseous with manipulation of head back to and beyond midline to the left Heart--normal S1 and S2. No murmurs, rubs or gallops. Lungs--clear bilaterally, no respiratory distress, no accessory muscle use. Abdomen--normal bowel sounds and soft. Nontender. Nondistended, no hernias or masses, no organomegaly. Extremities--no cyanosis or clubbing. No edema. There are good distal pulses b/l. Dermatologic--normal skin turgor, normal color, no abnormal lymph nodes, no rash. Neurologic--cranial nerves II through XII grossly intact. Rheumatologic--normal range of motion. Psychiatric--normal affect. Results & Data Results & Data Vital Signs (Past 12 Hours) Vital Signs Temp Pulse Pulse Resp BP BP Pulse Ox 09/03/22 21:31 65 09/03/22 21:09 68 15 165/68 H 94 09/03/22 18:30 70 15 98 09/03/22 18:00 80 14 98 09/03/22 17:30 73 14 95 09/03/22 17:27 75 17 97 09/03/22 17:33 73 09/03/22 18:07 73 15 154/68 H 97 09/03/22 17:28 96 09/03/22 16:20 36.5 C 75 16 159/85 H 99 O2 Del Method 09/03/22 21:31 09/03/22 21:09 09/03/22 18:30 Room Air 09/03/22 18:00 Room Air 09/03/22 17:30 Room Air 09/03/22 17:27 Room Air 09/03/22 17:33 09/03/22 18:07 Room Air 09/03/22 17:28 Room Air 09/03/22 16:20 Room Air Laboratory Results Laboratory Results WBC 3.88 K/ul (4.8-10.8) L 09/03/22 16:40 RBC 4.51 M/uL (4.20-5.40) 09/03/22 16:40 Hgb 12.9 g/dl (12.0-16.0) 09/03/22 16:40 Hct 38.3 % (37.0-47.0) 09/03/22 16:40 MCV 84.9 fL (80.0-100.0) 09/03/22 16:40 MCH 28.6 pg (25.0-34.0) 09/03/22 16:40 MCHC 33.7 g/dL (32.0-36.0) 09/03/22 16:40 RDW Std Deviation 40.9 fL (36.4-46.3) 09/03/22 16:40 RDW Coeff of Mary 13.3 % (11.5-14.5) 09/03/22 16:40 Plt Count 178 K/uL (130-400) 09/03/22 16:40 MPV 11.9 fL (9.4-12.4) 09/03/22 16:40 Immature Gran % (Auto) 0.5 % 09/03/22 16:40 Neut % (Auto) 85.3 % 09/03/22 16:40 Lymph % (Auto) 12.4 % 09/03/22 16:40 [place] % (Auto) 1.8 % 09/03/22 16:40 Eos % (Auto) 0.0 % 09/03/22 16:40 Baso % (Auto) 0.0 % 09/03/22 16:40 Neut # (Auto) 3.31 K/uL (1.40-6.50) 09/03/22 16:40 Lymph # (Auto) 0.48 K/uL (1.2-3.4) L 09/03/22 16:40 [place] # (Auto) 0.07 K/uL (0.11-0.59) L 09/03/22 16:40 Eos # (Auto) 0.00 K/uL (0-0.50) 09/03/22 16:40 Baso # (Auto) 0.00 K/uL (0-0.2) 09/03/22 16:40 Immature Gran # (Auto) 0.02 K/uL (0.01-0.20) 09/03/22 16:40 Sodium 133 mmol/L (136-145) L 09/03/22 16:40 Potassium 3.7 mmol/L (3.5-5.1) 09/03/22 16:40 Chloride 95 mmol/L (98-107) L 09/03/22 16:40 Carbon Dioxide 29 mmol/L (21-32) 09/03/22 16:40 Anion Gap 9 (3-11) 09/03/22 16:40 BUN 25 mg/dl (6-23) H 09/03/22 16:40 Creatinine 0.87 mg/dl (0.6-1.2) 09/03/22 16:40 Est Cr Clr Drug Dosing Not Reportable 09/03/22 16:40 Est GFR ( Amer) 74.0 ml/min 09/03/22 16:40 Est GFR (Non-Af Amer) 63.8 ml/min 09/03/22 16:40 BUN/Creatinine Ratio 28.7 (10-20) H 09/03/22 16:40 Glucose 206 mg/dl (70-99(Fasting)) H 09/03/22 16:40 Calcium 10.1 mg/dl (8.6-10.3) 09/03/22 16:40 Magnesium 1.5 mg/dl (1.7-2.4) L 09/03/22 16:40 Total Bilirubin 0.8 mg/dl (0.2-1.0) 09/03/22 16:40 AST 18 U/L (13-39) 09/03/22 16:40 ALT 11 U/L (7-52) 09/03/22 16:40 Alkaline Phosphatase 72 U/L (34-104) 09/03/22 16:40 Troponin I High Sens 8.7 pg/ml (0-14) 09/03/22 16:40 Total Protein 7.8 gm/dl (6.0-8.3) 09/03/22 16:40 Albumin 4.4 gm/dl (3.4-5.0) 09/03/22 16:40 Globulin 3.4 gm/dl (2.5-4.0) 09/03/22 16:40 Albumin/Globulin Ratio 1.3 (0.9-2) 09/03/22 16:40 Lipase 23 U/L (11-82) 09/03/22 16:40 SARS-CoV-2 (PCR) NEGATIVE (Negative) 09/03/22 16:40 Influenza Type A (PCR) Negative (Neg) 09/03/22 16:40 Influenza Type B (PCR) Negative (Neg) 09/03/22 16:40 RSV (RT-PCR) Negative (Neg) 09/03/22 16:[address] 09/03/22 17:18 CT head/brain wo con CLINICAL HISTORY: dizzy, vomiting Technique: Contiguous axial CT images of the head were acquired from the base of the skull to the vertex without intravenous contrast administration. Images were viewed in brain, subdural and bone windows. Automated dose lowering techniques and/or adjustment according to patient size were utilized for this exam. Comparison: None available at the time of this dictation. Findings: The ventricles, basal cisterns, and cerebral sulci are normal. There is no acute intracranial hemorrhage or evidence of acute territorial infarction. Neither mass effect, shift of the midline structures, nor abnormal extra-axial fluid collections are shown. Imaged portions of the paranasal sinuses and mastoid air cells are clear. The orbits appear normal. There are no acute fractures of the calvaria or scalp swelling. Impression: No acute intracranial hemorrhage, no evidence of acute territorial infarction or other acute intracranial disease process. ACT 112: Negative or not required by law. Electronically signed by: Jigar Soto M.D. 09/03/2022 6:38 PM Code Status & VTE Plan Code Status Full code VTE Prophylaxis Plan VTE Prophylaxis will be ordered: Yes PG Care Time/CCT Total # of Minutes Spent Total Time Spent with Patient: Total time spent is greater than 50% in coordination of care (as documented) at patient's floor/unit and/or counseling patient: Coding Level of Care Code 05090 INT INP/OBS CARE 3/75MIN Diagnoses Stage III chronic kidney disease N18.30 History of duodenal ulcer Z87.19 Sensorineural hearing loss (SNHL) of both ears H90.3 Diabetes E11.9 Tinnitus of both ears H93.13 Acid reflux K21.9 Spinal stenosis M48.00 Intractable nausea and vomiting R11.2 Dizziness R42
[2022-09-03] MEDS ORDERED: BACLOFEN 10 MG TAB PO ONE (22:40)
[2022-09-03] MEDS ORDERED: CARBOHYDRATES FOR HYPOGLYCEMIA PO PRN (22:52)
[2022-09-03] MEDS ORDERED: traMADol HCL 50 MG TABLET PO PRN (22:52)
[2022-09-03] MEDS ORDERED: ACETAMINOPHEN 325 MG TAB PO PRN (22:52)
[2022-09-03] MEDS ORDERED: ONDANSETRON INJ 2 MG/ML 2 ML VIAL IV PRN (22:52)
[2022-09-03] MEDS ORDERED: GLUCOSE 10 TAB/TUBE PO PRN (22:52)
[2022-09-03] MEDS ORDERED: GLUCAGON FOR INJ 1 MG VIAL SQ PRN (22:52)
[2022-09-03] MEDS ORDERED: DEXTROSE 50% 50 ML SYRINGE IV PRN (22:52)
[2022-09-03] MEDS ORDERED: GLUCOSE 40% GEL 15 GM TUBE PO PRN (22:52)
--- NOTE | 2022-09-03 23:05 | CT Scan Report ---
Exam(s): CT C SPINE EXAM: CT Cervical Spine Without Intravenous Contrast CLINICAL HISTORY: Reason for exam: neck pain, dizzy and vomits when turns head left. TECHNIQUE: Axial computed tomography images of the cervical spine without intravenous contrast. CTDI is 14.34 mGy and DLP is 273.65 mGy-cm. Automated exposure control was utilized for the study. A dose lowering technique was utilized adhering to the principles of ALARA. COMPARISON: No relevant prior studies available. FINDINGS: Vertebrae: Probable osteoporosis. No acute fracture. Discs/spinal canal/neural foramina: Mild to moderate degenerative disc and facet disease, commensurate with age. Soft tissues: Unremarkable. IMPRESSION: 1. Osteoporosis and degenerative change. 2. No fracture or acute bony abnormality. Electronically signed by: Susana Arguello M.D. 09/03/22 23:04 PM
[2022-09-03 23:54] LABS: Appearance Urine Clear (Clear); Bacteria Urine Automated Negative (Negative); Bilirubin Urine Negative (Negative); Blood Urine Negative (Negative); Color Urine Yellow; Glucose Urine UA 2+ (Negative); Ketones Urine 1+ (Negative); Leukocyte Esterase Urine 1+ (Negative); Nitrite Urine Negative (Negative); Protein Urine 1+ (Negative); RBC Urine Automated 0-4 /hpf (0-4); Specific Gravity Urine 1.017 (1.000-1.030); Urobilinogen Urine Negative (Negative); pH Urine 5.5 (4.5-7.5)
--- NOTE | 2022-09-04 07:07 | XRay Report ---
KUB CLINICAL HISTORY: Vomiting. FINDINGS: 2 AP supine abdominal radiographs are correlated with abdominal CT dated 02/08/2021. There is a nonobstructed abdominal bowel gas pattern. No evidence of intraperitoneal free air is seen on the supine images. Mild fecal retention is noted throughout the colon. Suspect bilateral nephrolithiasis. Phleboliths are present in the pelvis. The skeletal structures are osteopenic. Postsurgical change i s partially visualized in the right proximal femur. Lumbosacral spondylosis is noted. IMPRESSION: 1. No acute abnormality is identified. 2. Suspect bilateral nephrolithiasis. Electronically signed by: Contreras Perez M.D. 09/04/2022 7:06 AM
[2022-09-04] MEDS: LOSARTAN POTASSIUM 25 MG TAB PO SCH (08:07)
[2022-09-04] MEDS: CHOLECALCIFEROL 1,000 UNITS 25 MCG TAB PO SCH (08:08)
[2022-09-04] MEDS: PANTOprazole 40 MG TAB PO SCH (08:08)
--- NOTE | 2022-09-04 08:29 | Electrocardiogram Report ---
Test Reason : Blood Pressure : / mmHG Vent. Rate : 073 BPM Atrial Rate : 073 BPM P-R Int : 192 ms QRS Dur : 078 ms QT Int : 412 ms P-R-T Axes : 035 -32 052 degrees QTc Int : 453 ms Normal sinus rhythm Left axis deviation Pulmonary disease pattern Moderate voltage criteria for LVH, may be normal variant Poor R wave progression, consider anterior [place] vs. lead placement vs. LVH Abnormal ECG When compared with ECG of 08-FEB-2021 17:39, No significant change was found Confirmed by Get Pena ([id number]) on 09/04/2022 8:28:51 AM Referred By: REFERRED SELF Confirmed By:Get Pena
[2022-09-04 08:39] LABS: Basophils # (auto) 0.01 K/uL (0-0.2); Basophils % (auto) 0.2 %; Hematocrit (blood only) 36.8 % (37.0-47.0); Hemoglobin 12.1 g/dl (12.0-16.0); Immature Granulocytes # (auto) 0.02 K/uL (0.01-0.20); Immature Granulocytes % (auto) 0.3 %; Lymphocytes # (auto) 1.03 K/uL (1.2-3.4); Lymphocytes % (auto) 17.2 %; Mean Corpuscular Hemoglobin 28.1 pg (25.0-34.0); Mean Corpuscular Hgb Conc 32.9 g/dL (32.0-36.0); Mean Corpuscular Volume 85.4 fL (80.0-100.0); Monocytes # (auto) 0.77 K/uL (0.11-0.59); Monocytes % (auto) 12.9 %; Neutrophils # (auto) 4.15 K/uL (1.40-6.50); Neutrophils % (auto) 69.4 %; Platelet Count 200 K/uL (130-400); RDW Coefficient of Variation 13.5 % (11.5-14.5); RDW Standard Deviation 41.7 fL (36.4-46.3); Red Blood Count 4.31 M/uL (4.20-5.40); White Blood Count 5.98 K/ul (4.8-10.8)
[2022-09-04 08:58] LABS: Estimated Average Glucose 148 mg/dl; Hemoglobin A1C 6.8 % (4.5-5.6)
[2022-09-04] MEDS ORDERED: BACLOFEN 10 MG TAB PO SCH (09:00)
[2022-09-04] MEDS: INSULIN ASPART PER UNIT CHARGE SC SCH ×4 (09:45→21:14)
[2022-09-04 10:02] LABS: Albumin Level 3.9 gm/dl (3.4-5.0); BUN Creatinine Ratio 27.9 (10-20); Calcium 9.4 mg/dl (8.6-10.3); Creatinine Clr Calc Pharmacy 39.4 ml/min; Est GFR (African American) 55.1 ml/min; Est GFR (Non-African American) 47.5 ml/min; Phosphorus 3.7 mg/dl (2.5-4.9); Potassium 3.8 mmol/L (3.5-5.1)
[2022-09-04] MEDS: methylPREDNISolone 40 MG in SYRINGE 0 ML IV SCH ×3 (12:28→22:30)
[2022-09-04] MEDS: MECLIZINE HCL 25 MG TAB PO SCH ×2 (12:29→21:14)
--- NOTE | 2022-09-04 13:16 | Hospitalist Progress Note ---
Date of Service September 04, 2022 Assessment & Plan (1) Acute labyrinthitis: Plan: Now on scheduled meclizine dosing and Solu-Medrol. Supportive care. No evidence of acute ischemic CVA (2) Stage III chronic kidney disease: Plan: Stable. Monitor intake and output. Serial labs (3) History of duodenal ulcer: Plan: Continue PPI therapy. (4) Sensorineural hearing loss (SNHL) of both ears: Plan: Chronic. Supportive care (5) Diabetes: Plan: Type II. ADA diet. Sliding scale coverage as needed. Metformin and pioglitazone are temporarily on hold (6) Tinnitus of both ears: Plan: Chronic. Supportive care (7) Acid reflux: Plan: Continue PPI therapy. Stable (8) Spinal stenosis: Plan: C-spine CT scan negative for stenosis. She does have osteoporosis and age- related findings however (9) Intractable nausea and vomiting: Plan: Appears to be due to acute labyrinthitis. Supportive care. (10) Dizziness: Plan: Due to acute labyrinthitis. Continue meclizine and Solu-Medrol. Plan Anticipate eventual discharge to home. Hopefully tomorrow, September 05. Admission and Anticipated Discharge Date Admission Date: September 03, 2022 Subjective Alert and oriented. She appears to have acute labyrinthitis with vertigo induced by head turning. No evidence of CVA seen on admission head CT scan. Review of Systems Review of Systems: Constitutional-no fever or chills ENT-no blurred vision, no double vision, no epistaxis, no sore throat Respiratory-no cough, no wheezing, no shortness of breath Cardiac-no palpitations, no chest pain, no syncope GI-no nausea, vomiting, diarrhea, melena, hematochezia -no urinary retention, no urinary incontinence, no dysuria, no hematuria Musculoskeletal-no joint pain, no muscle tenderness Skin-no bruising, no rashes, no pruritus Neuro-no isolated weakness, no paresthesia, no weakness Psych-no depression, no anxiety Physical Exam Physical Exam: General-alert and oriented x3, no fevers, no chills HEENT-head atraumatic and normocephalic, pupils equal and reactive to light, extraocular muscles intact Neck-no lymphadenopathy or thyromegaly, trachea midline Chest-clear to auscultation percussion. No rales wheezing or rhonchi Cardiac-regular rate and rhythm, normal S1 and S2 Abdomen-normal bowel sounds, nontender, no hepatosplenomegaly Extremities-no cyanosis, clubbing, or edema Neuro-cranial nerves II through XII intact, vertigo symptoms with head turning. Strength symmetrical, no focal deficits Psych-normal affect, normal mood Results & Data Results & Data Vital Signs (Past 12 Hours) Vital Signs Temp Pulse Resp BP Pulse Ox O2 Del Method 09/04/22 07:44 38 C H 66 16 135/73 93 Room Air Laboratory Results 09/04/22 08:06 09/04/22 08:06 PG Care Time/CCT Total # of Minutes Spent Total Time Spent with Patient: Total time spent is greater than 50% in coordination of care (as documented) at patient's floor/unit and/or counseling patient: Coding Level of Care Code 68997 SUB INP/OBS CARE 3/50MIN Diagnoses Acute labyrinthitis H83.09 Stage III chronic kidney disease N18.30 History of duodenal ulcer Z87.19 Sensorineural hearing loss (SNHL) of both ears H90.3 Diabetes E11.9 Tinnitus of both ears H93.13 Acid reflux K21.9 Spinal stenosis M48.00 Intractable nausea and vomiting R11.2 Dizziness R42
[2022-09-05] MEDS: methylPREDNISolone 40 MG in SYRINGE 0 ML IV SCH ×4 (04:08→21:58)
[2022-09-05 07:15] LABS: Hematocrit (blood only) 37.2 % (37.0-47.0); Hemoglobin 12.8 g/dl (12.0-16.0); Immature Granulocytes # (auto) 0.03 K/uL (0.01-0.20); Immature Granulocytes % (auto) 0.7 %; Lymphocytes # (auto) 0.54 K/uL (1.2-3.4); Lymphocytes % (auto) 12.1 %; Mean Corpuscular Hemoglobin 28.5 pg (25.0-34.0); Mean Corpuscular Hgb Conc 34.4 g/dL (32.0-36.0); Mean Corpuscular Volume 82.9 fL (80.0-100.0); Monocytes # (auto) 0.04 K/uL (0.11-0.59); Monocytes % (auto) 0.9 %; Neutrophils # (auto) 3.86 K/uL (1.40-6.50); Neutrophils % (auto) 86.3 %; Platelet Count 194 K/uL (130-400); RDW Coefficient of Variation 13.2 % (11.5-14.5); RDW Standard Deviation 39.9 fL (36.4-46.3); Red Blood Count 4.49 M/uL (4.20-5.40); White Blood Count 4.47 K/ul (4.8-10.8)
[2022-09-05 07:27] LABS: Albumin Level 3.7 gm/dl (3.4-5.0); BUN Creatinine Ratio 37.4 (10-20); Calcium 9.2 mg/dl (8.6-10.3); Creatinine Clr Calc Pharmacy 35.5 ml/min; Est GFR (African American) 48.7 ml/min; Magnesium 1.9 mg/dl (1.7-2.4); Phosphorus 3.5 mg/dl (2.5-4.9)
[2022-09-05] MEDS: CHOLECALCIFEROL 1,000 UNITS 25 MCG TAB PO SCH (08:46)
[2022-09-05] MEDS: PANTOprazole 40 MG TAB PO SCH (08:46)
[2022-09-05] MEDS: LOSARTAN POTASSIUM 25 MG TAB PO SCH (08:46)
[2022-09-05] MEDS: MECLIZINE HCL 25 MG TAB PO SCH ×3 (08:46→20:31)
[2022-09-05] MEDS: INSULIN ASPART PER UNIT CHARGE SC SCH ×4 (08:47→21:58)
[2022-09-05] MEDS ORDERED: PIOGLITAZONE HCL 15 MG TAB PO SCH (10:15)
--- NOTE | 2022-09-05 11:55 | Discharge Summary ---
Date of Service September 05, 2022 Admission HPI Per Admitting Provider The patient is a 77-year-old female with a past medical history including CKD stage III, duodenal ulcer, SNHL of bilateral ears, diabetes mellitus, right femoral shaft fracture, tinnitus, hypertension, bilateral nephrolithiasis and gallstones. She presents to the emergency department as noted above. CT scan of head was negative, KUB was negative. CT scan of the cervical spine is ordered and pending Significant laboratories: Hemoglobin 12.9, hematocrit 38.3, sodium 133, glucose 206 and magnesium 1.5 COVID-19, influenza A and B and RSV testing all negative Principal Diagnosis Suspected acute labyrinthitis with associated nausea and vomiting Discharge Exam General-alert and oriented x3, no fevers, no chills HEENT-head atraumatic and normocephalic, pupils equal and reactive to light, extraocular muscles intact Neck-no lymphadenopathy or thyromegaly, trachea midline Chest-clear to auscultation percussion. No rales wheezing or rhonchi Cardiac-regular rate and rhythm, normal S1 and S2 Abdomen-normal bowel sounds, nontender, no hepatosplenomegaly Extremities-no cyanosis, clubbing, or edema Neuro-cranial nerves II through XII intact, vertigo symptoms with head turning. Strength symmetrical, no focal deficits Psych-normal affect, normal mood Discharge Data Allergies Allergy/AdvReac Type Severity Reaction Status Date / Time adhesive tape Allergy Unknown Blisters Verified 01/04/22 14:54 aspirin Allergy Unknown BLACKS OUT Verified 01/04/22 14:54 VISION , EVERYTHING TURNS BLACK Latex, Natural Rubber Allergy Unknown BLISTERS Verified 01/04/22 14:54 cephalexin AdvReac Unknown GI upset Verified 01/04/22 14:54 ciprofloxacin AdvReac Unknown N/V Verified 01/04/22 14:54 Opioids - Morphine Analogues AdvReac Unknown N/V Verified 01/04/22 14:54 ACIDIC FOODS AdvReac Unknown TOLD TO Uncoded 01/04/22 14:54 STAY AWAY FROM ACIDIC FOODS, STOMACH ULCER Consultations 09/03/22 19:51 ED Decision to Admit Stat Ordered Studies 09/03/22 17:18 CT head/brain wo con Stat 09/03/22 20:48 CT cervical spine wo con Stat Hospital Course (1) Acute labyrinthitis: She still has some vertigo symptoms when moving her head side to side. This could resolve yet today or last for another week or so. Very difficult to tell. Nevertheless, she is stable for discharge home and will remain on scheduled dosing of meclizine and a prednisone tapering dose. She will follow-up with her primary care provider. No evidence of acute ischemic CVA (2) Stage III chronic kidney disease: Stable. Monitor intake and output. Serial labs (3) History of duodenal ulcer: Continue PPI therapy. (4) Sensorineural hearing loss (SNHL) of both ears: Chronic. Supportive care (5) Diabetes: Type II. ADA diet. Sliding scale coverage as needed. Metformin and pioglitazone are temporarily on hold (6) Tinnitus of both ears: Chronic. Supportive care (7) Acid reflux: Continue PPI therapy. Stable (8) Spinal stenosis: C-spine CT scan negative for stenosis. She does have osteoporosis and age- related findings however (9) Intractable nausea and vomiting: Appears to be due to acute labyrinthitis. Supportive care. Resolved (10) Dizziness: Due to acute labyrinthitis. Treated while hospitalized with meclizine and Solu- Medrol. Plan Home today, September 05, on scheduled dose of meclizine along with a prednisone tapering dose. Total Time Total Time Spent Total Time Spent (In Minutes): 40 minutes Discharge Plan Discharge Items Patient Disposition: Home - Self-Care Reason For Visit: INTRACTABLE NAUSEA/VOMITING, NECK PAIN Discharge Diagnosis: Acute labyrinthitis with associated nausea and vomiting Non-emergency contact: Primary Care Provider Call non-emergency contact if: you have any medication questions and your symptoms worsen Follow-up/Referrals: Jovanna Gonzalez CRNP [Primary Care Provider] - Diet: Carb Consistent or DM2 and Heart Healthy Addtl Attending Provider Instructions: Take meclizine 3 times daily until symptoms completely resolved. Take prednisone in a tapering dose fashion as directed Pending Studies at Discharge: No Stand-Alone Forms: My [employer], Smoking Cessation Medications and DC Order Prescriptions: New meclizine 25 mg Tablet 25 mg PO TID Qty: 30 0RF prednisone 10 mg tablet See Rx Instructions .ROUTE .COMPLEX Qty: 12 0RF Rx Instructions: 10 mg orally 3 times a day for 2 days, then 10 mg twice a day for 2 days, then 10 mg once a day for 2 days, then stop Continued (DME) wheelchair device See Dose Instructions .ROUTE .MEDSUPPLY Qty: 1 0RF Dose Instruction: As directed Rx Instructions: standard wheelchair with adjustable stirrups [id number] losartan 25 mg tablet 25 mg PO DAILY Qty: 90 3RF tramadol 50 mg tablet 50 mg PO BID PRN (Reason: pain) Qty: 40 0RF (DME) OneTouch Ultra Test Strip See Rx Instructions .Route Qty: 100 3RF Rx Instructions: test twice daily cholecalciferol (vitamin D3) [Vitamin D3] 25 mcg (1,000 unit) Tablet 1,000 mcg PO DAILY Collagen 1,000 mg PO DAILY Patient Comments: TABLET 1000 MG pioglitazone-metformin [Actoplus MET] 15-500 mg tablet 1 tab PO BID pantoprazole 40 mg tablet,delayed release (DR/EC) 40 mg PO DAILY Krames/Other Patient Handouts: Managing Type 2 Diabetes Admission Data Admit Date/Time: 09/03/22 21:56 Attending Provider: Herve Wolf Admit Provider: En Pak Primary Care Provider: Jovanna Gonzalez Other Providers: En Pak Coding Level of Care Code 88802 INP/OBS DISCH >30 MIN Diagnoses Acute labyrinthitis H83.09 Stage III chronic kidney disease N18.30 History of duodenal ulcer Z87.19 Sensorineural hearing loss (SNHL) of both ears H90.3 Diabetes E11.9 Tinnitus of both ears H93.13 Acid reflux K21.9 Spinal stenosis M48.00 Intractable nausea and vomiting R11.2 Dizziness R42
[2022-09-05] MEDS: metFORMIN HCL 500 MG TAB PO SCH ×2 (13:16→17:57)
--- NOTE | 2022-09-05 16:02 | Hospitalist Progress Note ---
Date of Service September 05, 2022 Assessment & Plan (1) Acute labyrinthitis: Plan: She still has some vertigo symptoms when moving her head side to side. This could resolve yet today or last for another week or so. Very difficult to tell. Nevertheless, she is stable for discharge home but her refuses to take her home. Case management advised that she will need placement. They have requested [facility]. No evidence of acute ischemic CVA (2) Stage III chronic kidney disease: Plan: Stable. Monitor intake and output. Serial labs (3) History of duodenal ulcer: Plan: Continue PPI therapy. (4) Sensorineural hearing loss (SNHL) of both ears: Plan: Chronic. Supportive care (5) Diabetes: Plan: Type II. ADA diet. Sliding scale coverage as needed. Metformin and pioglitazone are temporarily on hold (6) Tinnitus of both ears: Plan: Chronic. Supportive care (7) Acid reflux: Plan: Continue PPI therapy. Stable (8) Spinal stenosis: Plan: C-spine CT scan negative for stenosis. She does have osteoporosis and age- related findings however (9) Intractable nausea and vomiting: Plan: Appears to be due to acute labyrinthitis. Supportive care. Resolved (10) Dizziness: Plan: Due to acute labyrinthitis. Treated while hospitalized with meclizine and Solu- Medrol. We will continue meclizine and prednisone tapering dose at discharge Plan refuses to take the patient home. SNF or IPR placement pending. Admission and Anticipated Discharge Date Admission Date: September 03, 2022 Subjective She continues to have some vertigo symptoms when turning her head from side to side. She remains on meclizine and Solu-Medrol. Her refuses to take her home. She will need placement in SNF or IPR. They are requesting [facility]. Case management advised. Review of Systems Review of Systems: Constitutional-no fever or chills ENT-no blurred vision, no double vision, no epistaxis, no sore throat Respiratory-no cough, no wheezing, no shortness of breath Cardiac-no palpitations, no chest pain, no syncope GI-no nausea, vomiting, diarrhea, melena, hematochezia -no urinary retention, no urinary incontinence, no dysuria, no hematuria Musculoskeletal-no joint pain, no muscle tenderness Skin-no bruising, no rashes, no pruritus Neuro-no isolated weakness, no paresthesia, no weakness. She does have vertigo when she turns her head from side to side Psych-no depression, no anxiety Physical Exam Physical Exam: General-alert and oriented x3, no fevers, no chills HEENT-head atraumatic and normocephalic, pupils equal and reactive to light, extraocular muscles intact Neck-no lymphadenopathy or thyromegaly, trachea midline Chest-clear to auscultation percussion. No rales wheezing or rhonchi Cardiac-regular rate and rhythm, normal S1 and S2 Abdomen-normal bowel sounds, nontender, no hepatosplenomegaly Extremities-no cyanosis, clubbing, or edema Neuro-cranial nerves II through XII intact, vertigo symptoms with head turning. Strength symmetrical, no focal deficits Psych-normal affect, normal mood Results & Data Results & Data Vital Signs (Past 12 Hours) Vital Signs Temp Pulse Resp BP Pulse Ox O2 Del Method 09/05/22 15:13 37.1 C 65 16 145/78 H 99 Room Air 09/05/22 07:49 36.4 C L 62 18 166/70 H 92 Room Air Laboratory Results 09/05/22 06:35 09/05/22 06:35 PG Care Time/CCT Total # of Minutes Spent Total Time Spent with Patient: Total time spent is greater than 50% in coordination of care (as documented) at patient's floor/unit and/or counseling patient: Coding Level of Care Code 08773 SUB INP/OBS CARE 3/50MIN Diagnoses Acute labyrinthitis H83.09 Stage III chronic kidney disease N18.30 History of duodenal ulcer Z87.19 Sensorineural hearing loss (SNHL) of both ears H90.3 Diabetes E11.9 Tinnitus of both ears H93.13 Acid reflux K21.9 Spinal stenosis M48.00 Intractable nausea and vomiting R11.2 Dizziness R42
[2022-09-06] MEDS: methylPREDNISolone 40 MG in SYRINGE 0 ML IV SCH ×2 (05:44→17:36)
[2022-09-06 08:01] LABS: Hematocrit (blood only) 41.8 % (37.0-47.0); Hemoglobin 14.4 g/dl (12.0-16.0); Immature Granulocytes # (auto) 0.06 K/uL (0.01-0.20); Immature Granulocytes % (auto) 0.8 %; Lymphocytes # (auto) 1.08 K/uL (1.2-3.4); Lymphocytes % (auto) 13.8 %; Mean Corpuscular Hemoglobin 28.5 pg (25.0-34.0); Mean Corpuscular Hgb Conc 34.4 g/dL (32.0-36.0); Mean Corpuscular Volume 82.6 fL (80.0-100.0); Mean Platelet Volume 12.4 fL (9.4-12.4); Monocytes # (auto) 0.32 K/uL (0.11-0.59); Monocytes % (auto) 4.1 %; Neutrophils # (auto) 6.39 K/uL (1.40-6.50); Neutrophils % (auto) 81.3 %; Platelet Count 249 K/uL (130-400); RDW Coefficient of Variation 13.3 % (11.5-14.5); Red Blood Count 5.06 M/uL (4.20-5.40); White Blood Count 7.85 K/ul (4.8-10.8)
[2022-09-06 08:30] LABS: BUN Creatinine Ratio 44.1 (10-20); Calcium 9.6 mg/dl (8.6-10.3); Creatinine Clr Calc Pharmacy 30.1 ml/min; Est GFR (African American) 39.9 ml/min; Est GFR (Non-African American) 34.4 ml/min; Phosphorus 3.3 mg/dl (2.5-4.9); Potassium 4.3 mmol/L (3.5-5.1)
[2022-09-06] MEDS: metFORMIN HCL 500 MG TAB PO SCH (08:32)
[2022-09-06] MEDS: CHOLECALCIFEROL 1,000 UNITS 25 MCG TAB PO SCH (08:32)
[2022-09-06] MEDS: LOSARTAN POTASSIUM 25 MG TAB PO SCH (08:33)
[2022-09-06] MEDS: PANTOprazole 40 MG TAB PO SCH (08:34)
[2022-09-06] MEDS: MECLIZINE HCL 25 MG TAB PO SCH ×3 (08:34→20:16)
[2022-09-06] MEDS: INSULIN ASPART PER UNIT CHARGE SC SCH ×4 (08:48→21:10)
--- NOTE | 2022-09-06 11:54 | Magnetic Resonance Report ---
MRI OF THE BRAIN WITHOUT CONTRAST CLINICAL HISTORY: Vertigo. COMPARISON STUDY: Head CT September 03, 2022. TECHNIQUE: Utilizing a 1.5 Sugey magnet and dedicated coil, multiplanar, multiecho imaging of the bra in was performed without IV contrast. FINDINGS: Note is made of a small 5 mm focus of restricted diffusion within the left middle cerebella r peduncle shown on axial diffusion-weighted sequence image 6 of . This is hypointense on the ADC m ap and there is mild corresponding increased signal on the FLAIR and T2-weighted sequences. This favo rs a small acute infarct. A 1.1 x 0.9 cm T2 hyperintense focus within the right middle cerebellar ped uncle favors an old infarct. Demyelinating disease could appear similar but is considered less likely . Ventricular system is unremarkable. Basal cisterns are patent. There are no extra-axial collections . White matter T2 hyperintense foci suggest mild small vessel disease. Diminished signal intensity wi thin the bilateral basal ganglia is due to calcification/mineralization shown on head CT. Calvarial s ignal is normal. There is no acute intracranial hemorrhage, midline shift or mass effect. IMPRESSION: 1. Small 5 mm focus restricted diffusion within the left middle cerebellar peduncle. Mild associated signal abnormality. This is nonspecific but favors a small acute infarct. Demyelinating disease could appear similar although is considered less likely. 2. 1.1 x 0.9 cm T2 hyperintense focus within the right middle cerebellar peduncle which is chronic. T his may reflect an old infarct or less likely an old plaque. 3. No acute hemorrhage. ACT 112: Negative or not required by law. Electronically signed by: Miky Go M.D. 09/06/2022 11:53 AM
--- NOTE | 2022-09-06 15:12 | Hospitalist Progress Note ---
Date of Service September 06, 2022 Assessment & Plan (1) Acute labyrinthitis: Plan: Ruled out. Her symptoms are probably due to ischemic CVA in the left cerebellar region. Meclizine and Solu-Medrol have been discontinued. (2) Stage III chronic kidney disease: Plan: Stable. Monitor intake and output. Serial labs (3) History of duodenal ulcer: Plan: Continue PPI therapy. (4) Sensorineural hearing loss (SNHL) of both ears: Plan: Chronic. Supportive care (5) Diabetes: Plan: Type II. ADA diet. Sliding scale coverage as needed. Metformin and pioglitazone are temporarily on hold (6) Tinnitus of both ears: Plan: Chronic. Supportive care (7) Acid reflux: Plan: Continue PPI therapy. Stable (8) Spinal stenosis: Plan: C-spine CT scan negative for stenosis. She does have osteoporosis and age- related findings however (9) Intractable nausea and vomiting: Plan: Present on admission. Probably due to ischemic cerebellar CVA. Supportive care. Resolved (10) Dizziness: Plan: Due to ischemic left cerebellar CVA and not labyrinthitis. Meclizine and Solu- Medrol have been discontinued. Plavix has been ordered. She is allergic to aspirin. 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 She will be started on Plavix since she is allergic to aspirin. Neurology consultation requested. Will obtain head and neck CTA. This probably accounts for her symptoms previously thought to be due to acute labyrinthitis. Meclizine and Solu-Medrol have been discontinued Plan SNF or IPR placement pending. Admission and Anticipated Discharge Date Admission Date: September 03, 2022 Subjective Alert and oriented. Brain MRI was not apparently done on admission and was done today. There is evidence of an ischemic left cerebellar CVA which is probably causing her current symptoms. Meclizine and Ctoi-Mkclse-gkzggcangwxl. She is allergic to aspirin and she has been started on Plavix. Neurology consultation requested. Will obtain head and neck CTA Review of Systems Review of Systems: Constitutional-no fever or chills ENT-no blurred vision, no double vision, no epistaxis, no sore throat Respiratory-no cough, no wheezing, no shortness of breath Cardiac-no palpitations, no chest pain, no syncope GI-no nausea, vomiting, diarrhea, melena, hematochezia -no urinary retention, no urinary incontinence, no dysuria, no hematuria Musculoskeletal-no joint pain, no muscle tenderness Skin-no bruising, no rashes, no pruritus Neuro-no isolated weakness, no paresthesia, no weakness. She does have vertigo when she turns her head from side to side Psych-no depression, no anxiety Physical Exam Physical Exam: General-alert and oriented x3, no fevers, no chills HEENT-head atraumatic and normocephalic, pupils equal and reactive to light, extraocular muscles intact Neck-no lymphadenopathy or thyromegaly, trachea midline Chest-clear to auscultation percussion. No rales wheezing or rhonchi Cardiac-regular rate and rhythm, normal S1 and S2 Abdomen-normal bowel sounds, nontender, no hepatosplenomegaly Extremities-no cyanosis, clubbing, or edema Neuro-cranial nerves II through XII intact, vertigo symptoms with head turning. Strength symmetrical, no focal deficits Psych-normal affect, normal mood Results & Data Results & Data Vital Signs (Past 12 Hours) Vital Signs Temp Pulse Resp BP Pulse Ox O2 Del Method 09/06/22 07:14 36.8 C 62 18 153/71 H 95 Room Air Laboratory Results 09/06/22 07:27 09/06/22 07:27 PG Care Time/CCT Total # of Minutes Spent Total Time Spent with Patient: Total time spent is greater than 50% in coordination of care (as documented) at patient's floor/unit and/or counseling patient: Coding Level of Care Code 72414 SUB INP/OBS CARE 3/50MIN Diagnoses Acute labyrinthitis H83.09 Stage III chronic kidney disease N18.30 History of duodenal ulcer Z87.19 Sensorineural hearing loss (SNHL) of both ears H90.3 Diabetes E11.9 Tinnitus of both ears H93.13 Acid reflux K21.9 Spinal stenosis M48.00 Intractable nausea and vomiting R11.2 Dizziness R42 CVA (cerebral vascular accident) I63.9
[2022-09-06] MEDS: CLOPIDOGREL BISULFATE 75 MG TAB PO SCH (15:54)
[2022-09-06] MEDS ORDERED: OPTIRAY 320 500ml IV ONE (16:19)
--- NOTE | 2022-09-06 16:38 | CT Scan Report ---
CT angio head w con, CT angio neck with con CLINICAL HISTORY: 77 years-old Female with cerebellar CVA. Acute strokelike symptoms COMPARISON STUDY: Brain MRI of same day, head CT 4 2022 TECHNIQUE: Following the IV administration of 118 cc of Optiray, CT angiogram of the head and neck wa s performed from the skull base to the vertex. Images are reviewed in the axial, sagittal, and pool l planes. 3-D MIPS images are created and assessed. IV contrast was administered without complication . All measurements were obtained according to NASCET criteria. A dose lowering technique was utilized adhering to the principles of ALARA. CT DOSE: 544.24 mGy.cm FINDINGS: CT ANGIOGRAM OF THE HEAD AND NECK: Four-vessel morphology of the thoracic aortic arch. No pulmonary emboli identified. There is patency of the innominate and imaged subclavian arteries. The common carotid arteries are patent. Moderate at herosclerotic plaque of the carotid bulbs and proximal cervical segments of the internal carotid alcides fortunato, left greater than right results in less than 50% stenosis bilaterally. Bilateral anterior and m iddle cerebral arteries are also patent. Dominant right vertebral artery is widely patent. Developmen tally diminutive left vertebral artery originates from the thoracic aortic arch and terminates into t he left PICA. The basilar and posterior cerebral arteries are patent with there is at least mild narr owing noted within the distal right posterior cerebral artery. There is no aneurysm, high-grade steno sis, or proximal branch occlusion identified. Dural sinuses appear patent. No abnormal intracranial enhancement. Involutional changes with chronic microvascular ischemic diseas e. Senescent calcifications of the lentiform nuclei. Chronic appearing infarcts in the right middle c erebellar peduncle. Lung apices appear clear. No pneumothorax. 8 mm hypodense left thyroid nodule. De generative changes of the cervical spine. IMPRESSION: 1. The subcentimeter acute infarct within the left middle cerebellar peduncle is not visualized by CT . 2. No aneurysm, dissection, high-grade stenosis or arterial occlusion identified. 3. Moderate atherosclerotic plaque of the carotid bulbs and proximal cervical segments of the interna l carotid arteries results in less than 50% stenosis bilaterally. ACT 112: Negative or not required by law. The above report was generated using voice recognition software. It may contain grammatical, syntax o r spelling errors. Electronically signed by: Macario Mccarthy M.D. 09/06/2022 4:36 PM
--- NOTE | 2022-09-06 17:49 | Neurology Consultation ---
Date of Consultation September 06, 2022 Assessment & Plan (1) CVA (cerebral vascular accident): Impression: The patient had sudden onset vertigo, nausea, vomiting, intermittent double vision, nystagmus, and gait disturbance. Initially, such symptoms were considered due to labyrinthitis but following brain MRI was consistent with acute, small ischemic stroke, involving left middle cerebellar peduncle. The patient has been improving clinically. She is started on Plavix. Blood pressure control has been well. CT angiogram of head and neck were unremarkable. Further stroke work-up is pending. Recommendations/plan: I agree with keeping patient on Plavix 75 mg daily for secondary stroke prevention. Fasting lipid panel. We will start patient on statin as needed. Goal LDL level is lower than 70. There is no indication for permissive hypertension anymore. Regular management no hypertension. Management of diabetes mellitus as hyperglycemia might worsen stroke prognosis and will increase future stroke risks. Transthoracic echocardiogram to evaluate for intracardiac embolic source. Physical therapy and Occupational Therapy evaluations. The patient will continue using meclizine, maximum for a week duration. There is no indication for steroid use. If the patient stays stable, then she can be discharged home in next 24 to 48 hours, after completing recommended stroke work-up. I will contact with [facility] [address] neurology, to set up a follow-up appointment. (2) Diabetes: Plan As a seen above. Thank you for the consultation. History of Present Illness Reason for Consultation: CVA Requesting Physician: Herve Wolf MD Attending Physician: Herve Wolf MD History of Present Illness The patient is a 77-year-old female, who began experiencing sudden onset dizziness, vertigo, nausea, vomiting, intermittent double vision and unsteady gait, and was brought to emergency department on 09/03/2022. There is no additional neurological symptoms, and initial impression was labyrinthitis, and the patient was started on meclizine with steroid. Her symptoms has been improving, but she was still symptomatic, and brain MRI was done, which showed acute, small, left middle cerebellar peduncle ischemic stroke. There was also chronic, similar sized stroke on the contralateral side. The patient was started on Plavix. Blood pressure control has been well. The patient does not remember having stroke symptoms in the past. CT angiogram of head and neck have been completed, which did not show any hemodynamically significant stenosis or occlusion of neck and intracranial large arteries. The patient has multiple stroke risk factors including diabetes mellitus. His blood pressure control has been well. The patient is currently can ambulate with walker which is at baseline for her. She has been eating without nausea and vomiting. Cardiac rhythm monitoring has been showing sinus rhythm. Echocardiogram is pending. I have reviewed the patient's chart including imaging studies and visualized them personally. I have discussed the case with the patient and family, and I have answered their questions in detail. Allergies Allergy/AdvReac Type Severity Reaction Status Date / Time adhesive tape Allergy Unknown Blisters Verified 01/04/22 14:54 aspirin Allergy Unknown BLACKS OUT Verified 01/04/22 14:54 VISION , EVERYTHING TURNS BLACK Latex, Natural Rubber Allergy Unknown BLISTERS Verified 01/04/22 14:54 cephalexin AdvReac Unknown GI upset Verified 01/04/22 14:54 ciprofloxacin AdvReac Unknown N/V Verified 01/04/22 14:54 Opioids - Morphine Analogues AdvReac Unknown N/V Verified 01/04/22 14:54 ACIDIC FOODS AdvReac Unknown TOLD TO Uncoded 01/04/22 14:54 STAY AWAY FROM ACIDIC FOODS, STOMACH ULCER Home Medications Medication Instructions Recorded Confirmed Type wheelchair #1 ea 12/26/09/03/22 Rx cholecalciferol (vitamin D3) 25 1,000 mcg PO DAILY 03/11/20 09/03/22 History mcg (1,000 unit) tablet (Vitamin D3) Collagen 1,000 mg PO DAILY 03/30/21 09/03/22 History blood sugar diagnostic (OneTouch #100 ea 07/06/21 09/03/22 Rx Ultra Test strips) losartan 25 mg tablet 25 mg PO DAILY #90 tabs 02/27/22 09/03/22 Rx tramadol 50 mg tablet 50 mg PO BID PRN pain #40 tabs 08/19/22 09/03/22 Rx pantoprazole 40 mg tablet,delayed 40 mg PO DAILY 09/03/22 09/03/22 History release pioglitazone 15 mg-metformin 500 1 tab PO BID 09/03/22 09/03/22 History mg tablet meclizine 25 mg tablet 25 mg PO TID #30 tabs 09/05/22 Rx prednisone 10 mg tablet See Rx Instructions .Route 09/05/22 Rx .COMPLEX #12 tabs Patient History Medical History Abdominal pain Acid reflux Arthritis CKD (chronic kidney disease) stage 2, GFR 60-89 ml/min Duodenal ulcer Gastritis Multiple renal calculi NO PROBLEMS WITH CURRENTLY - UPCOMING F/U X RAY Peptic ulcer disease Renal calculi Spinal stenosis Type II diabetes mellitus Varicose veins of both lower extremities Surgical History History of colonoscopy History of hip surgery right hip/hardware in place -hx femur fx History of hysterectomy History of surgery Broken right femur repair History of varicose vein stripping BOTH LEGS X 3 Family History Mother Diabetes Cardiac disorder Stroke Father Cardiac disorder Stroke Grandmother (Maternal) Family history of colon cancer Other Family history non-contributory No family history of adverse response to anesthesia No family history of bleeding disorder Prostate cancer Denies family history of Ovarian cancer Myocardial infarction Breast cancer Colorectal cancer Social History Smoking Status: Never smoker Second Hand Exposure: No; Hx Alcohol Use: No Hx Substance Use: No Preferred Language: Kyrgyz Communication Ability: Effective Communication Ability Comment: PHONE INTERVIEW WITH KAILA BUSTAMANTE APPROVED Visual Impairment: No Limitations Hearing Ability: Normal Metal 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 Required: No Beliefs That Will Affect Care: None marital status: Current Living Situation: Spouse Current Living Situation Comment: Lives at home with 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 HENT: Normal exam with inspection. CV: Hearth rhythm is regular. Neck: Supple, no carotid bruits. Lungs: Non-labored and comfortable breathing. Abdomen: Soft, non-tender, non-distended. Skin: No rash or ecchymosis. Extremities: No edema or cyanosis NEUROLOGICAL EXAMINATION: Mental Status: Alert and oriented to place, person and time. Cranial Nerves: II-XII are intact. left gaze induced horizontal nystagmus is not iced Funduscopy: Normal looking optic discs. Motor: 5-/5 in all extremities without asymmetry. Tone: Normal without spasticity or rigidity. Sensory: Intact grossly with decreased vibratory sensation in feet. Coordination: No dysmetria with FTN testing. Speech: Fluent. Comprehension is intact. Gait: Can ambulate with walker. This is somewhat baseline for her. Musculoskeletal: Normal muscle bulk, no atrophy. DTRs: 2+ in upper extremities, and 1+ in lower extremities symmetrically. Plantar flexors bilaterally downgoing. Results & Data Vital Signs (Past 12 Hours) Vital Signs Temp Pulse Resp BP Pulse Ox O2 Del Method 09/06/22 15:13 37.0 C 67 16 136/73 98 Room Air 09/06/22 07:14 36.8 C 62 18 153/71 H 95 Room Air Laboratory Results Laboratory Results - last 24 hr 09/05/22 09/06/22 09/06/22 20:43 07:27 07:27 WBC 7.85 RBC 5.06 Hgb 14.4 Hct 41.8 MCV 82.6 MCH 28.5 MCHC 34.4 RDW Std Deviation 40.0 RDW Coeff of Mary 13.3 Plt Count 249 MPV 12.4 Immature Gran % (Auto) 0.8 Neut % (Auto) 81.3 Lymph % (Auto) 13.8 [place] % (Auto) 4.1 Eos % (Auto) 0.0 Baso % (Auto) 0.0 Neut # (Auto) 6.39 Lymph # (Auto) 1.08 L [place] # (Auto) 0.32 Eos # (Auto) 0.00 Baso # (Auto) 0.00 Immature Gran # (Auto) 0.06 Sodium 130 L Potassium 4.3 Chloride 94 L Carbon Dioxide 26 Anion Gap 10 BUN 64 H Creatinine 1.45 H Est Cr Clr Drug Dosing 30.1 Est GFR ( Amer) 39.9 Est GFR (Non-Af Amer) 34.4 BUN/Creatinine Ratio 44.1 H Glucose 225 H POC Glucose 210 H Calcium 9.6 Phosphorus 3.3 Magnesium 2.0 Albumin 4.0 09/06/22 09/06/22 09/06/22 08:05 12:10 17:07 WBC RBC Hgb Hct MCV MCH MCHC RDW Std Deviation RDW Coeff of Mary Plt Count MPV Immature Gran % (Auto) Neut % (Auto) Lymph % (Auto) [place] % (Auto) Eos % (Auto) Baso % (Auto) Neut # (Auto) Lymph # (Auto) [place] # (Auto) Eos # (Auto) Baso # (Auto) Immature Gran # (Auto) Sodium Potassium Chloride Carbon Dioxide Anion Gap BUN Creatinine Est Cr Clr Drug Dosing Est GFR ( Amer) Est GFR (Non-Af Amer) BUN/Creatinine Ratio Glucose POC Glucose 211 H 263 H 169 H Calcium Phosphorus Magnesium Albumin Diagnostic Findings Head CT 09/03/22 17:18 CT head/brain wo con CLINICAL HISTORY: dizzy, vomiting Technique: Contiguous axial CT images of the head were acquired from the base of the skull to the vertex without intravenous contrast administration. Images were viewed in brain, subdural and bone windows. Automated dose lowering techniques and/or adjustment according to patient size were utilized for this exam. Comparison: None available at the time of this dictation. Findings: The ventricles, basal cisterns, and cerebral sulci are normal. There is no acute intracranial hemorrhage or evidence of acute territorial infarction. Neither mass effect, shift of the midline structures, nor abnormal extra-axial fluid collections are shown. Imaged portions of the paranasal sinuses and mastoid air cells are clear. The orbits appear normal. There are no acute fractures of the calvaria or scalp swelling. Impression: No acute intracranial hemorrhage, no evidence of acute territorial infarction or other acute intracranial disease process. ACT 112: Negative or not required by law. Electronically signed by: Jigar Soto M.D. 09/03/2022 6:38 PM KUB X-Ray 09/03/22 19:54 KUB CLINICAL HISTORY: Vomiting. FINDINGS: 2 AP supine abdominal radiographs are correlated with abdominal CT dated 02/08/2021. There is a nonobstructed abdominal bowel gas pattern. No evidence of intraperitoneal free air is seen on the supine images. Mild fecal retention is noted throughout the colon. Suspect bilateral nephrolithiasis. Phleboliths are present in the pelvis. The skeletal structures are osteopenic. Postsurgical change is partially visualized in the right proximal femur. Lumbosacral spondylosis is noted. IMPRESSION: 1. No acute abnormality is identified. 2. Suspect bilateral nephrolithiasis. Electronically signed by: Contreras Perez M.D. 09/04/2022 7:[address] 09/03/22 20:48 Exam(s): CT C SPINE EXAM: CT Cervical Spine Without Intravenous Contrast CLINICAL HISTORY: Reason for exam: neck pain, dizzy and vomits when turns head left. TECHNIQUE: Axial computed tomography images of the cervical spine without intravenous contrast. CTDI is 14.34 mGy and DLP is 273.65 mGy-cm. Automated exposure control was utilized for the study. A dose lowering technique was utilized adhering to the principles of ALARA. COMPARISON: No relevant prior studies available. FINDINGS: Vertebrae: Probable osteoporosis. No acute fracture. Discs/spinal canal/neural foramina: Mild to moderate degenerative disc and facet disease, commensurate with age. Soft tissues: Unremarkable. IMPRESSION: 1. Osteoporosis and degenerative change. 2. No fracture or acute bony abnormality. Electronically signed by: Susana Arguello M.D. 09/03/22 23:04 PM Brain MRI 09/06/22 09:00 MRI OF THE BRAIN WITHOUT CONTRAST CLINICAL HISTORY: Vertigo. COMPARISON STUDY: Head CT September 03, 2022. TECHNIQUE: Utilizing a 1.5 Sugey magnet and dedicated coil, multiplanar, multiecho imaging of the brain was performed without IV contrast. FINDINGS: Note is made of a small 5 mm focus of restricted diffusion within the left middle cerebellar peduncle shown on axial diffusion-weighted sequence image 6 of . This is hypointense on the ADC map and there is mild corresponding increased signal on the FLAIR and T2-weighted sequences. This favors a small acute infarct. A 1.1 x 0.9 cm T2 hyperintense focus within the right middle cerebellar peduncle favors an old infarct. Demyelinating disease could appear similar but is considered less likely. Ventricular system is unremarkable. Basal cisterns are patent. There are no extra-axial collections. White matter T2 hyperintense foci suggest mild small vessel disease. Diminished signal intensity within the bilateral basal ganglia is due to calcification/mineralization shown on head CT. Calvarial signal is normal. There is no acute intracranial hemorrhage, midline shift or mass effect. IMPRESSION: 1. Small 5 mm focus restricted diffusion within the left middle cerebellar peduncle. Mild associated signal abnormality. This is nonspecific but favors a small acute infarct. Demyelinating disease could appear similar although is considered less likely. 2. 1.1 x 0.9 cm T2 hyperintense focus within the right middle cerebellar peduncle which is chronic. This may reflect an old infarct or less likely an old plaque. 3. No acute hemorrhage. ACT 112: Negative or not required by law. Electronically signed by: Miky Go M.D. 09/06/2022 11:53 AM Head CTA 09/06/22 15:06 CT angio head w con, CT angio neck with con CLINICAL HISTORY: 77 years-old Female with cerebellar CVA. Acute strokelike symptoms COMPARISON STUDY: Brain MRI of same day, head CT 2022 TECHNIQUE: Following the IV administration of 118 cc of Optiray, CT angiogram of the head and neck was performed from the skull base to the vertex. Images are reviewed in the axial, sagittal, and coronal planes. 3-D MIPS images are created and assessed. IV contrast was administered without complication. All measurements were obtained according to NASCET criteria. A dose lowering technique was utilized adhering to the principles of ALARA. CT DOSE: 544.24 mGy.cm FINDINGS: CT ANGIOGRAM OF THE HEAD AND NECK: Four-vessel morphology of the thoracic aortic arch. No pulmonary emboli identified. There is patency of the innominate and imaged subclavian arteries. The common carotid arteries are patent. Moderate atherosclerotic plaque of the carotid bulbs and proximal cervical segments of the internal carotid arteries, left greater than right results in less than 50% stenosis bilaterally. Bilateral anterior and middle cerebral arteries are also patent. Dominant right vertebral artery is widely patent. Developmentally diminutive left vertebral artery originates from the thoracic aortic arch and terminates into the left PICA. The basilar and posterior cerebral arteries are patent with there is at least mild narrowing noted within the distal right posterior cerebral artery. There is no aneurysm, high-grade stenosis, or proximal branch occlusion identified. Dural sinuses appear patent. No abnormal intracranial enhancement. Involutional changes with chronic microvascular ischemic disease. Senescent calcifications of the lentiform nuclei. Chronic appearing infarcts in the right middle cerebellar peduncle. Lung apices appear clear. No pneumothorax. 8 mm hypodense left thyroid nodule. D egenerative changes of the cervical spine. IMPRESSION: 1. The subcentimeter acute infarct within the left middle cerebellar peduncle is not visualized by CT. 2. No aneurysm, dissection, high-grade stenosis or arterial occlusion identified. 3. Moderate atherosclerotic plaque of the carotid bulbs and proximal cervical segments of the internal carotid arteries results in less than 50% stenosis bilaterally. ACT 112: Negative or not required by law. The above report was generated using voice recognition software. It may contain grammatical, syntax or spelling errors. Electronically signed by: Macario Mccarthy M.D. 09/06/2022 4:36 PM Neck CTA 09/06/22 15:06 CT angio head w con, CT angio neck with con CLINICAL HISTORY: 77 years-old Female with cerebellar CVA. Acute strokelike symptoms COMPARISON STUDY: Brain MRI of same day, head CT 2022 TECHNIQUE: Following the IV administration of 118 cc of Optiray, CT angiogram of the head and neck was performed from the skull base to the vertex. Images are reviewed in the axial, sagittal, and coronal planes. 3-D MIPS images are created and assessed. IV contrast was administered without complication. All measurements were obtained according to NASCET criteria. A dose lowering technique was utilized adhering to the principles of ALARA. CT DOSE: 544.24 mGy.cm FINDINGS: CT ANGIOGRAM OF THE HEAD AND NECK: Four-vessel morphology of the thoracic aortic arch. No pulmonary emboli identified. There is patency of the innominate and imaged subclavian arteries. The common carotid arteries are patent. Moderate atherosclerotic plaque of the carotid bulbs and proximal cervical segments of the internal carotid arteries, left greater than right results in less than 50% stenosis bilaterally. Bilateral anterior and middle cerebral arteries are also patent. Dominant right vertebral artery is widely patent. Developmentally diminutive left vertebral artery originates from the thoracic aortic arch and terminates into the left PICA. The basilar and posterior cerebral arteries are patent with there is at least mild narrowing noted within the distal right posterior cerebral artery. There is no aneurysm, high-grade stenosis, or proximal branch occlusion identified. Dural sinuses appear patent. No abnormal intracranial enhancement. Involutional changes with chronic microvascular ischemic disease. Senescent calcifications of the lentiform nuclei. Chronic appearing infarcts in the right middle cerebellar peduncle. Lung apices appear clear. No pneumothorax. 8 mm hypodense left thyroid nodule. Degenerative changes of the cervical spine.
[2022-09-06] MEDS: DOCUSATE SODIUM 100 MG CAP PO PRN (20:16)
[2022-09-07] MEDS: methylPREDNISolone 40 MG in SYRINGE 0 ML IV SCH (05:13)
[2022-09-07] MEDS: INSULIN ASPART PER UNIT CHARGE SC SCH ×4 (08:38→21:29)
[2022-09-07] MEDS: MECLIZINE HCL 25 MG TAB PO SCH (08:43)
[2022-09-07] MEDS: CLOPIDOGREL BISULFATE 75 MG TAB PO SCH (08:44)
[2022-09-07] MEDS: CHOLECALCIFEROL 1,000 UNITS 25 MCG TAB PO SCH (08:44)
[2022-09-07] MEDS: PANTOprazole 40 MG TAB PO SCH (08:44)
[2022-09-07] MEDS: LOSARTAN POTASSIUM 25 MG TAB PO SCH (08:44)
[2022-09-07] MEDS: ATORVASTATIN 40 MG TAB PO SCH (11:36)
[2022-09-07] MEDS: MECLIZINE 12.5 MG TAB PO SCH ×2 (13:29→21:31)
--- NOTE | 2022-09-07 14:15 | Hospitalist Progress Note ---
Date of Service September 07, 2022 Assessment & Plan (1) Acute labyrinthitis: Plan: Ruled out. Her symptoms are probably due to ischemic CVA in the left cerebellar region. Solu-Medrol has been discontinued. Neurology recommended that she stay on meclizine for a while (2) Stage III chronic kidney disease: Plan: Stable. Monitor intake and output. Serial labs (3) History of duodenal ulcer: Plan: Continue PPI therapy. (4) Sensorineural hearing loss (SNHL) of both ears: Plan: Chronic. Supportive care (5) Diabetes: Plan: Type II. ADA diet. Sliding scale coverage as needed. Metformin and piog litazone are temporarily on hold (6) Tinnitus of both ears: Plan: Chronic. Supportive care (7) Acid reflux: Plan: Continue PPI therapy. Stable (8) Spinal stenosis: Plan: C-spine CT scan negative for stenosis. She does have osteoporosis and age- related findings however (9) Intractable nausea and vomiting: Plan: Present on admission. Probably due to ischemic cerebellar CVA. Supportive care. Resolved (10) Dizziness: Plan: Due to ischemic left cerebellar CVA and not labyrinthitis. Solu-Medrol has been discontinued. Plavix has been ordered. She is allergic to aspirin. Neurology recommended meclizine to be continued for a while (11) CVA (cerebral vascular accident): Plan: Ischemic left cerebellar CVA seen on MRI scan. She will be started on Plavix since she is allergic to aspirin. Neurology consultation requested. Will obtain head and neck CTA. This probably accounts for her symptoms previously thought to be due to acute labyrinthitis. Solu-Medrol has been discontinued Plan Hopefully home tomorrow, September 08 Admission and Anticipated Discharge Date Admission Date: September 03, 2022 Subjective Improved overall. Less dizziness with head movement. Cardiac echo was underway. She probably will go home tomorrow, September 08 Review of Systems Review of Systems: Constitutional-no fever or chills ENT-no blurred vision, no double vision, no epistaxis, no sore throat Respiratory-no cough, no wheezing, no shortness of breath Cardiac-no palpitations, no chest pain, no syncope GI-no nausea, vomiting, diarrhea, melena, hematochezia -no urinary retention, no urinary incontinence, no dysuria, no hematuria Musculoskeletal-no joint pain, no muscle tenderness Skin-no bruising, no rashes, no pruritus Neuro-no isolated weakness, no paresthesia, no weakness. She does have vertigo when she turns her head from side to side Psych-no depression, no anxiety Physical Exam Physical Exam: General-alert and oriented x3, no fevers, no chills HEENT-head atraumatic and normocephalic, pupils equal and reactive to light, extraocular muscles intact Neck-no lymphadenopathy or thyromegaly, trachea midline Chest-clear to auscultation percussion. No rales wheezing or rhonchi Cardiac-regular rate and rhythm, normal S1 and S2 Abdomen-normal bowel sounds, nontender, no hepatosplenomegaly Extremities-no cyanosis, clubbing, or edema Neuro-cranial nerves II through XII intact, vertigo symptoms with head turning. Strength symmetrical, no focal deficits Psych-normal affect, normal mood Results & Data Results & Data Vital Signs (Past 12 Hours) Vital Signs Temp Pulse Resp BP Pulse Ox O2 Del Method 09/07/22 07:41 36.4 C L 60 16 138/76 94 Room Air Laboratory Results 09/06/22 07:27 09/06/22 07:27 PG Care Time/CCT Total # of Minutes Spent Total Time Spent with Patient: Total time spent is greater than 50% in coordination of care (as documented) at patient's floor/unit and/or counseling patient: Coding Level of Care Code 97764 SUB INP/OBS CARE 3/50MIN Diagnoses Acute labyrinthitis H83.09 Stage III chronic kidney disease N18.30 History of duodenal ulcer Z87.19 Sensorineural hearing loss (SNHL) of both ears H90.3 Diabetes E11.9 Tinnitus of both ears H93.13 Acid reflux K21.9 Spinal stenosis M48.00 Intractable nausea and vomiting R11.2 Dizziness R42 CVA (cerebral vascular accident) I63.9
--- NOTE | 2022-09-07 16:37 | XCELERA ---
[id number]
--- NOTE | 2022-09-07 16:55 | Neurology Progress Note ---
Date of Service September 07, 2022 Assessment & Plan (1) CVA (cerebral vascular accident): Plan: Impression: The patient had sudden onset vertigo, nausea, vomiting, intermittent double vision, nystagmus, and gait disturbance. Initially, such symptoms were considered due to labyrinthitis but following brain MRI was consistent with acute, small ischemic stroke, involving left middle cerebellar peduncle. The patient has been improving clinically. She is started on Plavix. Blood pressure control has been well. CT angiogram of head and neck were unremarkable. Echocardiogram is unremarkable. Recommendations/plan: Continue on Plavix 75 mg daily for secondary stroke prevention. Continue on Lipitor 40 mg at bedtime. Goal LDL level is lower than 70. Outpatient monitoring by primary care physician. Regular management no hypertension. Management of diabetes mellitus as hyperglycemia might worsen stroke prognosis and will increase future stroke risks. The patient will continue using meclizine prn, maximum for a week duration. She is stable neurologically and can be discharged home. I will contact with [facility] neurology, to set up a follow-up appointment. (2) Diabetes: Admission and Anticipated Discharge Date Admission Date: September 03, 2022 Subjective The patient reports improvement of spinning sensation and dizziness. With rapid change of head position, she feels vertiginous for few seconds. Otherwise, she is back to her baseline. Echocardiogram was completed, which was unremarkable. Review of Systems Review of Systems: All systems reviewed & are unremarkable except as noted in Subjective Physical Exam Physical Exam: General Examination: Constitutional: Well developed person in no acute distress. HENT: Normal exam with inspection. CV: Hearth rhythm is regular. Neck: Supple, no carotid bruits. Lungs: Non-labored and comfortable breathing. Abdomen: Soft, non-tender, non-distended. Skin: No rash or ecchymosis. Extremities: No edema or cyanosis NEUROLOGICAL EXAMINATION: Mental Status: Alert and oriented to place, person and time. Cranial Nerves: II-XII are intact. left gaze induced horizontal nystagmus is noticed Funduscopy: Normal looking optic discs. Motor: 5-/5 in all extremities without asymmetry. Tone: Normal without spasticity or rigidity. Sensory: Intact grossly with decreased vibratory sensation in feet. Coordination: No dysmetria with FTN testing. Speech: Fluent. Comprehension is intact. Gait: Can ambulate with walker. This is somewhat baseline for her. Musculoskeletal: Normal muscle bulk, no atrophy. DTRs: 2+ in upper extremities, and 1+ in lower extremities symmetrically. Plantar flexors bilaterally downgoing. Results & Data Vital Signs (Past 12 Hours) Vital Signs Temp Pulse Resp BP Pulse Ox O2 Del Method 09/07/22 16:30 36.8 C 68 14 135/73 99 Room Air 09/07/22 07:41 36.4 C L 60 16 138/76 94 Room Air Laboratory Results Laboratory Results - last 24 hr 09/06/22 09/06/22 09/07/22 17:07 20:30 07:50 POC Glucose 169 H 205 H 252 H 09/07/22 12:07 POC Glucose 285 H Diagnostic Findings Head CT 09/03/22 17:18 CT head/brain wo con CLINICAL HISTORY: dizzy, vomiting Technique: Contiguous axial CT images of the head were acquired from the base of the skull to the vertex without intravenous contrast administration. Images were viewed in brain, subdural and bone windows. Automated dose lowering techniques and/or adjustment according to patient size were utilized for this exam. Comparison: None available at the time of this dictation. Findings: The ventricles, basal cisterns, and cerebral sulci are normal. There is no acute intracranial hemorrhage or evidence of acute territorial infarction. Neither mass effect, shift of the midline structures, nor abnormal extra-axial fluid collections are shown. Imaged portions of the paranasal sinuses and mastoid air cells are clear. The orbits appear normal. There are no acute fractures of the calvaria or scalp swelling. Impression: No acute intracranial hemorrhage, no evidence of acute territorial infarction or other acute intracranial disease process. ACT 112: Negative or not required by law. Electronically signed by: Jigar Soto M.D. 09/03/2022 6:38 PM KUB X-Ray 09/03/22 19:54 KUB CLINICAL HISTORY: Vomiting. FINDINGS: 2 AP supine abdominal radiographs are correlated with abdominal CT dated 02/08/2021. There is a nonobstructed abdominal bowel gas pattern. No evidence of intraperitoneal free air is seen on the supine images. Mild fecal retention is noted throughout the colon. Suspect bilateral nephrolithiasis. Phleboliths are present in the pelvis. The skeletal structures are osteopenic. Postsurgical change is partially visualized in the right proximal femur. Lumbosacral spondylosis is noted. IMPRESSION: 1. No acute abnormality is identified. 2. Suspect bilateral nephrolithiasis. Electronically signed by: Contreras Perez M.D. 09/04/2022 7:[address] 09/03/22 20:48 Exam(s): CT C SPINE EXAM: CT Cervical Spine Without Intravenous Contrast CLINICAL HISTORY: Reason for exam: neck pain, dizzy and vomits when turns head left. TECHNIQUE: Axial computed tomography images of the cervical spine without intravenous contrast. CTDI is 14.34 mGy and DLP is 273.65 mGy-cm. Automated exposure control was utilized for the study. A dose lowering technique was utilized adhering to the principles of ALARA. COMPARISON: No relevant prior studies available. FINDINGS: Vertebrae: Probable osteoporosis. No acute fracture. Discs/spinal canal/neural foramina: Mild to moderate degenerative disc and facet disease, commensurate with age. Soft tissues: Unremarkable. IMPRESSION: 1. Osteoporosis and degenerative change. 2. No fracture or acute bony abnormality. Electronically signed by: Susana Arguello M.D. 09/03/22 23:04 PM Brain MRI 09/06/22 09:00 MRI OF THE BRAIN WITHOUT CONTRAST CLINICAL HISTORY: Vertigo. COMPARISON STUDY: Head CT September 03, 2022. TECHNIQUE: Utilizing a 1.5 Sugey magnet and dedicated coil, multiplanar, multiecho imaging of the brain was performed without IV contrast. FINDINGS: Note is made of a small 5 mm focus of restricted diffusion within the left middle cerebellar peduncle shown on axial diffusion-weighted sequence image 6 of . This is hypointense on the ADC map and there is mild corresponding increased signal on the FLAIR and T2-weighted sequences. This favors a small acute infarct. A 1.1 x 0.9 cm T2 hyperintense focus within the right middle cerebellar peduncle favors an old infarct. Demyelinating disease could appear similar but is considered less likely. Ventricular system is unremarkable. Basal cisterns are patent. There are no extra-axial collections. White matter T2 hyperintense foci suggest mild small vessel disease. Diminished signal intensity within the bilateral basal ganglia is due to calcification/mineralization shown on head CT. Calvarial signal is normal. There is no acute intracranial hemorrhage, midline shift or mass effect. IMPRESSION: 1. Small 5 mm focus restricted diffusion within the left middle cerebellar peduncle. Mild associated signal abnormality. This is nonspecific but favors a small acute infarct. Demyelinating disease could appear similar although is considered less likely. 2. 1.1 x 0.9 cm T2 hyperintense focus within the right middle cerebellar peduncle which is chronic. This may reflect an old infarct or less likely an old plaque. 3. No acute hemorrhage. ACT 112: Negative or not required by law. Electronically signed by: Miky Go M.D. 09/06/2022 11:53 AM Head CTA 09/06/22 15:06 CT angio head w con, CT angio neck with con CLINICAL HISTORY: 77 years-old Female with cerebellar CVA. Acute strokelike symptoms COMPARISON STUDY: Brain MRI of same day, head CT 2022 TECHNIQUE: Following the IV administration of 118 cc of Optiray, CT angiogram of the head and neck was performed from the skull base to the vertex. Images are reviewed in the axial, sagittal, and coronal planes. 3-D MIPS images are created and assessed. IV contrast was administered without complication. All measurements were obtained according to NASCET criteria. A dose lowering technique was utilized adhering to the principles of ALARA. CT DOSE: 544.24 mGy.cm FINDINGS: CT ANGIOGRAM OF THE HEAD AND NECK: Four-vessel morphology of the thoracic aortic arch. No pulmonary emboli identified. There is patency of the innominate and imaged subclavian arteries. The common carotid arteries are patent. Moderate atherosclerotic plaque of the carotid bulbs and proximal cervical segments of the internal carotid arteries, left greater than right results in less than 50% stenosis bilaterally. Bilateral anterior and middle cerebral arteries are also patent. Dominant right vertebral artery is widely patent. Developmentally diminutive left vertebral artery originates from the thoracic aortic arch and terminates into the left PICA. The basilar and posterior cerebral arteries are patent with there is at least mild narrowing noted within the distal right posterior cerebral artery. There is no aneurysm, high-grade stenosis, or proximal branch occlusion identified. Dural sinuses appear patent. No abnormal intracranial enhancement. Involutional changes with chronic microvascular ischemic disease. Senescent calcifications of the lentiform nuclei. Chronic appearing infarcts in the right middle cerebellar peduncle. Lung apices appear clear. No pneumothorax. 8 mm hypodense left thyroid nodule. Degenerative changes of the cervical spine. IMPRESSION: 1. The subcentimeter acute infarct within the left middle cerebellar peduncle is not visualized by CT. 2. No aneurysm, dissection, high-grade stenosis or arterial occlusion identified. 3. Moderate atherosclerotic plaque of the carotid bulbs and proximal cervical segments of the internal carotid arteries results in less than 50% stenosis bilaterally. ACT 112: Negative or not required by law. The above report was generated using voice recognition software. It may contain grammatical, syntax or spelling errors. Electronically signed by: Macario Mccarthy M.D. 09/06/2022 4:36 PM Neck CTA 09/06/22 15:06 CT angio head w con, CT angio neck with con CLINICAL HISTORY: 77 years-old Female with cerebellar CVA. Acute strokelike symptoms COMPARISON STUDY: Brain MRI of same day, head CT 2022 TECHNIQUE: Following the IV administration of 118 cc of Optiray, CT angiogram of the head and neck was performed from the skull base to the vertex. Images are reviewed in the axial, sagittal, and coronal planes. 3-D MIPS images are created and assessed. IV contrast was administered without complication. All measurements were obtained according to NASCET criteria. A dose lowering tech nique was utilized adhering to the principles of ALARA. CT DOSE: 544.24 mGy.cm FINDINGS: CT ANGIOGRAM OF THE HEAD AND NECK: Four-vessel morphology of the thoracic aortic arch. No pulmonary emboli identified. There is patency of the innominate and imaged subclavian arteries. The common carotid arteries are patent. Moderate atherosclerotic plaque of the carotid bulbs and proximal cervical segments of the internal carotid arteries, left greater than right results in less than 50% stenosis bilaterally. Bilateral anterior and middle cerebral arteries are also patent. Dominant right vertebral artery is widely patent. Developmentally diminutive left vertebral artery originates from the thoracic aortic arch and terminates into the left PICA. The basilar and posterior cerebral arteries are patent with there is at least mild narrowing noted within the distal right posterior cerebral artery. There is no aneurysm, high-grade stenosis, or proximal branch occlusion identified. Dural sinuses appear patent. No abnormal intracranial enhancement. Involutional changes with chronic microvascular ischemic disease. Senescent calcifications of the lentiform nuclei. Chronic appearing infarcts in the right middle cerebellar peduncle. Lung apices appear clear. No pneumothorax. 8 mm hypodense left thyroid nodule. Degenerative changes of the cervical spine.
[2022-09-07] MEDS: DOCUSATE SODIUM 100 MG CAP PO PRN (17:29)
[2022-09-07] MEDS ORDERED: POLYETHYLENE (MIRALAX) 17 GM PACK PO PRN (19:55)
[2022-09-08 07:21] LABS: Chol HDL Ratio 3.1 (0-5)
[2022-09-08] MEDS: INSULIN ASPART PER UNIT CHARGE SC SCH ×2 (08:45→12:51)
[2022-09-08] MEDS: CLOPIDOGREL BISULFATE 75 MG TAB PO SCH (08:46)
[2022-09-08] MEDS: CHOLECALCIFEROL 1,000 UNITS 25 MCG TAB PO SCH (08:46)
[2022-09-08] MEDS: MECLIZINE 12.5 MG TAB PO SCH ×2 (08:46→13:36)
[2022-09-08] MEDS: ATORVASTATIN 40 MG TAB PO SCH (08:46)
[2022-09-08] MEDS: LOSARTAN POTASSIUM 25 MG TAB PO SCH (08:47)
[2022-09-08] MEDS: PANTOprazole 40 MG TAB PO SCH (08:47)
--- NOTE | 2022-09-08 11:17 | Discharge Summary ---
Date of Service September 08, 2022 Admission HPI Per Admitting Provider The patient is a 77-year-old female with a past medical history including CKD stage III, duodenal ulcer, SNHL of bilateral ears, diabetes mellitus, right femoral shaft fracture, tinnitus, hypertension, bilateral nephrolithiasis and gallstones. She presents to the emergency department as noted above. CT scan of head was negative, KUB was negative. CT scan of the cervical spine is ordered and pending Significant laboratories: Hemoglobin 12.9, hematocrit 38.3, sodium 133, glucose 206 and magnesium 1.5 COVID-19, influenza A and B and RSV testing all negative Principal Diagnosis Ischemic left cerebellar CVA Discharge Exam General-alert and oriented x3, no fevers, no chills HEENT-head atraumatic and normocephalic, pupils equal and reactive to light, extraocular muscles intact Neck-no lymphadenopathy or thyromegaly, trachea midline Chest-clear to auscultation percussion. No rales wheezing or rhonchi Cardiac-regular rate and rhythm, normal S1 and S2 Abdomen-normal bowel sounds, nontender, no hepatosplenomegaly Extremities-no cyanosis, clubbing, or edema Neuro-cranial nerves II through XII intact, vertigo symptoms with head turning. Strength symmetrical, no focal deficits Psych-normal affect, normal mood Discharge Data Allergies Allergy/AdvReac Type Severity Reaction Status Date / Time adhesive tape Allergy Unknown Blisters Verified 01/04/22 14:54 aspirin Allergy Unknown BLACKS OUT Verified 01/04/22 14:54 VISION , EVERYTHING TURNS BLACK Latex, Natural Rubber Allergy Unknown BLISTERS Verified 01/04/22 14:54 cephalexin AdvReac Unknown GI upset Verified 01/04/22 14:54 ciprofloxacin AdvReac Unknown N/V Verified 01/04/22 14:54 Opioids - Morphine Analogues AdvReac Unknown N/V Verified 01/04/22 14:54 Consultations 09/03/22 19:51 ED Decision to Admit Stat 09/06/22 15:06 Consult Neurology Routine Ordered Studies 09/03/22 17:18 CT head/brain wo con Stat 09/03/22 20:48 CT cervical spine wo con Stat 09/06/22 09:00 MRI Brain [MR brain wo con] Urgent 09/06/22 15:06 CTA head w con [CT angio head w con] Urgent CTA neck with con [CT angio neck with con] Urgent Hospital Course (1) Acute labyrinthitis: Ruled out. Her symptoms are probably due to ischemic CVA in the left cerebellar region. Solu-Medrol has been discontinued. Neurology recommended that she stay on meclizine for a while (2) Stage III chronic kidney disease: Stable. Monitor intake and output. Serial labs (3) History of duodenal ulcer: Continue PPI therapy. (4) Sensorineural hearing loss (SNHL) of both ears: Chronic. Supportive care (5) Diabetes: Type II. ADA diet. Sliding scale coverage as needed. Metformin and pioglitazone are temporarily on hold (6) Tinnitus of both ears: Chronic. Supportive care (7) Acid reflux: Continue PPI therapy. Stable (8) Spinal stenosis: C-spine CT scan negative for stenosis. She does have osteoporosis and age- related findings however (9) Intractable nausea and vomiting: Present on admission. Probably due to ischemic cerebellar CVA. Supportive care. Resolved (10) Dizziness: Due to ischemic left cerebellar CVA and not labyrinthitis. Solu-Medrol has been discontinued. Plavix has been ordered. She is allergic to aspirin. Neurology recommended meclizine to be continued for a while (11) CVA (cerebral vascular accident): Ischemic left cerebellar CVA seen on MRI scan. She will be started on Plavix since she is allergic to aspirin. Neurology consultation requested. Will obtain head and neck CTA. This probably accounts for her symptoms previously thought to be due to acute labyrinthitis. Solu-Medrol has been discontinued Plan Home today, September 08, on Plavix and a atorvastatin. She will remain on meclizine for 1 more week. Total Time Total Time Spent Total Time Spent (In Minutes): 40 minutes Discharge Plan Discharge Items Patient Disposition: Home - Home Health Services Reason For Visit: INTRACTABLE NAUSEA/VOMITING, NECK PAIN Discharge Diagnosis: Acute labyrinthitis with associated nausea and vomiting Activity: Resume your previous activity Non-emergency contact: Primary Care Provider Call non-emergency contact if: you have any medication questions and your symptoms worsen Follow-up/Referrals: Jovanna Gonzalez CRNP [Primary Care Provider] - 09/18/22 2:00 pm Diet: Carb Consistent or DM2 and Heart Healthy Addtl Attending Provider Instructions: Take meclizine 3 times daily until symptoms completely resolved. Take prednisone in a tapering dose fashion as directed Pending Studies at Discharge: No Stand-Alone Forms: My [facility], Smoking Cessation Medications and DC Order Prescriptions: New atorvastatin 40 mg Tablet 40 mg PO QAM Qty: 30 0RF clopidogrel 75 mg Tablet 75 mg PO QAM Qty: 30 0RF meclizine 12.5 mg Tablet 12.5 mg PO TID Qty: 15 0RF Continued (DME) wheelchair device See Dose Instructions .ROUTE .MEDSUPPLY Qty: 1 0RF Dose Instruction: As directed Rx Instructions: standard wheelchair with adjustable stirrups [id number] losartan 25 mg tablet 25 mg PO DAILY Qty: 90 3RF tramadol 50 mg tablet 50 mg PO BID PRN (Reason: pain) Qty: 40 0RF (DME) OneTouch Ultra Test Strip See Rx Instructions .Route Qty: 100 3RF Rx Instructions: test twice daily cholecalciferol (vitamin D3) [Vitamin D3] 25 mcg (1,000 unit) Tablet 1,000 mcg PO DAILY Collagen 1,000 mg PO DAILY Patient Comments: TABLET 1000 MG pioglitazone-metformin [Actoplus MET] 15-500 mg tablet 1 tab PO BID pantoprazole 40 mg tablet,delayed release (DR/EC) 40 mg PO DAILY Discharge Orders: Discharge Order (Routine); Ordered 09/08/22 Ordered By: Herve Alvares/Other Patient Handouts: Managing Type 2 Diabetes Admission Data Admit Date/Time: 09/03/22 21:56 Attending Provider: Herve Wolf Admit Provider: En Pak Primary Care Provider: Jovanna Gonzalez Other Providers: En Pak ; [facility] ; [facility] ; Peter Dwyer ; Luis Felipe Ray ; Leticia Petersen ; Marissa Martin ; Laina Dominguez ; Prosper Cotter ; Laina Manuel ; Chepe Rowe ; Tk Lala ; Ysabel Choi ; Preethi Schofield ; Prosper Harry ; [place] ; [facility] Coding Level of Care Code 65495 INP/OBS DISCH >30 MIN Diagnoses Acute labyrinthitis H83.09 Stage III chronic kidney disease N18.30 History of duodenal ulcer Z87.19 Sensorineural hearing loss (SNHL) of both ears H90.3 Diabetes E11.9 Tinnitus of both ears H93.13 Acid reflux K21.9 Spinal stenosis M48.00 Intractable nausea and vomiting R11.2 Dizziness R42 CVA (cerebral vascular accident) I63.9
== END 2022-09-08 14:38 | disposition home health service (06) | DRG 66 ==
LOC: ED 16:13 → SUATTDRO 21:56 → 3W 21:56